=== PATIENT | male | born 1960 | race Caucasian/White ===

== ENCOUNTER 2016-10-01 09:55 | Inpatient (IN) | payer OTHER ==
[2016-10-01] MEDS ORDERED: oxyCODONE/Acetamin 5/325 MG* TAB PO PRN (12:05)
[2016-10-01] MEDS ORDERED: Ondansetron INJ* 2 MG/ML VIAL IV PRN (12:30)
[2016-10-01] MEDS: VINCRISTINE IVPB SCH (16:23)
[2016-10-01] MEDS: NS 0.9% IVPB SCH (16:23)
[2016-10-01] MEDS: ETOPOSIDE IVPB SCH (16:23)
[2016-10-01] MEDS: DOXORUBICIN IVPB SCH (16:23)
[2016-10-01] MEDS: predniSONE TAB* 20 MG PO SCH ×2 (16:39→21:01)
[2016-10-01] MEDS: predniSONE TAB* 50 MG PO SCH ×2 (16:39→21:00)
[2016-10-01] MEDS: predniSONE TAB* 5 MG PO SCH ×2 (16:40→21:01)
[2016-10-01] MEDS: Senna TAB PO PRN (20:59)
[2016-10-01] MEDS: Morphine TAB Extended Release (*) 15 MG TAB.ER PO SCH (21:01)
[2016-10-01] MEDS ORDERED: Acetaminophen TAB* 325 MG PO PRN (23:22)
[2016-10-01] MEDS ORDERED: Polyethylene Glycol 3350* 17 GM PACKET PO PRN (23:23)
[2016-10-02 06:44] LABS: Comments Flag Yes; Hematocrit 26 % (42-52); Mean Corpuscular HGB Conc 34 g/dl (31-36); Mean Corpuscular Hemoglobin 29 pg (27-31); Mean Corpuscular Volume 86 fL (80-94); Mean Platelet Volume 8 um3 (7.4-10.4); Red Blood Count 3.08 10^6/ul (4.0-5.4); Red Cell Distribution Width 19 % (10.5-15)
[2016-10-02 07:01] LABS: Albumin 3.6 g/dL (3.2-5.2); BUN/Creatinine Ratio 27.6 (8-20); Calcium 8.8 mg/dL (8.6-10.3); EGFR African American 185.7 (>60); EGFR Non-African American 144.4 (>60); Globulin 2.2 g/dL (2-4); Potassium 4.2 mmol/L (3.5-5.0); Total Bilirubin 0.9 mg/dL (0.2-1.0); Total Protein 5.8 g/dL (6.4-8.9)
[2016-10-02] MEDS: predniSONE TAB* 50 MG PO SCH ×2 (07:40→20:36)
[2016-10-02] MEDS: Allopurinol TAB* 300 MG PO SCH (07:40)
[2016-10-02] MEDS: Morphine TAB Extended Release (*) 15 MG TAB.ER PO SCH ×2 (07:41→20:34)
[2016-10-02] MEDS: predniSONE TAB* 5 MG PO SCH ×2 (07:41→20:36)
[2016-10-02] MEDS: Lisinopril TAB* 5 MG PO SCH (07:41)
[2016-10-02] MEDS: predniSONE TAB* 20 MG PO SCH ×2 (07:41→20:36)
[2016-10-02] MEDS: ETOPOSIDE IVPB SCH (15:46)
[2016-10-02] MEDS: NS 0.9% IVPB SCH (15:46)
[2016-10-02] MEDS: VINCRISTINE IVPB SCH (15:46)
[2016-10-02] MEDS: DOXORUBICIN IVPB SCH (15:46)
[2016-10-03 05:52] LABS: Hematocrit 25 % (42-52); Hemoglobin 8.4 g/dl (14.0-18.0); Mean Corpuscular HGB Conc 34 g/dl (31-36); Mean Corpuscular Hemoglobin 29 pg (27-31); Mean Corpuscular Volume 86 fL (80-94); Mean Platelet Volume 8 um3 (7.4-10.4); Red Cell Distribution Width 19 % (10.5-15)
[2016-10-03 05:54] LABS: Comments Flag Yes; White Blood Count 3.1 10^3/ul (3.5-10.8)
[2016-10-03 06:03] LABS: Albumin 3.2 g/dL (3.2-5.2); Calcium 8.5 mg/dL (8.6-10.3); EGFR African American 220.4 (>60); EGFR Non-African American 171.4 (>60); Globulin 2.1 g/dL (2-4); Potassium 3.9 mmol/L (3.5-5.0); Total Bilirubin 0.6 mg/dL (0.2-1.0); Total Protein 5.3 g/dL (6.4-8.9)
[2016-10-03] MEDS: Allopurinol TAB* 300 MG PO SCH (08:19)
[2016-10-03] MEDS: Lisinopril TAB* 5 MG PO SCH (08:20)
[2016-10-03] MEDS: Morphine TAB Extended Release (*) 15 MG TAB.ER PO SCH ×2 (08:20→22:01)
[2016-10-03] MEDS: predniSONE TAB* 50 MG PO SCH ×2 (08:20→22:01)
[2016-10-03] MEDS: predniSONE TAB* 20 MG PO SCH ×2 (08:21→22:02)
[2016-10-03] MEDS: predniSONE TAB* 5 MG PO SCH ×2 (08:21→22:02)
[2016-10-03] MEDS: NS 0.9% 1000 ML* 1,000 ML IV SCH (09:33)
[2016-10-03] MEDS ORDERED: Polyethylene Glycol 3350* 17 GM PACKET PO SCH (11:00)
[2016-10-03] MEDS: VINCRISTINE IVPB SCH (16:09)
[2016-10-03] MEDS: NS 0.9% IVPB SCH (16:09)
[2016-10-03] MEDS: ETOPOSIDE IVPB SCH (16:09)
[2016-10-03] MEDS: DOXORUBICIN IVPB SCH (16:09)
[2016-10-03] MEDS: Senna TAB PO PRN (22:02)
[2016-10-04 05:05] LABS: Hematocrit 26 % (42-52); Hemoglobin 8.6 g/dl (14.0-18.0); Mean Corpuscular HGB Conc 33 g/dl (31-36); Mean Corpuscular Hemoglobin 28 pg (27-31); Mean Corpuscular Volume 85 fL (80-94); Mean Platelet Volume 8 um3 (7.4-10.4); Red Blood Count 3.03 10^6/ul (4.0-5.4); Red Cell Distribution Width 18 % (10.5-15); White Blood Count 2.1 10^3/ul (3.5-10.8)
[2016-10-04 05:14] LABS: Add Diff/Slide Review? Slide Review Added; Comments Flag Yes
[2016-10-04 05:23] LABS: Albumin 3.1 g/dL (3.2-5.2); Calcium 8.5 mg/dL (8.6-10.3); EGFR African American 220.4 (>60); EGFR Non-African American 171.4 (>60); Globulin 2.3 g/dL (2-4); Potassium 4.1 mmol/L (3.5-5.0); Total Bilirubin 0.5 mg/dL (0.2-1.0); Total Protein 5.4 g/dL (6.4-8.9)
[2016-10-04] MEDS: NS 0.9% 1000 ML* 1,000 ML IV SCH (05:32)
[2016-10-04] MEDS: Morphine TAB Extended Release (*) 15 MG TAB.ER PO SCH ×2 (08:01→20:58)
[2016-10-04] MEDS: Allopurinol TAB* 300 MG PO SCH (08:02)
[2016-10-04] MEDS: predniSONE TAB* 5 MG PO SCH ×2 (08:02→20:59)
[2016-10-04] MEDS: Lisinopril TAB* 5 MG PO SCH (08:02)
[2016-10-04] MEDS: Senna TAB PO PRN (08:02)
[2016-10-04] MEDS: predniSONE TAB* 50 MG PO SCH ×2 (08:03→20:59)
[2016-10-04] MEDS: predniSONE TAB* 20 MG PO SCH ×2 (08:03→20:59)
--- NOTE | 2016-10-04 09:08 | PN ---
Progress Note - Progress Note SOAP: Subjective: []Feeling well overall, no nausea and eating fine. Constipated, but only just started laxatives last night. Curious about showering. Questions if he should still plan a port between C1&2. Medications: Acetaminophen (Tylenol Tab*) 650 mg PO Q6H PRN PRN Reason: FEVER Last Admin: 10/01/16 23:34 Dose: 650 mg Allopurinol (Zyloprim Tab*) 300 mg PO DAILY [facility] Last Admin: 10/04/16 08:02 Dose: 300 mg Heparin Sodium (Porcine) (Heparin Flush Picc/Ml/Cvc(*)) 1 - 3 ml FLUSH 0600, 1800 [facility] PRN Reason: Protocol Last Admin: 10/04/16 04:49 Dose: Not Given Sodium Chloride (Ns 0.9% 1000 Ml*) 1,000 mls @ 50 mls/hr IV .PER RATE [facility] Last Admin: 10/04/16 05:32 Dose: 50 mls/hr Etoposide 105 mg/ Doxorubicin HCl 21 mg/ Vincristine Sulfate 0.84 mg/ Sodium Chloride 516.59 mls @ 21.525 mls/hr IVPB Q24H [facility] Stop: 10/05/16 15:29 Last Admin: 10/03/16 16:09 Dose: 21.525 mls/hr Cyclophosphamide 1,575 mg/ (Sodium Chloride) 328.75 mls @ 789 mls/hr IVPB ONCE ONE Stop: 10/05/16 15:54 Lisinopril (Prinivil Tab*) 5 mg PO DAILY [facility] Last Admin: 10/04/16 08:02 Dose: 5 mg Morphine Sulfate (Ms Contin(*)) 15 mg PO BID [facility] Last Admin: 10/04/16 08:01 Dose: 15 mg Ondansetron HCl (Zofran Inj*) 8 mg IV Q6H PRN PRN Reason: NAUSEA Oxycodone/Acetaminophen (Percocet 5/325 Tab*) 1 tab PO Q6H PRN PRN Reason: PAIN Last Admin: 10/01/16 16:30 Dose: 1 tab Polyethylene Glycol/Electrolytes (Miralax*) 17 gm PO 0800,2100 PRN PRN Reason: CONSTIPATION Prednisone (Deltasone Tab*) 100 mg PO BID [facility] Stop: 10/05/16 21:01 Last Admin: 10/04/16 08:03 Dose: 100 mg Prednisone (Deltasone Tab*) 20 mg PO BID [facility] Stop: 10/05/16 21:01 Last Admin: 10/04/16 08:03 Dose: 20 mg Prednisone (Deltasone Tab*) 5 mg PO BID [facility] Stop: 10/05/16 21:01 Last Admin: 10/04/16 08:02 Dose: 5 mg Senna (Senokot Tab*) 1 tab PO TID [facility] Objective: [] Vital Signs Temp Pulse Resp BP Pulse Ox 97.7 F 60 18 127/68 99 10/04/16 06:53 10/04/16 07:22 10/04/16 08:01 10/04/16 06:53 10/04/16 06:53 A&Ox3, EOMI, PERRLA HRR, S1S2, no murmur noted LS clear bilat. throughout, resp. even and non-labored +BS, abd. soft and non-tender +PP=bilat., no edema noted Right dual lumen PICC benign Laboratory Results - last 24 hr 10/04/16 10/04/16 04:25 04:25 WBC 2.1 L RBC 3.03 L Hgb 8.6 L Hct 26 L MCV 85 MCH 28 MCHC 33 RDW 18 H Plt Count 61 L MPV 8 Neut % (Auto) 85.5 H Lymph % (Auto) 13.3 L [place] % (Auto) 0.9 L Eos % (Auto) 0.1 Baso % (Auto) 0.2 Absolute Neuts (auto) 1.8 Absolute Lymphs (auto) 0.3 L Absolute Monos (auto) 0 Absolute Eos (auto) 0 Absolute Basos (auto) 0 Absolute Nucleated RBC 0.01 Nucleated RBC % 0.3 Sodium 138 Potassium 4.1 Chloride 108 Carbon Dioxide 23 Anion Gap 7 BUN 18 Creatinine 0.50 L Est GFR ( Amer) 220.4 Est GFR (Non-Af Amer) 171.4 BUN/Creatinine Ratio 36.0 H Glucose 163 H Calcium 8.5 L Total Bilirubin 0.50 AST 10 L ALT 23 Alkaline Phosphatase 114 H Total Protein 5.4 L Albumin 3.1 L Globulin 2.3 Albumin/Globulin Ratio 1.3 Assessment: []56 yo with DLBCL currently on C1 EPOCH, D4 and doing well. Plan: []1. Increase laxatives, will need to be d/c'd with colace scheduled d/t Morphine 2. Cont. chemo, no changes today. OK to shower /c switch of bags if desired. 3. Suggest dual lumen port between cycles, we will coordinate as outpatient.
[2016-10-04] MEDS: Polyethylene Glycol 3350* 17 GM PACKET PO PRN ×2 (09:35→20:58)
[2016-10-04] MEDS: Senna TAB PO SCH ×2 (14:25→20:59)
[2016-10-04] MEDS: NS 0.9% IVPB SCH (15:43)
[2016-10-04] MEDS: VINCRISTINE IVPB SCH (15:43)
[2016-10-04] MEDS: DOXORUBICIN IVPB SCH (15:43)
[2016-10-04] MEDS: ETOPOSIDE IVPB SCH (15:43)
[2016-10-05] MEDS: NS 0.9% 1000 ML* 1,000 ML IV SCH (00:35)
[2016-10-05 05:54] LABS: Hematocrit 27 % (42-52); Mean Corpuscular HGB Conc 33 g/dl (31-36); Mean Corpuscular Hemoglobin 28 pg (27-31); Mean Corpuscular Volume 85 fL (80-94); Mean Platelet Volume 8 um3 (7.4-10.4); Red Blood Count 3.19 10^6/ul (4.0-5.4); Red Cell Distribution Width 19 % (10.5-15)
[2016-10-05 06:00] LABS: Comments Flag Yes
[2016-10-05 06:01] LABS: White Blood Count 1.8 10^3/ul (3.5-10.8)
[2016-10-05 06:09] LABS: Albumin 3.2 g/dL (3.2-5.2); BUN/Creatinine Ratio 31.5 (8-20); Calcium 8.4 mg/dL (8.6-10.3); EGFR African American 201.7 (>60); EGFR Non-African American 156.8 (>60); Globulin 2.2 g/dL (2-4); Potassium 3.6 mmol/L (3.5-5.0); Total Bilirubin 0.6 mg/dL (0.2-1.0); Total Protein 5.4 g/dL (6.4-8.9)
[2016-10-05 09:39] VITALS: BP 131/77
[2016-10-05] MEDS: Allopurinol TAB* 300 MG PO SCH (09:39)
[2016-10-05] MEDS: predniSONE TAB* 20 MG PO SCH (09:39)
[2016-10-05] MEDS: Morphine TAB Extended Release (*) 15 MG TAB.ER PO SCH (09:39)
[2016-10-05] MEDS: predniSONE TAB* 5 MG PO SCH (09:40)
[2016-10-05] MEDS: predniSONE TAB* 50 MG PO SCH (09:40)
[2016-10-05] MEDS: Lisinopril TAB* 5 MG PO SCH (09:40)
[2016-10-05] MEDS: Senna TAB PO SCH ×2 (09:41→16:53)
[2016-10-05] MEDS: Polyethylene Glycol 3350* 17 GM PACKET PO PRN (09:49)
--- NOTE | 2016-10-05 11:50 | PN ---
Progress Note - Progress Note SOAP: DISCHARGE NOTE Subjective: [ Doing well and tolerated chemotherapy without significant side effects so far. Cannot sleep in hospital. Has had training on Neupogen shots. Meeting with patient and family to discuss plan of care] Acetaminophen (Tylenol Tab*) 650 mg PO Q6H PRN PRN Reason: FEVER Last Admin: 10/01/16 23:34 Dose: 650 mg Allopurinol (Zyloprim Tab*) 300 mg PO DAILY [facility] Last Admin: 10/05/16 09:39 Dose: 300 mg Heparin Sodium (Porcine) (Heparin Flush Picc/Ml/Cvc(*)) 1 - 3 ml FLUSH 0600, 1800 [facility] PRN Reason: Protocol Last Admin: 10/05/16 05:43 Dose: Not Given Sodium Chloride (Ns 0.9% 1000 Ml*) 1,000 mls @ 50 mls/hr IV .PER RATE [facility] Last Admin: 10/05/16 00:35 Dose: 50 mls/hr Etoposide 105 mg/ Doxorubicin HCl 21 mg/ Vincristine Sulfate 0.84 mg/ Sodium Chloride 516.59 mls @ 21.525 mls/hr IVPB Q24H [facility] Stop: 10/05/16 15:29 Last Admin: 10/04/16 15:43 Dose: 21.525 mls/hr Cyclophosphamide 1,575 mg/ (Sodium Chloride) 328.75 mls @ 789 mls/hr IVPB ONCE ONE Stop: 10/05/16 15:54 Lisinopril (Prinivil Tab*) 5 mg PO DAILY [facility] Last Admin: 10/05/16 09:40 Dose: 5 mg Morphine Sulfate (Ms Contin(*)) 15 mg PO BID [facility] Last Admin: 10/05/16 09:39 Dose: 15 mg Ondansetron HCl (Zofran Inj*) 8 mg IV Q6H PRN PRN Reason: NAUSEA Oxycodone/Acetaminophen (Percocet 5/325 Tab*) 1 tab PO Q6H PRN PRN Reason: PAIN Last Admin: 10/01/16 16:30 Dose: 1 tab Polyethylene Glycol/Electrolytes (Miralax*) 17 gm PO 0800,2100 PRN PRN Reason: CONSTIPATION Last Admin: 10/05/16 09:49 Dose: 17 gm Prednisone (Deltasone Tab*) 100 mg PO BID [facility] Stop: 10/05/16 21:01 Last Admin: 10/05/16 09:40 Dose: 100 mg Prednisone (Deltasone Tab*) 20 mg PO BID [facility] Stop: 10/05/16 21:01 Last Admin: 10/05/16 09:39 Dose: 20 mg Prednisone (Deltasone Tab*) 5 mg PO BID [facility] Stop: 10/05/16 21:01 Last Admin: 10/05/16 09:40 Dose: 5 mg Senna (Senokot Tab*) 1 tab PO TID [facility] Last Admin: 10/05/16 09:41 Dose: 1 tab Objective: [] Vital Signs Temp Pulse Resp BP Pulse Ox 97.5 F 67 18 131/77 99 10/05/16 07:53 10/05/16 07:53 10/05/16 09:39 10/05/16 07:53 10/05/16 07:53 HEENT: Mucosa moist, no lesions. No LAD CTA RRR S1S2 Good BS, NT and ND No peripheral LAD Skin w/o lesions Assessment: [] 56 year old male with DLBCL, multifocal bone marrow infiltration, positive for c-myc mutation, bcl-2 and bcl-6. Day #5 R- daEPOCH. 1. Will plan discharge today after completion of chemotherapy. 2. Neupogen at home for 10 days 3. Follow up on 10/15/16 4. Extensive discussion about diagnosis, reason for current treatment, plan for care and prognosis. Also discussed again need for IT chemotherapy cycles 2-5. 5. PET scan after cycle 3 6. Cytopenias should improve with therapy, will follo 7. Follow up Hep B testing, LFTs. 8. Rapid taper Prednisone, home meds for nausea discussed. time with patient and family 70 min. Plan: []
[2016-10-05] MEDS ORDERED: NS 0.9% IVPB ONE (15:30)
[2016-10-05] MEDS ORDERED: CYCLOPHOSPHAMIDE IVPB ONE (15:30)
[2016-10-05] MEDS ORDERED: predniSONE TAB* 50 MG PO ONE (16:30)
[2016-10-05] MEDS ORDERED: predniSONE TAB* 10 MG PO ONE (16:30)
[2016-10-05] MEDS ORDERED: predniSONE TAB* 5 MG PO ONE (16:30)
--- NOTE | 2017-01-09 09:09 | DS ---
DISCHARGE SUMMARY: DATE OF ADMISSION: 10/01/16 DATE OF DISCHARGE: 10/05/16 ATTENDING PHYSICIAN: Dr. 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 2. Gout: Stable on current medications. DISCHARGE MEDICATIONS: 1. Acetaminophen 650 mg p.o. q.6 hours p.r.n. pain, do not take for fever unless directed by office. 2. MiraLAX 17 g p.o. b.i.d. p.r.n. constipation. 3. Neupogen 480 mcg subcutaneously daily as directed following chemotherapy, starting day six. 4. Percocet 5/325 mg 1 tab p.o. daily q.6 hours p.r.n. pain. 5. Allopurinol 300 mg p.o. every day. 6. Lisinopril 5 mg p.o. every day. 7. Colchicine 0.6 mg p.o. q.12 hours p.r.n. pain. 8. Morphine 1 tab p.o. b.i.d. 9. Senna 1 tab p.o. daily p.r.n. constipation. HOSPITAL COURSE: Please see admission note for full H and P; however, briefly, Mr. Lamar was recently diagnosed with triple-hit lymphoma and was admitted for initiation of dose-adjusted EPOCH. He was admitted on day one of cycle one , 10/01/16, with known cytopenias related to his disease process. He received a peripherally inserted central line for treatment with cycle one, and plan was to consider port with cycle two. Cycle one was tolerated without difficulty and no complications. Dr. Ayers met with the patient during the admission to discuss the plan of care at length. On discharge, the patient had no complaints or concern. He had excellent understanding of the plan of care. TIME SPENT: Greater than 40 minutes were spent with greater than 50% in face-to - face counseling. ANANYA STEWART, ANDREI [id number]/[facility] #: [id number] MTDD
== END 2016-10-05 17:15 | disposition home or self-care (01) | DRG 847 ==
LOC: MED 11:39
PROVIDERS: ADMIT Internal Medicine Hematology & Oncology; ATTEND Internal Medicine Hematology & Oncology
DX: Z51.11 Encounter for antineoplastic chemotherapy (principal); C83.30 Diffuse large B-cell lymphoma, unspecified site; D69.6 Thrombocytopenia, unspecified; K59.00 Constipation, unspecified
CPT/HCPCS: 36415; 36569; 36591; 80053; 85025; 85060; 86703; 86705; 86706; 86708; 86803; 87340; 96367; 96375; 96413; 96415; 99212; 99214; 99223; 99232; 99239; A9270-GY; C1751; G0463; J1200; J1453; J2469; J7512; J9000; J9070; J9181; J9310; J9370

== ENCOUNTER 2016-10-22 16:35 | Inpatient (IN) | payer OTHER ==
[~2016-10-22 16:35] MED LIST: Acetaminophen TAB* 325 MG PO PRN; Ondansetron TAB* 4 MG PO PRN; Prochlorperazine TAB* 10 MG PO PRN; Senna TAB PO PRN; oxyCODONE/Acetamin 5/325 MG* TAB PO PRN; traZODone TAB* 50 MG TAB PO PRN
[2016-10-22] MEDS: NS 0.9% 1000 ML* 1,000 ML IV SCH (17:15)
[2016-10-22] MEDS: ETOPOSIDE IVPB SCH (17:28)
[2016-10-22] MEDS: VINCRISTINE IVPB SCH (17:28)
[2016-10-22] MEDS: DOXORUBICIN IVPB SCH (17:28)
[2016-10-22] MEDS: NS 0.9% IVPB SCH (17:28)
[2016-10-22] MEDS ORDERED: Miracle MW-Ben/Nyst/Tetrac SWISH SPIT SCH (18:00)
[2016-10-22] MEDS ORDERED: Magic M W2 Ben/Maal/Nyst/Lido* 240 ML MOUTHWASH (alt formulation) SWISH SPIT PRN (18:26)
[2016-10-22] MEDS: Morphine TAB Extended Release (*) 15 MG TAB.ER PO SCH (20:32)
[2016-10-22] MEDS: predniSONE TAB* 50 MG PO SCH (20:32)
[2016-10-22] MEDS: Enoxaparin(*) 40 MG/0.4 ML SYR SUBCUT SCH (20:33)
[2016-10-23] MEDS: NS 0.9% 1000 ML* 1,000 ML IV SCH ×3 (03:34→23:15)
[2016-10-23 05:44] LABS: Hematocrit 23 % (42-52); Hemoglobin 7.5 g/dl (14.0-18.0); Mean Corpuscular HGB Conc 33 g/dl (31-36); Mean Corpuscular Hemoglobin 29 pg (27-31); Mean Corpuscular Volume 88 fL (80-94); Mean Platelet Volume 8 um3 (7.4-10.4); Red Blood Count 2.64 10^6/ul (4.0-5.4); Red Cell Distribution Width 20 % (10.5-15)
[2016-10-23 05:47] LABS: Comments Flag Yes
[2016-10-23 05:48] LABS: Add Diff/Slide Review? Slide Review Added
[2016-10-23 05:53] LABS: Albumin 3.4 g/dL (3.2-5.2); BUN/Creatinine Ratio 22.9 (8-20); EGFR African American 231.1 (>60); EGFR Non-African American 179.7 (>60); Globulin 2.3 g/dL (2-4); Potassium 4.5 mmol/L (3.5-5.0); Total Bilirubin 0.7 mg/dL (0.2-1.0); Total Protein 5.7 g/dL (6.4-8.9)
[2016-10-23] MEDS ORDERED: OMEPRAZOLE 10 MG CAPSULE PO SCH (07:30)
[2016-10-23] MEDS: Allopurinol TAB* 300 MG PO SCH (08:24)
[2016-10-23] MEDS: predniSONE TAB* 50 MG PO SCH ×2 (08:24→20:55)
[2016-10-23] MEDS: Lisinopril TAB* 5 MG PO SCH (08:24)
[2016-10-23] MEDS: Morphine TAB Extended Release (*) 15 MG TAB.ER PO SCH ×2 (08:24→20:54)
--- NOTE | 2016-10-23 11:04 | PN ---
Progress Note - Progress Note SOAP: Subjective: []Feeling well overall. Hair started to fall out, having a little tenderness to scalp. Mouth sores with last cycle and so aware of being cautious about this. Eating and drinking well. Good UO (approx. q90 min). BM yesterday, taking laxatives. Ambulating around unit with no SOB. No neuropathy, headache, lightheadedness, or dizziness. Medications: Acetaminophen (Tylenol Tab*) 650 mg PO Q6H PRN PRN Reason: PAIN Allopurinol (Zyloprim Tab*) 300 mg PO DAILY [facility] Last Admin: 10/23/16 08:24 Dose: 300 mg Enoxaparin Sodium (Lovenox(*)) 40 mg SUBCUT Q24H [facility] Last Admin: 10/22/16 20:33 Dose: 40 mg Doxorubicin HCl 25.2 mg/Etoposide 126 mg/ Vincristine Sulfate 0.84 mg/ Sodium Chloride 519.74 mls @ 21.656 mls/hr IVPB DAILY@1700 [facility] Stop: 10/26/16 16:59 Last Admin: 10/22/16 17:28 Dose: 21.656 mls/hr Cyclophosphamide 1,890 mg/ (Sodium Chloride) 594.5 mls @ 792.667 mls/hr IVPB ONCE@1700 [facility] Stop: 10/26/16 17:44 Sodium Chloride (Ns 0.9% 1000 Ml*) 1,000 mls @ 100 mls/hr IV PER RATE [facility] Stop: 10/26/16 17:59 Last Admin: 10/23/16 03:34 Dose: 100 mls/hr Lisinopril (Prinivil Tab*) 5 mg PO DAILY [facility] Last Admin: 10/23/16 08:24 Dose: 5 mg Morphine Sulfate (Ms Contin(*)) 15 mg PO BID [facility] Last Admin: 10/23/16 08:24 Dose: 15 mg Multi-Ingredient Mouthwash/Gargle (Magic M W2 Jerrod/Maal/Nyst/Lido*) 5 ml SWISH SPIT Q6H PRN PRN Reason: MOUTH PAIN Omeprazole (Prilosec Cap*) 20 mg PO DAILY@0600 [facility] Ondansetron HCl (Zofran Tab*) 4 mg PO Q4H PRN PRN Reason: NAUSEA Oxycodone/Acetaminophen (Percocet 5/325 Tab*) 1 tab PO Q6H PRN PRN Reason: PAIN Polyethylene Glycol/Electrolytes (Miralax*) 17 gm PO 0800,2100 PRN PRN Reason: CONSTIPATION Prednisone (Deltasone Tab*) 125 mg PO BID [facility] Stop: 10/27/16 09:01 Last Admin: 10/23/16 08:24 Dose: 125 mg Prochlorperazine (Compazine Tab*) 10 mg PO Q6H PRN PRN Reason: NAUSEA Senna (Senokot Tab*) 1 tab PO DAILY PRN PRN Reason: CONSTIPATION Trazodone HCl (Desyrel Tab*) 50 mg PO BEDTIME [facility] Objective: [] Vital Signs Temp Pulse Resp BP Pulse Ox 97.7 F 66 18 125/67 97 10/23/16 07:27 10/23/16 07:27 10/23/16 09:42 10/23/16 07:27 10/23/16 07:27 A&Ox3, EOMI, [place], neuro grossly non-focal HRR, no murmur noted, S1S2 LS clear bilat., resp. even and non-labored +BSx4, abd. soft and non-tender, spleen not felt +PP=bilat., no edema present Laboratory Results - last 24 hr 10/23/16 10/23/16 05:25 05:25 WBC 3.0 L RBC 2.64 L Hgb 7.5 L Hct 23 L MCV 88 MCH 29 MCHC 33 RDW 20 H Plt Count 96 L MPV 8 Neut % (Auto) 82.4 Lymph % (Auto) 14.4 L [place] % (Auto) 2.3 Eos % (Auto) 0.1 Baso % (Auto) 0.8 Absolute Neuts (auto) 2.5 Absolute Lymphs (auto) 0.4 L Absolute Monos (auto) 0.1 Absolute Eos (auto) 0 Absolute Basos (auto) 0 Absolute Nucleated RBC 0.03 Nucleated RBC % 1.1 Sodium 134 Potassium 4.5 Chloride 104 Carbon Dioxide 24 Anion Gap 6 BUN 11 Creatinine 0.48 L Est GFR ( Amer) 231.1 Est GFR (Non-Af Amer) 179.7 BUN/Creatinine Ratio 22.9 H Glucose 146 H Calcium 9.0 Total Bilirubin 0.70 AST 8 L ALT 13 Alkaline Phosphatase 218 H Total Protein 5.7 L Albumin 3.4 Globulin 2.3 Albumin/Globulin Ratio 1.5 Assessment: []56 yo male with DLBCL currently receiving C2 EPOCH and tolerating well thus far. Plan: []1. Continue chemo as planned, no change in supportive meds 2. Follow daily labs, likely to need transfusion RBCs after this cycle 3. Cont. DVT prophylaxis while plt. >75
[2016-10-23] MEDS: NS 0.9% IVPB SCH (16:28)
[2016-10-23] MEDS: ETOPOSIDE IVPB SCH (16:28)
[2016-10-23] MEDS: VINCRISTINE IVPB SCH (16:28)
[2016-10-23] MEDS: DOXORUBICIN IVPB SCH (16:28)
[2016-10-23] MEDS: traZODone TAB* 50 MG TAB PO SCH (20:54)
[2016-10-23] MEDS: Enoxaparin(*) 40 MG/0.4 ML SYR SUBCUT SCH (20:59)
[2016-10-24 06:07] LABS: Hematocrit 21 % (42-52); Mean Corpuscular HGB Conc 32 g/dl (31-36); Mean Corpuscular Hemoglobin 29 pg (27-31); Mean Corpuscular Volume 89 fL (80-94); Mean Platelet Volume 9 um3 (7.4-10.4); Red Blood Count 2.39 10^6/ul (4.0-5.4); Red Cell Distribution Width 22 % (10.5-15); White Blood Count 3.7 10^3/ul (3.5-10.8)
[2016-10-24 06:18] LABS: Add Diff/Slide Review? Slide Review Added; Albumin 3.3 g/dL (3.2-5.2); BUN/Creatinine Ratio 25.5 (8-20); Calcium 8.7 mg/dL (8.6-10.3); Comments Flag Yes; EGFR African American 215.4 (>60); EGFR Non-African American 167.5 (>60); Hemoglobin 6.9 g/dl (14.0-18.0); Total Bilirubin 0.6 mg/dL (0.2-1.0); Total Protein 5.3 g/dL (6.4-8.9)
[2016-10-24] MEDS: NS 0.9% 1000 ML* 1,000 ML IV SCH (09:23)
--- NOTE | 2016-10-24 10:02 | PN ---
Progress Note - Progress Note SOAP: Subjective: []Feeling fine. No issues with chemo. No excessive fatigue. Ambulating around unit well with no complaints of difficulty breathing. No headache/dizziness/lightheadedness (with rest, exertion, or change position) . No ringing in ears. No numbness/tingling. No chest pain/pressure/palpitations. No SOB, difficulty breathing, or cough. No nausea/vomiting. Eating fine. No BM today so requested miralax. Wonders why he is getting injections in abd. Medications: Acetaminophen (Tylenol Tab*) 650 mg PO Q6H PRN PRN Reason: PAIN Allopurinol (Zyloprim Tab*) 300 mg PO DAILY [facility] Last Admin: 10/23/16 08:24 Dose: 300 mg Enoxaparin Sodium (Lovenox(*)) 40 mg SUBCUT Q24H [facility] Last Admin: 10/23/16 20:59 Dose: 40 mg Doxorubicin HCl 25.2 mg/Etoposide 126 mg/ Vincristine Sulfate 0.84 mg/ Sodium Chloride 519.74 mls @ 21.656 mls/hr IVPB DAILY@1700 [facility] Stop: 10/26/16 16:59 Last Admin: 10/23/16 16:28 Dose: 21.656 mls/hr Cyclophosphamide 1,890 mg/ (Sodium Chloride) 594.5 mls @ 792.667 mls/hr IVPB ONCE@1700 [facility] Stop: 10/26/16 17:44 Sodium Chloride (Ns 0.9% 1000 Ml*) 1,000 mls @ 100 mls/hr IV PER RATE [facility] Stop: 10/26/16 17:59 Last Admin: 10/24/16 09:23 Dose: 100 mls/hr Lisinopril (Prinivil Tab*) 5 mg PO DAILY [facility] Last Admin: 10/23/16 08:24 Dose: 5 mg Morphine Sulfate (Ms Contin(*)) 15 mg PO BID [facility] Last Admin: 10/23/16 20:54 Dose: 15 mg Multi-Ingredient Mouthwash/Gargle (Magic M W2 [place]/Maal/Nyst/Lido*) 5 ml SWISH SPIT Q6H PRN PRN Reason: MOUTH PAIN Omeprazole (Prilosec Cap*) 20 mg PO DAILY@0600 [facility] Ondansetron HCl (Zofran Tab*) 4 mg PO Q4H PRN PRN Reason: NAUSEA Oxycodone/Acetaminophen (Percocet 5/325 Tab*) 1 tab PO Q6H PRN PRN Reason: PAIN Polyethylene Glycol/Electrolytes (Miralax*) 17 gm PO 0800,2100 PRN PRN Reason: CONSTIPATION Prednisone (Deltasone Tab*) 125 mg PO BID [facility] Stop: 10/27/16 09:01 Last Admin: 10/23/16 20:55 Dose: 125 mg Prochlorperazine (Compazine Tab*) 10 mg PO Q6H PRN PRN Reason: NAUSEA Senna (Senokot Tab*) 1 tab PO DAILY PRN PRN Reason: CONSTIPATION Trazodone HCl (Desyrel Tab*) 50 mg PO BEDTIME [facility] Last Admin: 10/23/16 20:54 Dose: 50 mg Objective: [] Vital Signs Temp Pulse Resp BP Pulse Ox 97.9 F 68 16 109/49 99 10/23/16 23:47 10/23/16 23:47 10/23/16 23:47 10/23/16 23:47 10/23/16 23:47 A&Ox3, EOMI, PERRLA, [place], states good understanding of conversation and plan of care HRR, S1S2, no murmur noted LS clear bilat. throughout, resp. even and non-labored +BSx4, abd. soft and non-tender +PP=bilat., no edema noted Laboratory Results - last 24 hr 10/24/16 10/24/16 05:40 05:40 WBC 3.7 RBC 2.39 L Hgb 6.9 L Hct 21 L MCV 89 MCH 29 MCHC 32 RDW 22 H Plt Count 100 L MPV 9 Neut % (Auto) 90.1 H Lymph % (Auto) 6.4 L [place] % (Auto) 3.3 Eos % (Auto) 0 Baso % (Auto) 0.2 Absolute Neuts (auto) 3.3 Absolute Lymphs (auto) 0.2 L Absolute Monos (auto) 0.1 Absolute Eos (auto) 0 Absolute Basos (auto) 0 Absolute Nucleated RBC 0.01 Nucleated RBC % 0.3 Sodium 140 Potassium 4.0 Chloride 110 Carbon Dioxide 23 Anion Gap 7 BUN 13 Creatinine 0.51 L Est GFR ( Amer) 215.4 Est GFR (Non-Af Amer) 167.5 BUN/Creatinine Ratio 25.5 H Glucose 147 H Calcium 8.7 Total Bilirubin 0.60 AST 17 ALT 20 Alkaline Phosphatase 180 H Total Protein 5.3 L Albumin 3.3 Globulin 2.0 Albumin/Globulin Ratio 1.7 Assessment: []56 yo with 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 Anemia related to disease and chemotherapy, will follow and transfuse for symptoms. Plan: []1. Continue chemo as ordered, no change 2. Miralax this AM and repeat tonight if no BM, increase senna PRN, cont. to enc. PO fluids 3. Follow daily labs - currently asymptomatic and therefore will hold off on any transfusion (goal to hold off until completes tx. if possible) 4. Enc.'d ambulation, Lovenox for DVT prophylaxis 5. Pt. to call [employer] ( ) for Neupogen delivery 6. Surgical consult as outpatient for double lumen port with next cycle (due to difficulty with PICCs)
[2016-10-24] MEDS: Lisinopril TAB* 5 MG PO SCH (10:37)
[2016-10-24] MEDS: predniSONE TAB* 50 MG PO SCH ×2 (10:37→20:36)
[2016-10-24] MEDS: Allopurinol TAB* 300 MG PO SCH (10:37)
[2016-10-24] MEDS: Morphine TAB Extended Release (*) 15 MG TAB.ER PO SCH ×2 (10:38→20:37)
[2016-10-24] MEDS: Senna TAB PO PRN (10:38)
[2016-10-24] MEDS: Omeprazole CAP* 20 MG PO SCH (10:39)
[2016-10-24] MEDS: DOXORUBICIN IVPB SCH (16:58)
[2016-10-24] MEDS: ETOPOSIDE IVPB SCH (16:58)
[2016-10-24] MEDS: VINCRISTINE IVPB SCH (16:58)
[2016-10-24] MEDS: NS 0.9% IVPB SCH (16:58)
[2016-10-24] MEDS: Enoxaparin(*) 40 MG/0.4 ML SYR SUBCUT SCH (20:35)
[2016-10-24] MEDS: traZODone TAB* 50 MG TAB PO SCH (20:38)
[2016-10-25] MEDS: Omeprazole CAP* 20 MG PO SCH (06:28)
[2016-10-25 06:46] LABS: Hematocrit 19 % (42-52); Mean Corpuscular HGB Conc 33 g/dl (31-36); Mean Corpuscular Hemoglobin 29 pg (27-31); Mean Corpuscular Volume 88 fL (80-94); Mean Platelet Volume 9 um3 (7.4-10.4); Red Blood Count 2.18 10^6/ul (4.0-5.4); Red Cell Distribution Width 20 % (10.5-15)
[2016-10-25 06:53] LABS: Comments Flag Yes; White Blood Count 2.9 10^3/ul (3.5-10.8)
[2016-10-25 06:54] LABS: Hemoglobin 6.4 g/dl (14.0-18.0)
[2016-10-25 07:09] LABS: Albumin 3.1 g/dL (3.2-5.2); BUN/Creatinine Ratio 32.6 (8-20); Calcium 8.3 mg/dL (8.6-10.3); EGFR African American 242.7 (>60); EGFR Non-African American 188.7 (>60); Globulin 1.9 g/dL (2-4); Potassium 3.7 mmol/L (3.5-5.0); Total Bilirubin 0.6 mg/dL (0.2-1.0)
--- NOTE | 2016-10-25 09:11 | PN ---
Progress Note - Progress Note SOAP: Subjective: []Feeling really well. No complaints. Had a BM last night. No fatigue, no SOB (although hasn't walked around unit this AM). Denies lightheadedness/dizziness. No mouth sores, eating well. No neuropathy. Medications: Acetaminophen (Tylenol Tab*) 650 mg PO Q6H PRN PRN Reason: PAIN Allopurinol (Zyloprim Tab*) 300 mg PO DAILY [facility] Last Admin: 10/24/16 10:37 Dose: 300 mg Enoxaparin Sodium (Lovenox(*)) 40 mg SUBCUT Q24H [facility] Last Admin: 10/24/16 20:35 Dose: 40 mg Doxorubicin HCl 25.2 mg/Etoposide 126 mg/ Vincristine Sulfate 0.84 mg/ Sodium Chloride 519.74 mls @ 21.656 mls/hr IVPB DAILY@1700 [facility] Stop: 10/26/16 16:59 Last Admin: 10/24/16 16:58 Dose: 21.656 mls/hr Cyclophosphamide 1,890 mg/ (Sodium Chloride) 594.5 mls @ 792.667 mls/hr IVPB ONCE@1700 ONE Stop: 10/26/16 17:44 Lisinopril (Prinivil Tab*) 5 mg PO DAILY [facility] Last Admin: 10/24/16 10:37 Dose: 5 mg Morphine Sulfate (Ms Contin(*)) 15 mg PO BID [facility] Last Admin: 10/24/16 20:37 Dose: 15 mg Multi-Ingredient Mouthwash/Gargle (Magic M W2 Jerrod/Maal/Nyst/Lido*) 5 ml SWISH SPIT Q6H PRN PRN Reason: MOUTH PAIN Omeprazole (Prilosec Cap*) 20 mg PO DAILY@0600 [facility] Last Admin: 10/25/16 06:28 Dose: 20 mg Ondansetron HCl (Zofran Tab*) 4 mg PO Q4H PRN PRN Reason: NAUSEA Oxycodone/Acetaminophen (Percocet 5/325 Tab*) 1 tab PO Q6H PRN PRN Reason: PAIN Polyethylene Glycol/Electrolytes (Miralax*) 17 gm PO 0800,2100 PRN PRN Reason: CONSTIPATION Prednisone (Deltasone Tab*) 125 mg PO BID [facility] Stop: 10/27/16 09:01 Last Admin: 10/24/16 20:36 Dose: 125 mg Prochlorperazine (Compazine Tab*) 10 mg PO Q6H PRN PRN Reason: NAUSEA Senna (Senokot Tab*) 2 tab PO BID PRN PRN Reason: CONSTIPATION Last Admin: 10/24/16 10:38 Dose: 2 tab Trazodone HCl (Desyrel Tab*) 50 mg PO BEDTIME [facility] Last Admin: 10/24/16 20:38 Dose: 50 mg Objective: [] Vital Signs Temp Pulse Resp BP Pulse Ox 98.2 F 72 16 103/47 98 10/24/16 23:57 10/24/16 23:57 10/24/16 23:57 10/24/16 23:57 10/24/16 23:57 A&Ox3, EOMI, PERRLA, [place], neuro grossly non-focal HRR, no murmur noted, S1S2 LS clear bilat. throughout, resp. even and non-labored +BS, abd. soft and non-tender +pp=bilat., no edema noted Laboratory Results - last 24 hr 10/25/16 10/25/16 10/25/16 06:00 06:00 06:00 WBC 2.9 L RBC 2.18 L Hgb 6.4 L* Hct 19 L MCV 88 MCH 29 MCHC 33 RDW 20 H Plt Count 92 L MPV 9 Neut % (Auto) 92.0 H Lymph % (Auto) 5.9 L [place] % (Auto) 1.7 Eos % (Auto) 0 Baso % (Auto) 0.4 Absolute Neuts (auto) 2.7 Absolute Lymphs (auto) 0.2 L Absolute Monos (auto) 0.1 Absolute Eos (auto) 0 Absolute Basos (auto) 0 Absolute Nucleated RBC 0.01 Nucleated RBC % 0.2 Sodium 139 Potassium 3.7 Chloride 109 Carbon Dioxide 24 Anion Gap 6 BUN 15 Creatinine 0.46 L Est GFR ( Amer) 242.7 Est GFR (Non-Af Amer) 188.7 BUN/Creatinine Ratio 32.6 H Glucose 136 H Calcium 8.3 L Total Bilirubin 0.60 AST 22 ALT 36 Alkaline Phosphatase 157 H Total Protein 5.0 L Albumin 3.1 L Globulin 1.9 L Albumin/Globulin Ratio 1.6 Blood Type A Positive Antibody Screen Negative Crossmatch See Detail Assessment: []56 yo male with triple hit DLBCL currently receiving cycle 2 da-EPOCH and tolerating very well. On admission he was anemic however he has dropped approx. unit but while receiving IV fluids (NS @ 100 mL/hr continuous), he has no symptoms at all at this time. Plan: []1. DLBCL: continue chemo as ordered, no change in supportive meds today 2. Anemia: 2/2 lymphoma and partially chemotherapy induced, STOP NS. Recheck CBC @ noon today and determine transfusion today or tomorrow based on results. D/C tomorrow evening after completion of tx.
[2016-10-25] MEDS: Senna TAB PO PRN (10:10)
[2016-10-25] MEDS: Lisinopril TAB* 5 MG PO SCH (10:11)
[2016-10-25] MEDS: predniSONE TAB* 50 MG PO SCH ×2 (10:11→20:22)
[2016-10-25] MEDS: Allopurinol TAB* 300 MG PO SCH (10:11)
[2016-10-25] MEDS: Morphine TAB Extended Release (*) 15 MG TAB.ER PO SCH ×2 (10:11→20:23)
[2016-10-25 13:20] LABS: Hematocrit 20 % (42-52); Mean Corpuscular HGB Conc 33 g/dl (31-36); Mean Corpuscular Hemoglobin 29 pg (27-31); Mean Corpuscular Volume 88 fL (80-94); Mean Platelet Volume 9 um3 (7.4-10.4); Red Blood Count 2.25 10^6/ul (4.0-5.4); Red Cell Distribution Width 21 % (10.5-15)
[2016-10-25 13:27] LABS: Comments Flag Yes; Hemoglobin 6.5 g/dl (14.0-18.0); White Blood Count 3.4 10^3/ul (3.5-10.8)
[2016-10-25] MEDS: NS 0.9% IVPB SCH (16:49)
[2016-10-25] MEDS: VINCRISTINE IVPB SCH (16:49)
[2016-10-25] MEDS: ETOPOSIDE IVPB SCH (16:49)
[2016-10-25] MEDS: DOXORUBICIN IVPB SCH (16:49)
[2016-10-25] MEDS: Polyethylene Glycol 3350* 17 GM PACKET PO PRN (16:51)
[2016-10-25] MEDS: Enoxaparin(*) 40 MG/0.4 ML SYR SUBCUT SCH (20:22)
[2016-10-25] MEDS: traZODone TAB* 50 MG TAB PO SCH (20:25)
[2016-10-26] MEDS: Omeprazole CAP* 20 MG PO SCH (06:13)
[2016-10-26 06:29] LABS: Hematocrit 19 % (42-52); Mean Corpuscular HGB Conc 33 g/dl (31-36); Mean Corpuscular Hemoglobin 29 pg (27-31); Mean Corpuscular Volume 88 fL (80-94); Mean Platelet Volume 8 um3 (7.4-10.4); Red Blood Count 2.16 10^6/ul (4.0-5.4); Red Cell Distribution Width 20 % (10.5-15)
[2016-10-26 06:38] LABS: Comments Flag Yes; White Blood Count 1.8 10^3/ul (3.5-10.8)
[2016-10-26 06:39] LABS: Hemoglobin 6.2 g/dl (14.0-18.0)
[2016-10-26 06:57] LABS: Albumin 3.1 g/dL (3.2-5.2); BUN/Creatinine Ratio 38.3 (8-20); Calcium 8.2 mg/dL (8.6-10.3); EGFR African American 236.7 (>60); EGFR Non-African American 184.1 (>60); Globulin 1.8 g/dL (2-4); Potassium 3.6 mmol/L (3.5-5.0); Total Bilirubin 0.6 mg/dL (0.2-1.0); Total Protein 4.9 g/dL (6.4-8.9)
[2016-10-26] MEDS: predniSONE TAB* 50 MG PO SCH (08:44)
[2016-10-26] MEDS: Lisinopril TAB* 5 MG PO SCH (08:44)
[2016-10-26] MEDS: Senna TAB PO PRN (08:45)
[2016-10-26] MEDS: Morphine TAB Extended Release (*) 15 MG TAB.ER PO SCH (08:45)
[2016-10-26] MEDS: Allopurinol TAB* 300 MG PO SCH (08:46)
[2016-10-26] MEDS: Polyethylene Glycol 3350* 17 GM PACKET PO PRN (08:46)
[2016-10-26 09:27] LABS: Iron 264 ug/dL (50-212); Total Iron Binding Capacity 290 mcg/dL (250-450); Transferrin 207 mg/dL (203-362)
[2016-10-26 09:46] LABS: Ferritin 1109.5 ng/mL (24-336)
[2016-10-26 09:51] LABS: Vitamin B12 > 1450 pg/mL (180-914)
--- NOTE | 2016-10-26 10:43 | PN ---
Progress Note - Progress Note SOAP: DISCHARGE NOTE Subjective: []Doing well overall. Tolerating therapy. No major issues on last cycle after going home. Has Neupogen for home injection. Last day of Prednisone given today. Acetaminophen (Tylenol Tab*) 650 mg PO Q6H PRN PRN Reason: PAIN Allopurinol (Zyloprim Tab*) 300 mg PO DAILY [facility] Last Admin: 10/26/16 08:46 Dose: 300 mg Enoxaparin Sodium (Lovenox(*)) 40 mg SUBCUT Q24H [facility] Last Admin: 10/25/16 20:22 Dose: 40 mg Doxorubicin HCl 25.2 mg/Etoposide 126 mg/ Vincristine Sulfate 0.84 mg/ Sodium Chloride 519.74 mls @ 21.656 mls/hr IVPB DAILY@1700 [facility] Stop: 10/26/16 16:59 Last Admin: 10/25/16 16:49 Dose: 21.656 mls/hr Cyclophosphamide 1,890 mg/ (Sodium Chloride) 594.5 mls @ 792.667 mls/hr IVPB ONCE@1700 [facility] Stop: 10/26/16 17:44 Lisinopril (Prinivil Tab*) 5 mg PO DAILY [facility] Last Admin: 10/26/16 08:44 Dose: 5 mg Morphine Sulfate (Ms Contin(*)) 15 mg PO BID [facility] Last Admin: 10/26/16 08:45 Dose: 15 mg Multi-Ingredient Mouthwash/Gargle (Magic M W2 Jerrod/Maal/Nyst/Lido*) 5 ml SWISH SPIT Q6H PRN PRN Reason: MOUTH PAIN Omeprazole (Prilosec Cap*) 20 mg PO DAILY@0600 [facility] Last Admin: 10/26/16 06:13 Dose: 20 mg Ondansetron HCl (Zofran Tab*) 4 mg PO Q4H PRN PRN Reason: NAUSEA Oxycodone/Acetaminophen (Percocet 5/325 Tab*) 1 tab PO Q6H PRN PRN Reason: PAIN Polyethylene Glycol/Electrolytes (Miralax*) 17 gm PO 0800,2100 PRN PRN Reason: CONSTIPATION Last Admin: 10/26/16 08:46 Dose: 17 gm Prednisone (Deltasone Tab*) 125 mg PO BID [facility] Stop: 10/27/16 09:01 Last Admin: 10/26/16 08:44 Dose: 125 mg Prochlorperazine (Compazine Tab*) 10 mg PO Q6H PRN PRN Reason: NAUSEA Senna (Senokot Tab*) 2 tab PO BID PRN PRN Reason: CONSTIPATION Last Admin: 10/26/16 08:45 Dose: 2 tab Trazodone HCl (Desyrel Tab*) 50 mg PO BEDTIME [facility] Last Admin: 10/25/16 20:25 Dose: 50 mg Objective: [] Vital Signs Temp Pulse Resp BP Pulse Ox 97.9 F 63 18 132/62 99 10/26/16 07:41 10/26/16 07:41 10/26/16 08:45 10/26/16 07:41 10/26/16 07:41 HEENT - No thrush and no lesions CTA RRR S1S2 Good BS and NT/ND Ext without edema Assessment: []Will discharge today after cycle 2 of daEPOCH-R. Plan: []1. Tx 2 UPRBC today then discharge home 2. Neupogen x 10 days starting tomorrow 3. High risk cyctopenias, follow up next week in office with CBC 4. Will need day 15 CBC to plan follow up dose. 5. Call for fevers, nausea or any other concerns
[2016-10-26] MEDS ORDERED: NS 0.9% IVPB ONE (17:00)
[2016-10-26] MEDS ORDERED: CYCLOPHOSPHAMIDE IVPB ONE (17:00)
[2016-10-26 19:21] VITALS: BP 148/68
--- NOTE | 2016-10-26 20:47 | DS ---
DISCHARGE SUMMARY: DATE OF ADMISSION: 10/22/16 DATE OF DISCHARGE: 10/26/16 DISCHARGE DIAGNOSES: 1. 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 2. Dose-escalated EPOCH-R chemotherapy. HOSPITAL COURSE: He came in on Saturday to start cycle 2 of chemotherapy. He has done well throughout the week without significant side effects. We gave him trazodone for sleeping while he is on the prednisone that worked well. He has had bowel movement most days. He continues to have back pain but stable. He has had some progressive cytopenias during the week including neutropenia and anemia. He is going to receive 2 units of packed red blood cells today and then be discharged to home. He has Neupogen that arrived yesterday, he will take subcu daily for 10 days and will follow up coming next week. DISCHARGE MEDICATIONS: 1. Allopurinol 300 mg p.o. daily. 2. Colchicine 0.6 mg q.12 p.r.n. gout. 3. Lisinopril 5 mg p.o. daily. 4. Miracle Mouthwash 5 mL q.6 p.r.n. for mouth sores. 5. Morphine sulfate 15 mg b.i.d. 6. Omeprazole capsule 20 mg daily. 7. Ondansetron 4 mg q.4 p.r.n. nausea. 8. Prochlorperazine 10 mg p.o. q.6 p.r.n. for nausea. 9. Senna 8.6 daily p.r.n. constipation. 10. Tylenol 650 q.6 p.r.n. pain. 11. Filgrastim 480 mcg subcu daily for 10 days. 12. MiraLAX 17 g p.r.n. constipation. 13. Percocet 5/325 q.4 p.r.n. up to 4 a day. FOLLOWUP: Will be this coming Saturday. Call for fevers, chills, nausea, mouth sores, or any other concerns. [id number]/[facility] #: [id number] [facility]
== END 2016-10-26 20:44 | disposition home or self-care (01) | DRG 847 ==
LOC: MED 16:35
PROVIDERS: ADMIT Internal Medicine Hematology & Oncology; ATTEND Internal Medicine Hematology & Oncology
PROC: 3E03305 Introduction of Other Antineoplastic into Peripheral Vein, Percutaneous Approach (ICD-10-PCS; principal; 2016-10-22)
PROC: 30233N1 Transfusion of Nonautologous Red Blood Cells into Peripheral Vein, Percutaneous Approach (ICD-10-PCS; 2016-10-26)
DX: Z51.11 Encounter for antineoplastic chemotherapy (principal); C83.30 Diffuse large B-cell lymphoma, unspecified site; D70.9 Neutropenia, unspecified; D64.81 Anemia due to antineoplastic chemotherapy; M10.9 Gout, unspecified; Z87.891 Personal history of nicotine dependence; D63.0 Anemia in neoplastic disease
CPT/HCPCS: 36415; 36569; 80053; 82607; 82728; 82945; 83540; 83550; 84157; 85025; 86850; 86900; 86901; 86922; 88112; 88184; 88185; 88187; 88188; 89051; 99223; 99232; 99239; A9270-GY; C1751; J1200; J1453; J1650; J1720; J2469; J7512; J9000; J9070; J9181; J9260; J9310; J9370; P9016

== ENCOUNTER → 2016-11-12 06:07 | Day surgery (SDC) | payer OTHER ==
[~2016-11-12 06:07] MED LIST changes: -Acetaminophen TAB* 325 MG PO PRN; +Buffered Lidocaine 1% SYR 3ML* 3 ML/SYR SYRINGE INTRADERM ONE; +Famotidine IV* 10 MG/ML 2 ML (20 mg) IV ONE; +Famotidine IV* 10 MG/ML 2 ML (20 mg) ONE; +Lidocaine 1% INJ* 10 MG/ML 30 ML SDV ONE; +Midazolam* 1 MG/ML 2 ML VIAL (2 MG) ONE; +Midazolam* 1 MG/ML 5 ML VIAL (5 MG) ONE; +Ondansetron INJ* 2 MG/ML VIAL ONE; -Ondansetron TAB* 4 MG PO PRN; +PROCHLORPERAZINE INJ 5 MG/ML 2 ML VIAL IV PRN; +Phenylephrine IV* 40 MCG/ML 10 ML SYRINGE ONE; -Prochlorperazine TAB* 10 MG PO PRN; -Senna TAB PO PRN; +ceFAZolin 2 GM PREMIX (*) 2 GM/50 ML BAG IVPB ONE; +fentaNYL* 50 MCG/ML 2 ML VIAL (100 MCG VIAL) IV PRN; +fentaNYL* 50 MCG/ML 2 ML VIAL (100 MCG VIAL) ONE; -traZODone TAB* 50 MG TAB PO PRN
--- NOTE | 2016-11-12 08:57 | SURGPN ---
Brief Operative Note - Surgery Procedures: Procedures OPERATIVE REPORT PRE-OP: Lymphoma POST-OP: Same PROCEDURE: Insertion of left chest 8F PowerPort SURGEON: MD Jenniffer ANESTHESIA:Local with MAC with Dr. Metzger ASST: none IVF: min EBL:min SPECIMEN:none DRAIN: none WOUND CLASS: One COMPLICATIONS: none TO PACU
[2016-11-12 09:25] VITALS: BP 113/71
--- NOTE | 2016-11-12 09:26 | RAD ---
INDICATION: Port insertion COMPARISON: Chest x-ray August 25, 2016 TECHNIQUE: An AP portable view obtained at 0855 hours is submitted. FINDINGS: Bones/Soft Tissues: There are no acute bony findings. There is a left-sided Tluprh-a-Asuw catheter terminating in the superior vena cava Cardiomediastinal: The cardiomediastinal silhouette is normal. Lungs: There are no infiltrates. No pneumothorax. Pleura: There are no pleural effusions. Other: None IMPRESSION: LEFT [id number] CATHETER IN EXPECTED POSITION. NO PNEUMOTHORAX.
--- NOTE | 2016-11-12 11:31 | RAD ---
CPT II Codes: 6045F INDICATION: Central line placement, PowerPort Fluoroscopic services provided for referring physician. 26.1 seconds of fluoroscopy time was used. 2 spot image demonstrates placement of a PowerPort with the tip in the superior vena cava. IMPRESSION: Fluoroscopic services provided for referring physician.
--- NOTE | 2016-11-13 03:33 | OP ---
DATE OF OPERATION: 11/12/16 [facility] DATE OF : 58 SURGEON: Jaime Abad MD AIR INTERCEPT CONTROLLER: None. ANESTHESIOLOGIST: Alexandrea Metzger MD ANESTHESIA: Local with monitored anesthesia care. PRE-OP DIAGNOSIS: Lymphoma. POST-OP DIAGNOSIS: Lymphoma. OPERATIVE PROCEDURE: Insertion of a left chest wall 8-English percutaneously placed PowerPort. ESTIMATED BLOOD LOSS: Minimal. WOUND CLASSIFICATION: I. COMPLICATIONS: None. DRAINS: None. DESCRIPTION OF PROCEDURE: Written and informed consent was obtained. The left chest was marked with indelible ink. Preoperative antibiotics were administered. The patient was taken to the operating room, placed in the supine position. The left and right chest and neck were prepped and draped in the usual sterile fashion. Time-out verification was completed. The patient was placed in the Trendelenburg position and 1% lidocaine with epinephrine was infiltrated in the left mid infraclavicular area. An 18-gauge Cook needle was used to puncture the subclavian vein on the first pass with good blood return. The guidewire was inserted without difficulty and confirmed to be in the superior vena cava by fluoroscopy. Additional lidocaine was infiltrated on the left chest wall and a transverse incision was made several centimeters inferior to the puncture site. A subcutaneous pocket was made inferior to this incision, large enough to fit the port. Next, the catheter was tunneled from the puncture site to the port site and then subsequently using the sheath peel-away system, the catheter was placed into the central venous system at the junction between the superior vena cava and the right atrium. The catheter was cut to the appropriate length and then placed on the port in the usual fashion, which was then tucked into the pocket and sutured into position using two separate 2-0 Prolene sutures. The catheter appeared to be in good position with the correct length and location by fluoroscopy. The catheter flushed well and withdrew blood and subsequently hemostasis was assured. The incisions were closed with 3-0 and 4-0 Polysorb suture. The right angle Schmidt needle was then used to access the port and flushed with heparin solution. The patient was to use the port immediately for chemotherapy and appropriate occlusive dressings were applied over the needle in system. The patient tolerated the procedure well and was taken to the recovery room in stable condition. Chest x-ray showed the catheter to be in good position without evidence of pneumothorax. CC: [facility]; Dr. Ayers* [id number]/[facility] #: [id number] MTDD
== END | disposition home or self-care (01) ==
LOC: OR 06:07
PROVIDERS: ATTEND Surgery
DX: C83.30 Diffuse large B-cell lymphoma, unspecified site (principal); I10 Essential (primary) hypertension; Z87.891 Personal history of nicotine dependence; D64.9 Anemia, unspecified
CPT/HCPCS: 71010; 76000; C1788; J0690; J1200; J1453; J1642; J1720; J2250; J2405; J2469; J3010; J9260; J9310

== ENCOUNTER 2016-11-12 06:55 | Inpatient (IN) | payer OTHER ==
[2016-11-12] MEDS ORDERED: Prochlorperazine TAB* 10 MG PO PRN (12:30)
[2016-11-12] MEDS ORDERED: Senna TAB PO PRN (12:30)
[2016-11-12] MEDS ORDERED: [UNRECOGNIZED DRUG - OTHER] PO PRN (12:30)
[2016-11-12] MEDS ORDERED: NYST PO PRN (12:30)
[2016-11-12] MEDS ORDERED: Colchicine* 0.6 MG TAB PO PRN (12:30)
[2016-11-12] MEDS ORDERED: Acetaminophen TAB* 325 MG PO PRN (12:30)
[2016-11-12] MEDS: Heparin VIAL(*) 5000 UNITS/ML VIAL (FIVE THOUSAND) SUBCUT SCH ×2 (16:07→21:37)
[2016-11-12] MEDS: ETOPOSIDE IVPB SCH (16:29)
[2016-11-12] MEDS: DOXORUBICIN IVPB SCH (16:29)
[2016-11-12] MEDS: VINCRISTINE IVPB SCH (16:29)
[2016-11-12] MEDS: [UNRECOGNIZED DRUG - OTHER] IVPB SCH (16:29)
[2016-11-12] MEDS: Acetaminophen TAB* 325 MG PO ONE ×2 (16:41→17:48)
[2016-11-12] MEDS ORDERED: diPHENhydraMINE PO* 25 MG PO ONE (17:00)
[2016-11-12] MEDS ORDERED: traZODone TAB* 50 MG TAB PO PRN (21:00)
[2016-11-12] MEDS: Morphine TAB Extended Release (*) 15 MG TAB.ER PO SCH (21:36)
[2016-11-12] MEDS: predniSONE TAB* 50 MG PO SCH (21:37)
[2016-11-13] MEDS: Heparin VIAL(*) 5000 UNITS/ML VIAL (FIVE THOUSAND) SUBCUT SCH ×3 (06:00→21:44)
[2016-11-13 08:53] LABS: Hematocrit 29 % (42-52); Hemoglobin 9.5 g/dl (14.0-18.0); Mean Corpuscular HGB Conc 33 g/dl (31-36); Mean Corpuscular Hemoglobin 30 pg (27-31); Mean Corpuscular Volume 89 fL (80-94); Mean Platelet Volume 9 um3 (7.4-10.4); Red Blood Count 3.22 10^6/ul (4.0-5.4); Red Cell Distribution Width 20 % (10.5-15); White Blood Count 5.9 10^3/ul (3.5-10.8)
[2016-11-13] MEDS ORDERED: OMEPRAZOLE 10 MG PO SCH (09:00)
[2016-11-13 09:03] LABS: Albumin 3.5 g/dL (3.2-5.2); BUN/Creatinine Ratio 24.5 (8-20); Calcium 9.3 mg/dL (8.6-10.3); EGFR African American 225.6 (>60); EGFR Non-African American 175.4 (>60); Globulin 2.5 g/dL (2-4); Potassium 4.1 mmol/L (3.5-5.0); Total Bilirubin 0.9 mg/dL (0.2-1.0)
[2016-11-13] MEDS: Morphine TAB Extended Release (*) 15 MG TAB.ER PO SCH ×2 (09:43→21:26)
[2016-11-13] MEDS: predniSONE TAB* 50 MG PO SCH ×2 (09:45→21:25)
[2016-11-13] MEDS: Allopurinol TAB* 300 MG PO SCH (09:46)
[2016-11-13] MEDS: Lisinopril TAB* 5 MG PO SCH (09:46)
[2016-11-13] MEDS: Polyethylene Glycol 3350* 17 GM PACKET PO PRN (09:49)
--- NOTE | 2016-11-13 11:47 | PN ---
Progress Note - Progress Note SOAP: Subjective: []Doing well and feels better after blood transfusion. Tolerating chemotherapy without clear side effects, no nausea. Acetaminophen (Tylenol Tab*) 650 mg PO Q6H PRN PRN Reason: PAIN Allopurinol (Zyloprim Tab*) 300 mg PO DAILY [facility] Last Admin: 11/13/16 09:46 Dose: 300 mg Colchicine (Colcrys*) 0.6 mg PO Q12HR PRN PRN Reason: PAIN Heparin Sodium (Porcine) (Heparin Vial(*)) 5,000 units SUBCUT Q8HR [facility] Last Admin: 11/13/16 06:00 Dose: 5,000 units Etoposide 126 mg/ Doxorubicin HCl 25 mg/ Vincristine Sulfate 0.84 mg/ Sodium Chloride 519.64 mls @ 21.652 mls/hr IVPB DAILY@1630 [facility] Stop: 11/16/16 16:29 Last Admin: 11/12/16 16:29 Dose: 21.652 mls/hr Cyclophosphamide 1,890 mg/ (Sodium Chloride) 594.5 mls @ 792.667 mls/hr IVPB ONCE ONE Stop: 11/16/16 17:44 Lisinopril (Prinivil Tab*) 5 mg PO DAILY [facility] Last Admin: 11/13/16 09:46 Dose: 5 mg Morphine Sulfate (Ms Contin(*)) 15 mg PO BID [facility] Last Admin: 11/13/16 09:43 Dose: 15 mg Non-Formulary Medication (Miracle Mw-Jerrod/Nyst/Tetrac*) 5 ml PO Q6HR PRN PRN Reason: MOUTH SORES Non-Formulary Medication (Omeprazole Cap*) 10 mg PO DAILY [facility] Last Admin: 11/13/16 09:49 Dose: Not Given Polyethylene Glycol/Electrolytes (Miralax*) 17 gm PO DAILY PRN PRN Reason: CONSTIPATION Last Admin: 11/13/16 09:49 Dose: 17 gm Prednisone (Deltasone Tab*) 125 mg PO BID [facility] Stop: 11/16/16 23:59 Last Admin: 11/13/16 09:45 Dose: 125 mg Prochlorperazine (Compazine Tab*) 10 mg PO Q6H PRN PRN Reason: NAUSEA Senna (Senokot Tab*) 1 tab PO DAILY PRN PRN Reason: CONSTIPATION Trazodone HCl (Desyrel Tab*) 25 mg PO BEDTIME PRN PRN Reason: SLEEP Objective: [] Vital Signs Temp Pulse Resp BP Pulse Ox 97.9 F 62 16 123/74 95 11/13/16 08:23 11/13/16 08:23 11/13/16 09:43 11/13/16 08:23 11/13/16 08:23 HEENT - Mucosa moist CTA RRR S12 +BS, NT and ND Port looks fine No C/c/e Assessment: []56 year old day 2 cycle 2 chemotherapy for DLBCL, c-myc mutated. Plan: []1. Tolerating well, no change in supportive medication. 2. Will check iron and B12 after discharge for anemia. 3. Will need day 15 CBC, possible dose escalation on cycle 4 4. PET and repeat bone marrow biopsy after discharge
[2016-11-13] MEDS: ETOPOSIDE IVPB SCH (16:09)
[2016-11-13] MEDS: [UNRECOGNIZED DRUG - OTHER] IVPB SCH (16:09)
[2016-11-13] MEDS: DOXORUBICIN IVPB SCH (16:09)
[2016-11-13] MEDS: VINCRISTINE IVPB SCH (16:09)
[2016-11-14] MEDS: Heparin VIAL(*) 5000 UNITS/ML VIAL (FIVE THOUSAND) SUBCUT SCH ×3 (06:04→21:44)
[2016-11-14] MEDS: Omeprazole CAP* 20 MG PO SCH (09:23)
[2016-11-14] MEDS: predniSONE TAB* 50 MG PO SCH ×2 (09:23→21:44)
[2016-11-14] MEDS: Lisinopril TAB* 5 MG PO SCH (09:23)
[2016-11-14] MEDS: Polyethylene Glycol 3350* 17 GM PACKET PO PRN (09:23)
[2016-11-14] MEDS: Morphine TAB Extended Release (*) 15 MG TAB.ER PO SCH ×2 (09:24→21:44)
[2016-11-14] MEDS: Allopurinol TAB* 300 MG PO SCH (09:24)
--- NOTE | 2016-11-14 09:53 | PN ---
Progress Note - Progress Note SOAP: Subjective: feeling quite well. no nausea or vomiting. Objective: Vital Signs Temp Pulse Resp BP Pulse Ox 97.9 F 60 16 126/67 96 11/14/16 07:34 11/14/16 07:34 11/14/16 09:24 11/14/16 07:34 11/14/16 07:34 perr eomi op moist CTA bl s1 s2 nl soft nt +bs no le edema A+O x 3, nonfocal neuro exam port clean Acetaminophen (Tylenol Tab*) 650 mg PO Q6H PRN PRN Reason: PAIN Allopurinol (Zyloprim Tab*) 300 mg PO DAILY [facility] Last Admin: 11/14/16 09:24 Dose: 300 mg Colchicine (Colcrys*) 0.6 mg PO Q12HR PRN PRN Reason: PAIN Heparin Sodium (Porcine) (Heparin Vial(*)) 5,000 units SUBCUT Q8HR [facility] Last Admin: 11/14/16 06:04 Dose: 5,000 units Etoposide 126 mg/ Doxorubicin HCl 25 mg/ Vincristine Sulfate 0.84 mg/ Sodium Chloride 519.64 mls @ 21.652 mls/hr IVPB DAILY@1630 [facility] Stop: 11/16/16 16:29 Last Admin: 11/13/16 16:09 Dose: 21.652 mls/hr Cyclophosphamide 1,890 mg/ (Sodium Chloride) 594.5 mls @ 792.667 mls/hr IVPB ONCE ONE Stop: 11/16/16 17:44 Lisinopril (Prinivil Tab*) 5 mg PO DAILY [facility] Last Admin: 11/14/16 09:23 Dose: 5 mg Morphine Sulfate (Ms Contin(*)) 15 mg PO BID [facility] Last Admin: 11/14/16 09:24 Dose: 15 mg Non-Formulary Medication (Miracle Mw-Jerrod/Nyst/Tetrac*) 5 ml PO Q6HR PRN PRN Reason: MOUTH SORES Omeprazole (Prilosec Cap*) 20 mg PO 0900 [facility] Last Admin: 11/14/16 09:23 Dose: 20 mg Polyethylene Glycol/Electrolytes (Miralax*) 17 gm PO DAILY PRN PRN Reason: CONSTIPATION Last Admin: 11/14/16 09:23 Dose: 17 gm Prednisone (Deltasone Tab*) 125 mg PO BID [facility] Stop: 11/16/16 23:59 Last Admin: 11/14/16 09:23 Dose: 125 mg Prochlorperazine (Compazine Tab*) 10 mg PO Q6H PRN PRN Reason: NAUSEA Senna (Senokot Tab*) 1 tab PO DAILY PRN PRN Reason: CONSTIPATION Last Admin: 11/13/16 21:25 Dose: 1 tab Trazodone HCl (Desyrel Tab*) 25 mg PO BEDTIME PRN PRN Reason: SLEEP Last Admin: 11/13/16 21:26 Dose: 25 mg Assessment: 56 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 Plan: -cont inpatient chemo -plan for PET and marrow as outpatient for response to therapy -plan for neulasta support -heparin sc dvt prophylaxis
[2016-11-14 10:35] LABS: Hematocrit 26 % (42-52); Hemoglobin 8.6 g/dl (14.0-18.0); Mean Corpuscular HGB Conc 33 g/dl (31-36); Mean Corpuscular Hemoglobin 29 pg (27-31); Mean Corpuscular Volume 89 fL (80-94); Mean Platelet Volume 8 um3 (7.4-10.4); Red Blood Count 2.95 10^6/ul (4.0-5.4); Red Cell Distribution Width 20 % (10.5-15); White Blood Count 4.9 10^3/ul (3.5-10.8)
[2016-11-14 10:48] LABS: Albumin 3.5 g/dL (3.2-5.2); BUN/Creatinine Ratio 34.8 (8-20); Calcium 8.7 mg/dL (8.6-10.3); EGFR African American 242.7 (>60); EGFR Non-African American 188.7 (>60); Total Bilirubin 0.7 mg/dL (0.2-1.0); Total Protein 5.5 g/dL (6.4-8.9)
[2016-11-14] MEDS: VINCRISTINE IVPB SCH (17:05)
[2016-11-14] MEDS: ETOPOSIDE IVPB SCH (17:05)
[2016-11-14] MEDS: DOXORUBICIN IVPB SCH (17:05)
[2016-11-14] MEDS: [UNRECOGNIZED DRUG - OTHER] IVPB SCH (17:05)
[2016-11-15] MEDS: Heparin VIAL(*) 5000 UNITS/ML VIAL (FIVE THOUSAND) SUBCUT SCH ×3 (06:06→21:16)
[2016-11-15] MEDS: Allopurinol TAB* 300 MG PO SCH (08:36)
[2016-11-15] MEDS: predniSONE TAB* 50 MG PO SCH ×2 (08:37→21:14)
[2016-11-15] MEDS: Morphine TAB Extended Release (*) 15 MG TAB.ER PO SCH ×2 (08:37→21:15)
[2016-11-15] MEDS: Lisinopril TAB* 5 MG PO SCH (08:37)
[2016-11-15] MEDS: Omeprazole CAP* 20 MG PO SCH (08:38)
--- NOTE | 2016-11-15 08:39 | PN ---
Progress Note - Progress Note SOAP: Subjective: feels really good this am. 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 Objective: [] Vital Signs Temp Pulse Resp BP Pulse Ox 97.6 F 53 16 142/70 97 11/15/16 00:00 11/15/16 00:00 11/15/16 00:00 11/15/16 00:00 11/15/16 00:00 sitting up in nad perr eomi op moist cta bl s1 s2 nl soft nt no le edema A+O x 3, grossly nonfocal clean port Laboratory Results - last 24 hr 11/14/16 11/14/16 08:06 08:06 WBC 4.9 RBC 2.95 L Hgb 8.6 L Hct 26 L MCV 89 MCH 29 MCHC 33 RDW 20 H Plt Count 146 L MPV 8 Neut % (Auto) 91.3 H Lymph % (Auto) 4.3 L [place] % (Auto) 4.0 Eos % (Auto) 0 Baso % (Auto) 0.4 Absolute Neuts (auto) 4.5 Absolute Lymphs (auto) 0.2 L Absolute Monos (auto) 0.2 Absolute Eos (auto) 0 Absolute Basos (auto) 0 Absolute Nucleated RBC 0.01 Nucleated RBC % 0.2 Sodium 138 Potassium 4.0 Chloride 106 Carbon Dioxide 26 Anion Gap 6 BUN 16 Creatinine 0.46 L Est GFR ( Amer) 242.7 Est GFR (Non-Af Amer) 188.7 BUN/Creatinine Ratio 34.8 H Glucose 143 H Calcium 8.7 Total Bilirubin 0.70 AST 28 ALT 32 Alkaline Phosphatase 102 Total Protein 5.5 L Albumin 3.5 Globulin 2.0 Albumin/Globulin Ratio 1.8 Acetaminophen (Tylenol Tab*) 650 mg PO Q6H PRN PRN Reason: PAIN Allopurinol (Zyloprim Tab*) 300 mg PO DAILY [facility] Last Admin: 11/14/16 09:24 Dose: 300 mg Colchicine (Colcrys*) 0.6 mg PO Q12HR PRN PRN Reason: PAIN Heparin Sodium (Porcine) (Heparin Vial(*)) 5,000 units SUBCUT Q8HR [facility] Last Admin: 11/15/16 06:06 Dose: 5,000 units Heparin Sodium (Porcine) (Heparin Flush Port (Ivad)) 5 ml FLUSH DAILY [facility] PRN Reason: Protocol Last Admin: 11/14/16 21:45 Dose: Not Given Etoposide 126 mg/ Doxorubicin HCl 25 mg/ Vincristine Sulfate 0.84 mg/ Sodium Chloride 519.64 mls @ 21.652 mls/hr IVPB DAILY@1630 [facility] Stop: 11/16/16 16:29 Last Admin: 11/14/16 17:05 Dose: 21.652 mls/hr Cyclophosphamide 1,890 mg/ (Sodium Chloride) 594.5 mls @ 792.667 mls/hr IVPB ONCE ONE Stop: 11/16/16 17:44 Lisinopril (Prinivil Tab*) 5 mg PO DAILY [facility] Last Admin: 11/14/16 09:23 Dose: 5 mg Morphine Sulfate (Ms Contin(*)) 15 mg PO BID [facility] Last Admin: 11/14/16 21:44 Dose: 15 mg Non-Formulary Medication (Miracle Mw-Jerrod/Nyst/Tetrac*) 5 ml PO Q6HR PRN PRN Reason: MOUTH SORES Omeprazole (Prilosec Cap*) 20 mg PO 0900 [facility] Last Admin: 11/14/16 09:23 Dose: 20 mg Polyethylene Glycol/Electrolytes (Miralax*) 17 gm PO DAILY PRN PRN Reason: CONSTIPATION Last Admin: 11/14/16 09:23 Dose: 17 gm Prednisone (Deltasone Tab*) 125 mg PO BID [facility] Stop: 11/16/16 23:59 Last Admin: 11/14/16 21:44 Dose: 125 mg Prochlorperazine (Compazine Tab*) 10 mg PO Q6H PRN PRN Reason: NAUSEA Senna (Senokot Tab*) 1 tab PO DAILY PRN PRN Reason: CONSTIPATION Last Admin: 11/13/16 21:25 Dose: 1 tab Trazodone HCl (Desyrel Tab*) 25 mg PO BEDTIME PRN PRN Reason: SLEEP Last Admin: 11/13/16 21:26 Dose: 25 mg Assessment: 56 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 Plan: -cont inpatient chemo, dc tomorrow if uncomplicated -plan for PET and marrow as outpatient for response to therapy -plan for neulasta support -heparin sc dvt prophylaxis -cont allopurinol for gout prophylaxis
[2016-11-15 09:44] LABS: Hematocrit 27 % (42-52); Hemoglobin 8.9 g/dl (14.0-18.0); Mean Corpuscular HGB Conc 33 g/dl (31-36); Mean Corpuscular Hemoglobin 29 pg (27-31); Mean Corpuscular Volume 88 fL (80-94); Mean Platelet Volume 8 um3 (7.4-10.4); Red Blood Count 3.05 10^6/ul (4.0-5.4); Red Cell Distribution Width 20 % (10.5-15); White Blood Count 3.4 10^3/ul (3.5-10.8)
[2016-11-15 09:49] LABS: Comments Flag Yes
[2016-11-15 09:55] LABS: Albumin 3.5 g/dL (3.2-5.2); BUN/Creatinine Ratio 39.1 (8-20); Calcium 8.7 mg/dL (8.6-10.3); EGFR African American 242.7 (>60); EGFR Non-African American 188.7 (>60); Magnesium 2.4 mg/dL (1.9-2.7); Potassium 3.6 mmol/L (3.5-5.0); Total Protein 5.5 g/dL (6.4-8.9)
[2016-11-15] MEDS: VINCRISTINE IVPB SCH (17:12)
[2016-11-15] MEDS: ETOPOSIDE IVPB SCH (17:12)
[2016-11-15] MEDS: [UNRECOGNIZED DRUG - OTHER] IVPB SCH (17:12)
[2016-11-15] MEDS: DOXORUBICIN IVPB SCH (17:12)
[2016-11-16] MEDS: Heparin VIAL(*) 5000 UNITS/ML VIAL (FIVE THOUSAND) SUBCUT SCH ×2 (07:07→14:39)
[2016-11-16 08:12] VITALS: BP 127/62
[2016-11-16] MEDS: Morphine TAB Extended Release (*) 15 MG TAB.ER PO SCH (08:17)
[2016-11-16] MEDS: predniSONE TAB* 50 MG PO SCH (08:18)
[2016-11-16] MEDS: Allopurinol TAB* 300 MG PO SCH (08:19)
[2016-11-16] MEDS: Lisinopril TAB* 5 MG PO SCH (08:20)
[2016-11-16] MEDS: Omeprazole CAP* 20 MG PO SCH (08:20)
--- NOTE | 2016-11-16 14:26 | DS ---
DISCHARGE SUMMARY: DATE OF ADMISSION: 11/12/16 DATE OF DISCHARGE: 11/16/16 PRINCIPAL DIAGNOSES: 1. Diffuse large B-cell lymphoma, in for inpatient chemotherapy. 2. History of gout. 3. Anemia, both secondary to disease process and chemotherapy induction. 4. Leukopenia. 5. Thrombocytopenia, chemotherapy induced. DISCHARGE MEDICATIONS: As per the discharge summary and briefly include his home medications which are: 1. Allopurinol 300 mg daily. 2. Colchicine 0.6 mg every 12 hours as needed p.r.n. for gout. 3. Lisinopril 5 mg daily. 4. Morphine sulfate extended release 15 mg twice daily. 5. Miracle mouthwash 5 mL p.o. q. 6h. p.r.n. mouth sores. 6. Omeprazole 20 mg daily. 7. MiraLAX 17 g daily p.r.n. constipation. 8. He will finish his last dose of prednisone 125 mg p.o. b.i.d. today. 9. Compazine 10 mg p.o. q. 6h. p.r.n. nausea. 10. Senokot one tab daily p.r.n. constipation. He will start his Neupogen shots approximately 24 hours after the chemotherapy is complete and the patient has his own supply at home already. He will follow up in the office next week with myself for postchemotherapy and hospitalization followup. We will subsequently recheck his blood counts as he did require 2 units of packed red blood cells during his hospital stay. HOSPITAL COURSE: Briefly, this is a 56-year-old male with DLBCL with significant "bone marrow involvement," he is status post cycle now 3 of dose- adjusted R-EPOCH and tolerated the infusion exceptionally well during his hospital stay. His vital signs remain afebrile and stable. He remains anemic with a hemoglobin of 8.9 on 11/15/16 and we will watch that carefully as he most likely will need additional transfusions. Again, he tolerated the chemotherapy exceptionally well. He denies any specific intractable nausea or vomiting. Bowels are working exceptionally well and he remains stable throughout the course of his chemotherapy induction. ALON ROMAN [id number]/[facility] #: [id number] [facility]
[2016-11-16] MEDS ORDERED: NS 0.9% IVPB ONE (17:00)
[2016-11-16] MEDS ORDERED: CYCLOPHOSPHAMIDE IVPB ONE (17:00)
== END 2016-11-16 17:55 | disposition home or self-care (01) | DRG 847 ==
LOC: MED 15:30
PROVIDERS: ADMIT Internal Medicine Hematology & Oncology; ATTEND Internal Medicine Hematology & Oncology
DX: Z51.11 Encounter for antineoplastic chemotherapy (principal); C83.30 Diffuse large B-cell lymphoma, unspecified site; D69.59 Other secondary thrombocytopenia; M10.9 Gout, unspecified; D63.0 Anemia in neoplastic disease; D64.81 Anemia due to antineoplastic chemotherapy; D72.819 Decreased white blood cell count, unspecified; T45.1X5A Adverse effect of antineoplastic and immunosuppressive drugs, initial encounter; Z87.891 Personal history of nicotine dependence
CPT/HCPCS: 36415; 36591; 71010; 76000; 80053; 83615; 83735; 85025; 85027; 86850; 86900; 86901; 86922; 89051; 96367; 96413; 96415; 96450; 99213; 99222; 99232; 99238; A9270-GY; C1788; G0463; J0690; J1200; J1453; J1642; J1644; J1720; J2001; J2250; J2405; J2469; J3010; J3490; J7512; J9000; J9070; J9181; J9260; J9310; J9370; P9016

== ENCOUNTER 2016-12-03 14:07 | Inpatient (IN) | payer OTHER ==
[2016-12-03] MEDS ORDERED: Colchicine* 0.6 MG TAB PO PRN (15:41)
[2016-12-03] MEDS ORDERED: Acetaminophen TAB* 325 MG PO PRN (15:41)
[2016-12-03] MEDS: DOXORUBICIN IVPB SCH (16:00)
[2016-12-03] MEDS: ETOPOSIDE IVPB SCH (16:00)
[2016-12-03] MEDS: [UNRECOGNIZED DRUG - OTHER] IVPB SCH (16:00)
[2016-12-03] MEDS: VINCRISTINE IVPB SCH (16:00)
[2016-12-03] MEDS ORDERED: Miracle MW-Ben/Nyst/Tetrac SWISH SPIT PRN (16:34)
[2016-12-03] MEDS ORDERED: Polyethylene Glycol 3350* 17 GM PACKET PO PRN (16:34)
[2016-12-03] MEDS ORDERED: Prochlorperazine TAB* 10 MG PO PRN (16:34)
[2016-12-03] MEDS ORDERED: oxyCODONE/Acetamin 5/325 MG* TAB PO PRN (16:34)
[2016-12-03] MEDS ORDERED: Ondansetron TAB* 4 MG PO PRN (16:34)
[2016-12-03] MEDS ORDERED: Senna TAB PO PRN (16:34)
[2016-12-03] MEDS: predniSONE TAB* 50 MG PO SCH (20:34)
[2016-12-03] MEDS: Morphine TAB Extended Release (*) 15 MG TAB.ER PO SCH (20:34)
[2016-12-03] MEDS: traZODone TAB* 50 MG TAB PO SCH (20:36)
--- NOTE | 2016-12-04 04:21 | HP ---
HISTORY AND PHYSICAL: DATE OF ADMISSION: 12/03/16 REASON FOR ADMISSION: Fourth cycle of dose adjusted R-EPOCH. HISTORY OF PRESENT ILLNESS: Mr. Lamar is a 56-year-old male who in the summer of 2015 developed back pain. This did not respond to initial over-the- counter medications, including nonsteroidal antiinflammatories. He developed increasing pain and after initial conservative therapy, an MRI scan of the spine revealed diffuse enhancement with marrow replacement throughout the spine. A CT scan in August of 2016 did not reveal any suspicious lesions in the lung or liver. No significant adenopathy. The liver and spleen were both mildly enlarged. The patient underwent a bone marrow aspirate and biopsy which revealed diffuse large B- cell lymphoma with marrow fibrosis and absent . It was BCL6 and BCL2 positive along with being C-MYC positive. It was CD20 positive, CD10 positive, CD5 negative, Ki-67 70%. He had an elevated LDH. The initial MRI scan was diffusely abnormal on 09/14/16 with increased metabolic activity throughout the axial appendicular skeleton. Multiple areas were involved. There was no evidence for any extraosseous abnormal hypermetabolic foci. To this point, the patient has been treated with 3 cycles of dose adjusted R- EPOCH chemotherapy on October 01, October 24, and November 12. He has tolerated all 3 cycles of chemotherapy well without any significant nausea or vomiting. He has also had significant constipation related presumably to the vincristine chemotherapy. However, despite the course of chemotherapy, he reports his back pain has not improved very much at all. Continues to be on significant amounts of narcotics. He has not developed any significant neuropathy with just a little bit of tingling and numbness in his left fifth finger but not elsewhere. Restaging studies have included a recent PET scan on 11/29/16 with mild diffuse scattered increased osseous activity most prominent in the pelvis and proximal femurs. The activity is in much smaller area than before and now the SUV is approximately 5 down from 15 on the previous initial PET scan. Bone marrow aspirate and biopsy reveals no evidence for lymphoma, the biopsy is quite fibrotic and has only 10% cellularity. Despite this, he has adequate blood counts. PAST MEDICAL HISTORY: Gout. PAST SURGICAL HISTORY: No previous surgeries. MEDICATIONS: At the present time include: 1. Allopurinol 300 mg daily. 2. Colchicine 0.6 mg p.r.n. 3. Lisinopril 5 mg daily. 4. Miracle mouth wash 5 mL q.i.d. p.r.n. 5. MiraLAX p.r.n. 6. Morphine sulfate extended release 15 mg b.i.d. 7. Oxycodone with APAP 5/325 q.6 hours p.r.n. pain. 8. Compazine 10 mg q. 6h. p.r.n. nausea. 9. Zofran 4 mg q.4h. p.r.n. nausea. 10. Senokot one to two tablets daily. 11. Omeprazole 20 mg daily. ALLERGIES: None. FAMILY HISTORY: Unremarkable. SOCIAL HISTORY: The patient is , lives with his . 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 He is a former smoker, 40 pack years, but currently does not smoke and has no significant alcohol history. REVIEW OF SYSTEMS: Significant weight loss initially down approximately 37 pounds, but stable recently. No significant shortness of breath, chest pain, or palpitations. No significant changes in bladder habits. Bowels are constipated related to narcotics and to vincristine. No nausea or vomiting. No significant pain outside of chronic low back pain. No significant neurologic complaints. Review of systems is otherwise negative. LABORATORY STUDIES: Adequate for current chemotherapy. PHYSICAL EXAMINATION GENERAL: A 56-year-old male in no acute distress. VITAL SIGNS: Blood pressure 102/69, pulse 86, afebrile. HEENT: PERRL. EOMI. No erythema or exudates. No palpable cervical, supraclavicular or axillary adenopathy. LUNGS: Clear. HEART: Regular rate and rhythm without murmurs, rubs, or gallops. ABDOMEN: Soft and nontender without masses or organomegaly. EXTREMITIES: No clubbing, cyanosis, or edema. BACK: No CVA or spinal tenderness. 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 Restaging after 3 cycles revealed a negative bone marrow biopsy and a much improved PET scan. He is being admitted at this time for cycle 4 with dose escalation of dose-adjusted R-EPOCH. Etoposide will be given at 72 mg/m.sq. daily, days 1 through 4; doxorubicin 14.4 mg/m.sq. daily, days 1 through 4; vincristine 0.4 mg/m.sq. daily, days 1 through 4; Cytoxan 1080 mg/m.sq. IV on day 5; prednisone 60 mg/m.sq. orally b.i.d. on days 1 through 5; Neupogen will be given starting on day 6 for 10 days. The patient will be continued on intrathecal methotrexate which he has received with cycles 2 and 3. He will receive 15 mg of IT methotrexate along with 15 mg of hydrocodone on 12/04/16. He will have p.r.n. antiemetics, maintain his usual pain medications and other meds as needed. The patient will continue through cycle 6 of chemotherapy as long as he continues to tolerate it and then we will have restaging. [id number]/[facility] #: [id number] [facility]
[2016-12-04] MEDS: Omeprazole CAP* 20 MG PO SCH (09:12)
[2016-12-04] MEDS: Allopurinol TAB* 300 MG PO SCH (09:13)
[2016-12-04] MEDS: Morphine TAB Extended Release (*) 15 MG TAB.ER PO SCH ×2 (09:14→20:42)
[2016-12-04] MEDS: predniSONE TAB* 50 MG PO SCH ×2 (09:16→20:40)
[2016-12-04 09:41] LABS: Hematocrit 24 % (42-52); Mean Corpuscular HGB Conc 33 g/dl (31-36); Mean Corpuscular Hemoglobin 30 pg (27-31); Mean Corpuscular Volume 89 fL (80-94); Mean Platelet Volume 8 um3 (7.4-10.4); Red Cell Distribution Width 19 % (10.5-15); White Blood Count 1.3 10^3/ul (3.5-10.8)
[2016-12-04 09:43] LABS: Add Diff/Slide Review? Slide Review Added; Comments Flag Yes
[2016-12-04 09:53] LABS: Albumin 3.6 g/dL (3.2-5.2); Calcium 9.1 mg/dL (8.6-10.3); EGFR African American 236.7 (>60); EGFR Non-African American 184.1 (>60); Globulin 2.3 g/dL (2-4); Potassium 4.4 mmol/L (3.5-5.0); Total Bilirubin 0.6 mg/dL (0.2-1.0); Total Protein 5.9 g/dL (6.4-8.9)
[2016-12-04] MEDS ORDERED: METHOTREXATE INTRATHEC ONE (10:30)
[2016-12-04] MEDS ORDERED: NS 0.9% INTRATHEC ONE (10:30)
[2016-12-04] MEDS ORDERED: HYDROCORTISONE INTRATHEC ONE (10:30)
[2016-12-04 10:45] LABS: Hypochromasia 1+; Tear Drop Cells 2+
--- NOTE | 2016-12-04 11:38 | PM ---
DATE OF PROCEDURE: 12/04/2016 - ROOM #406 CHIEF COMPLAINT: Lymphoma. HISTORY: The patient is a 56-year-old male with a diagnosis of lymphoma who is scheduled today to receive intrathecal Methotrexate injection. I have been providing the placement of the spinal needle for the Methotrexate injection for AGNES. The patient is here today for the procedure. I had a chance to discuss with him the procedure, the risks, the benefits and alternatives to therapy. I had a chance to view his laboratory work and it did show a platelet count of 167 from 12/04/2016. After discussing the procedure with the patient, informed consent was obtained. PROCEDURE NOTE: The patient was placed in the sitting position. His back prepped and draped in the usual sterile fashion. Three cc of 1 percent Lidocaine were used for local anesthesia at the L3-4 interspace. A 20-gauge introducer was placed into the interspinous ligament and then a 25-gauge Pencan needle was introduced and directed toward the subarachnoid space. There was good free flow of cerebrospinal fluid. It was clear in nature and no paresthesias or blood was noted. I proceeded to collect 10 cc of cerebrospinal fluid which was discarded. Dr. Morales then proceeded to inject a total of 10 ml of Methotrexate intrathecally per their usual protocol. The needle and introducer were withdrawn. The patient tolerated the procedure well. He will continue to be followed by AGNES. [id number]/[facility] #: [id number] [facility]
[2016-12-04] MEDS: Lisinopril TAB* 5 MG PO SCH (13:26)
--- NOTE | 2016-12-04 13:36 | PN ---
Progress Note - Progress Note SOAP: Subjective: []Feeling very well. No complaints or concerns. No S/Es at this time. Last BM yesterday Medications: Acetaminophen (Tylenol Tab*) 650 mg PO Q6H PRN PRN Reason: PAIN Allopurinol (Zyloprim Tab*) 300 mg PO DAILY [facility] Last Admin: 12/04/16 09:13 Dose: 300 mg Colchicine (Colcrys*) 0.6 mg PO Q12H PRN PRN Reason: PAIN Heparin Sodium (Porcine) (Heparin Flush Port (Ivad)) 5 ml FLUSH DAILY [facility] PRN Reason: Protocol Etoposide 151 mg/ Doxorubicin HCl 30 mg/ Vincristine Sulfate 0.84 mg/ Sodium Chloride 523.39 mls @ 21.808 mls/hr IVPB DAILY@1530 [facility] Stop: 12/07/16 15:29 Last Admin: 12/03/16 16:00 Dose: 21.808 mls/hr Cyclophosphamide 2,000 mg/Cyclophosphamide 268 mg/Sodium Chloride 500 mls @ 500 mls/hr IVPB ONCE ONE Stop: 12/07/16 16:59 Lisinopril (Prinivil Tab*) 5 mg PO DAILY [facility] Last Admin: 12/04/16 13:26 Dose: Not Given Morphine Sulfate (Ms Contin(*)) 15 mg PO BID [facility] Last Admin: 12/04/16 09:14 Dose: 15 mg Multi-Ingredient Mouthwash/Gargle (Miracle Mw-Jerrod/Nyst/Tetrac*) 5 ml SWISH SPIT Q6H PRN PRN Reason: MOUTH SORES Omeprazole (Prilosec Cap*) 20 mg PO DAILY@0730 [facility] Last Admin: 12/04/16 09:12 Dose: 20 mg Ondansetron HCl (Zofran Tab*) 4 mg PO Q6H PRN PRN Reason: NAUSEA Oxycodone/Acetaminophen (Percocet 5/325 Tab*) 1 tab PO Q6H PRN PRN Reason: PAIN Polyethylene Glycol/Electrolytes (Miralax*) 17 gm PO DAILY PRN PRN Reason: CONSTIPATION Prednisone (Deltasone Tab*) 125 mg PO BID [facility] Last Admin: 12/04/16 09:16 Dose: 125 mg Prochlorperazine (Compazine Tab*) 10 mg PO Q6H PRN PRN Reason: NAUSEA Senna (Senokot Tab*) 1 tab PO DAILY PRN PRN Reason: CONSTIPATION Trazodone HCl (Desyrel Tab*) 50 mg PO BEDTIME [facility] Last Admin: 12/03/16 20:36 Dose: 50 mg Objective: [] Vital Signs Temp Pulse Resp BP Pulse Ox 97.3 F 66 16 98/61 95 12/04/16 07:18 12/04/16 07:18 12/04/16 11:14 12/04/16 07:18 12/04/16 07:18 A&Ox3, EOMI, [place], ambulates easily, neuro grossly non-focal HRR, S1S2, no murmur noted LS clear bilat. throughout +BS +PP=bilat., no edema Laboratory Results - last 24 hr 12/04/16 12/04/16 07:55 07:55 WBC 1.3 L RBC 2.70 L Hgb 8.0 L Hct 24 L MCV 89 MCH 30 MCHC 33 RDW 19 H Plt Count 167 MPV 8 Neut % (Auto) 79.6 Lymph % (Auto) 15.7 L [place] % (Auto) 3.0 Eos % (Auto) 0.1 Baso % (Auto) 1.6 Absolute Neuts (auto) 1.0 L Absolute Lymphs (auto) 0.2 L Absolute Monos (auto) 0 Absolute Eos (auto) 0 Absolute Basos (auto) 0 Absolute Nucleated RBC 0.01 Nucleated RBC % 0.7 Normal RBC Morphology Not Reportable Hypochromasia 1+ Tear Drop Cells 2+ Sodium 136 Potassium 4.4 Chloride 106 Carbon Dioxide 24 Anion Gap 6 BUN 8 Creatinine 0.47 L Est GFR ( Amer) 236.7 Est GFR (Non-Af Amer) 184.1 BUN/Creatinine Ratio 17.0 Glucose 165 H Calcium 9.1 Total Bilirubin 0.60 AST 8 L ALT 9 Alkaline Phosphatase 80 Total Protein 5.9 L Albumin 3.6 Globulin 2.3 Albumin/Globulin Ratio 1.6 Assessment: []56 yo with triple hit lymphoma on C4 daEPOCH tolerating very well. No changes today. Plan: []1. Chemo as ordered, enc.'d daily ambulation
[2016-12-04] MEDS: DOXORUBICIN IVPB SCH (16:04)
[2016-12-04] MEDS: VINCRISTINE IVPB SCH (16:04)
[2016-12-04] MEDS: ETOPOSIDE IVPB SCH (16:04)
[2016-12-04] MEDS: [UNRECOGNIZED DRUG - OTHER] IVPB SCH (16:04)
[2016-12-04] MEDS: traZODone TAB* 50 MG TAB PO SCH (20:42)
[2016-12-05] MEDS: Allopurinol TAB* 300 MG PO SCH (08:07)
[2016-12-05] MEDS: Lisinopril TAB* 5 MG PO SCH (08:07)
[2016-12-05] MEDS: Omeprazole CAP* 20 MG PO SCH (08:08)
[2016-12-05] MEDS: predniSONE TAB* 50 MG PO SCH ×2 (08:08→20:42)
[2016-12-05] MEDS: Morphine TAB Extended Release (*) 15 MG TAB.ER PO SCH ×2 (08:08→20:41)
[2016-12-05 10:58] LABS: Hematocrit 24 % (42-52); Hemoglobin 7.7 g/dl (14.0-18.0); Mean Corpuscular HGB Conc 33 g/dl (31-36); Mean Corpuscular Hemoglobin 30 pg (27-31); Mean Corpuscular Volume 91 fL (80-94); Mean Platelet Volume 8 um3 (7.4-10.4); Red Blood Count 2.61 10^6/ul (4.0-5.4); Red Cell Distribution Width 20 % (10.5-15); White Blood Count 3.5 10^3/ul (3.5-10.8)
[2016-12-05 11:07] LABS: BUN/Creatinine Ratio 25.5 (8-20); Calcium 9.2 mg/dL (8.6-10.3); EGFR African American 236.7 (>60); EGFR Non-African American 184.1 (>60)
[2016-12-05] MEDS ORDERED: Polyethylene Glycol 3350* 17 GM PACKET PO PRN (14:49)
--- NOTE | 2016-12-05 14:52 | PN ---
Progress Note - Progress Note SOAP: Subjective: []Feeling very well. No complaints today. Last BM 2 days ago, passing gas, no comfort, and took miralax last night. Medications: Acetaminophen (Tylenol Tab*) 650 mg PO Q6H PRN PRN Reason: PAIN Allopurinol (Zyloprim Tab*) 300 mg PO DAILY [facility] Last Admin: 12/05/16 08:07 Dose: 300 mg Colchicine (Colcrys*) 0.6 mg PO Q12H PRN PRN Reason: PAIN Heparin Sodium (Porcine) (Heparin Flush Port (Ivad)) 5 ml FLUSH DAILY [facility] PRN Reason: Protocol Last Admin: 12/05/16 08:24 Dose: Not Given Etoposide 151 mg/ Doxorubicin HCl 30 mg/ Vincristine Sulfate 0.84 mg/ Sodium Chloride 523.39 mls @ 21.808 mls/hr IVPB DAILY@1530 [facility] Stop: 12/07/16 15:29 Last Admin: 12/04/16 16:04 Dose: 21.808 mls/hr Cyclophosphamide 2,000 mg/Cyclophosphamide 268 mg/Sodium Chloride 500 mls @ 500 mls/hr IVPB ONCE ONE Stop: 12/07/16 16:59 Lisinopril (Prinivil Tab*) 5 mg PO DAILY [facility] Last Admin: 12/05/16 08:07 Dose: 5 mg Morphine Sulfate (Ms Contin(*)) 15 mg PO BID [facility] Last Admin: 12/05/16 08:08 Dose: 15 mg Multi-Ingredient Mouthwash/Gargle (Miracle Mw-Jerrod/Nyst/Tetrac*) 5 ml SWISH SPIT Q6H PRN PRN Reason: MOUTH SORES Omeprazole (Prilosec Cap*) 20 mg PO DAILY@0730 [facility] Last Admin: 12/05/16 08:08 Dose: 20 mg Ondansetron HCl (Zofran Tab*) 4 mg PO Q6H PRN PRN Reason: NAUSEA Oxycodone/Acetaminophen (Percocet 5/325 Tab*) 1 tab PO Q6H PRN PRN Reason: PAIN Polyethylene Glycol/Electrolytes (Miralax*) 17 gm PO 0800,2100 PRN PRN Reason: CONSTIPATION Prednisone (Deltasone Tab*) 125 mg PO BID [facility] Last Admin: 12/05/16 08:08 Dose: 125 mg Prochlorperazine (Compazine Tab*) 10 mg PO Q6H PRN PRN Reason: NAUSEA Senna (Senokot Tab*) 1 tab PO DAILY PRN PRN Reason: CONSTIPATION Trazodone HCl (Desyrel Tab*) 50 mg PO BEDTIME [facility] Last Admin: 12/04/16 20:42 Dose: 50 mg Objective: [] Vital Signs Temp Pulse Resp BP Pulse Ox 97.2 F 63 16 119/63 98 12/05/16 07:53 12/05/16 07:53 12/05/16 08:08 12/05/16 07:53 12/05/16 07:53 A&Ox3, EOMI, PERRLA, [place] HRR, S1S2 LS clear bilat. throughout, resp. even and non-labored +BS, abd. soft and non-tender +pp=bilat., no edema Laboratory Results - last 24 hr 12/05/16 12/05/16 08:20 08:20 WBC 3.5 RBC 2.61 L Hgb 7.7 L Hct 24 L MCV 91 MCH 30 MCHC 33 RDW 20 H Plt Count 164 MPV 8 Neut % (Auto) 91.4 H Lymph % (Auto) 4.2 L [place] % (Auto) 4.1 Eos % (Auto) 0 Baso % (Auto) 0.3 Absolute Neuts (auto) 3.2 Absolute Lymphs (auto) 0.1 L Absolute Monos (auto) 0.1 Absolute Eos (auto) 0 Absolute Basos (auto) 0 Absolute Nucleated RBC 0.01 Nucleated RBC % 0.2 Sodium 138 Potassium 4.0 Chloride 107 Carbon Dioxide 24 Anion Gap 7 BUN 12 Creatinine 0.47 L Est GFR ( Amer) 236.7 Est GFR (Non-Af Amer) 184.1 BUN/Creatinine Ratio 25.5 H Glucose 163 H Calcium 9.2 Assessment: []56 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 Plan: []No change in plan of care today Pt. to call [employer] for Neupogen delivery
[2016-12-05] MEDS: [UNRECOGNIZED DRUG - OTHER] IVPB SCH (16:15)
[2016-12-05] MEDS: DOXORUBICIN IVPB SCH (16:15)
[2016-12-05] MEDS: VINCRISTINE IVPB SCH (16:15)
[2016-12-05] MEDS: ETOPOSIDE IVPB SCH (16:15)
[2016-12-05] MEDS: traZODone TAB* 50 MG TAB PO SCH (20:42)
--- NOTE | 2016-12-06 08:00 | PN ---
Progress Note - Progress Note SOAP: Subjective: feels great. good energy. nl BMs. no headaches or nausea. no SOB Objective: Vital Signs Temp Pulse Resp BP Pulse Ox 97.7 F 64 16 122/70 100 12/06/16 00:16 12/06/16 00:16 12/06/16 00:16 12/06/16 00:16 12/06/16 00:16 perr eomi op moist cta bl s1 s2 nl soft nt +bs no le edema port clean A+O x 3, nonfocal neurological exam Laboratory Results - last 24 hr 12/05/16 12/05/16 08:20 08:20 WBC 3.5 RBC 2.61 L Hgb 7.7 L Hct 24 L MCV 91 MCH 30 MCHC 33 RDW 20 H Plt Count 164 MPV 8 Neut % (Auto) 91.4 H Lymph % (Auto) 4.2 L [place] % (Auto) 4.1 Eos % (Auto) 0 Baso % (Auto) 0.3 Absolute Neuts (auto) 3.2 Absolute Lymphs (auto) 0.1 L Absolute Monos (auto) 0.1 Absolute Eos (auto) 0 Absolute Basos (auto) 0 Absolute Nucleated RBC 0.01 Nucleated RBC % 0.2 Sodium 138 Potassium 4.0 Chloride 107 Carbon Dioxide 24 Anion Gap 7 BUN 12 Creatinine 0.47 L Est GFR ( Amer) 236.7 Est GFR (Non-Af Amer) 184.1 BUN/Creatinine Ratio 25.5 H Glucose 163 H Calcium 9.2 Acetaminophen (Tylenol Tab*) 650 mg PO Q6H PRN PRN Reason: PAIN Allopurinol (Zyloprim Tab*) 300 mg PO DAILY [facility] Last Admin: 12/05/16 08:07 Dose: 300 mg Colchicine (Colcrys*) 0.6 mg PO Q12H PRN PRN Reason: PAIN Heparin Sodium (Porcine) (Heparin Flush Port (Ivad)) 5 ml FLUSH DAILY [facility] PRN Reason: Protocol Last Admin: 12/05/16 08:24 Dose: Not Given Etoposide 151 mg/ Doxorubicin HCl 30 mg/ Vincristine Sulfate 0.84 mg/ Sodium Chloride 523.39 mls @ 21.808 mls/hr IVPB DAILY@1530 [facility] Stop: 12/07/16 15:29 Last Admin: 12/05/16 16:15 Dose: 21.808 mls/hr Cyclophosphamide 2,000 mg/Cyclophosphamide 268 mg/Sodium Chloride 500 mls @ 500 mls/hr IVPB ONCE ONE Stop: 12/07/16 16:59 Lisinopril (Prinivil Tab*) 5 mg PO DAILY [facility] Last Admin: 12/05/16 08:07 Dose: 5 mg Morphine Sulfate (Ms Contin(*)) 15 mg PO BID [facility] Last Admin: 12/05/16 20:41 Dose: 15 mg Multi-Ingredient Mouthwash/Gargle (Miracle Mw-Jerrod/Nyst/Tetrac*) 5 ml SWISH SPIT Q6H PRN PRN Reason: MOUTH SORES Omeprazole (Prilosec Cap*) 20 mg PO DAILY@0730 [facility] Last Admin: 12/05/16 08:08 Dose: 20 mg Ondansetron HCl (Zofran Tab*) 4 mg PO Q6H PRN PRN Reason: NAUSEA Oxycodone/Acetaminophen (Percocet 5/325 Tab*) 1 tab PO Q6H PRN PRN Reason: PAIN Polyethylene Glycol/Electrolytes (Miralax*) 17 gm PO 0800,2100 PRN PRN Reason: CONSTIPATION Last Admin: 12/05/16 20:43 Dose: 17 gm Prednisone (Deltasone Tab*) 125 mg PO BID [facility] Last Admin: 12/05/16 20:42 Dose: 125 mg Prochlorperazine (Compazine Tab*) 10 mg PO Q6H PRN PRN Reason: NAUSEA Senna (Senokot Tab*) 1 tab PO DAILY PRN PRN Reason: CONSTIPATION Trazodone HCl (Desyrel Tab*) 50 mg PO BEDTIME [facility] Last Admin: 12/05/16 20:42 Dose: 50 mg Assessment: 56 yo M w triple hit lymphoma on Lo-EPOCH cycle 4, with complete response in marrow after cycle 3, tolerating quite well. Plan: -cont chemo today -plan for d.c. tomorrow after chemo with neupogen to start saturday -cont ms continu for pain -cont lisinopril for BP -allopurinol for gout -add lovenox dvt prophylaxis
[2016-12-06] MEDS: Morphine TAB Extended Release (*) 15 MG TAB.ER PO SCH ×2 (08:25→21:14)
[2016-12-06] MEDS: Omeprazole CAP* 20 MG PO SCH (08:25)
[2016-12-06] MEDS: Lisinopril TAB* 5 MG PO SCH (08:26)
[2016-12-06] MEDS: predniSONE TAB* 50 MG PO SCH ×2 (08:26→21:12)
[2016-12-06] MEDS: Enoxaparin(*) 40 MG/0.4 ML SYR SUBCUT SCH (08:27)
[2016-12-06] MEDS: Allopurinol TAB* 300 MG PO SCH (08:27)
[2016-12-06] MEDS: ETOPOSIDE IVPB SCH (16:16)
[2016-12-06] MEDS: [UNRECOGNIZED DRUG - OTHER] IVPB SCH (16:16)
[2016-12-06] MEDS: DOXORUBICIN IVPB SCH (16:16)
[2016-12-06] MEDS: VINCRISTINE IVPB SCH (16:16)
[2016-12-06] MEDS: traZODone TAB* 50 MG TAB PO SCH (21:13)
[2016-12-07] MEDS: Allopurinol TAB* 300 MG PO SCH (08:28)
[2016-12-07] MEDS: Omeprazole CAP* 20 MG PO SCH (08:28)
[2016-12-07] MEDS: Morphine TAB Extended Release (*) 15 MG TAB.ER PO SCH (08:28)
[2016-12-07] MEDS: Lisinopril TAB* 5 MG PO SCH (08:28)
[2016-12-07] MEDS: predniSONE TAB* 50 MG PO SCH (08:29)
[2016-12-07] MEDS: Enoxaparin(*) 40 MG/0.4 ML SYR SUBCUT SCH (08:29)
[2016-12-07 11:40] LABS: Hematocrit 21 % (42-52); Hemoglobin 6.9 g/dl (14.0-18.0); Mean Corpuscular HGB Conc 33 g/dl (31-36); Mean Corpuscular Hemoglobin 29 pg (27-31); Mean Corpuscular Volume 88 fL (80-94); Mean Platelet Volume 8 um3 (7.4-10.4); Red Blood Count 2.36 10^6/ul (4.0-5.4); Red Cell Distribution Width 18 % (10.5-15); White Blood Count 2.1 10^3/ul (3.5-10.8)
[2016-12-07 11:47] LABS: Comments Flag Yes
[2016-12-07 11:48] LABS: Add Diff/Slide Review? Slide Review Added
[2016-12-07] MEDS ORDERED: Acetaminophen TAB* 325 MG PO ONE (12:02)
[2016-12-07] MEDS ORDERED: diPHENhydraMINE PO* 25 MG PO ONE (12:02)
[2016-12-07 12:21] LABS: Hypochromasia 2+; Tear Drop Cells 2+
[2016-12-07] MEDS ORDERED: NS 0.9% IVPB ONE (16:00)
[2016-12-07] MEDS ORDERED: CYCLOPHOSPHAMIDE IVPB ONE (16:00)
[2016-12-07 21:27] VITALS: BP 144/71
--- NOTE | 2016-12-08 01:26 | DS ---
DISCHARGE SUMMARY: DATE OF ADMISSION: 12/03/16 DATE OF DISCHARGE: 12/07/16 DISCHARGE DIAGNOSES: 1. Triple-hit lymphoma: Status post cycle 4 of EPOCH. 2. Gout: Stable on meds. 3. Hypertension: Stable on meds. 4. Pain: Stable on meds. DISCHARGE MEDICATIONS: 1. MS Contin 15 mg p.o. b.i.d. 2. Oxycodone/acetaminophen 5/325 mg 1 tab p.o. q.6 hours p.r.n. pain. 3. Allopurinol 300 mg p.o. q. day. 4. Lisinopril 5 mg p.o. q. day. 5. Colchicine 0.6 mg p.o. q.12 hours p.r.n. pain. 6. Acetaminophen 650 mg p.o. q.6 hours p.r.n. pain, do not take repeat but unless directed by office. 7. Prochlorperazine 10 mg p.o. q.6 hours p.r.n. nausea. 8. Omeprazole 20 mg p.o. q.a.m. 9. Miracle Mouthwash 5 mL p.o. q.6 hours p.r.n. mouth sores. 10. MiraLAX 17 g p.o. q. day p.r.n. constipation. 11. Ondansetron 4 mg p.o. q.6 hours p.r.n. nausea. 12. Trazodone 50 mg p.o. q.h.s. HOSPITAL COURSE: Please see admission note for full H and P; however, briefly Mr. Lamar is well known to our service due to his treatment for triple-hit lymphoma, with recent workup revealing excellent response thus far to therapy. He was admitted on 12/03/16 for cycle 4 of dose adjusted EPOCH. Throughout this admission, he has done very well with minimal complaints and minimal side effects. As with prior admissions, we have been monitoring Mr. Lamar's H and H as he has become significantly anemic with therapy. Today, his hemoglobin is 6.9; therefore, we will transfuse 1 unit of packed red blood cells prior to discharge. Mr. Lamar is well aware of the plan for Neupogen on discharge at home and management of side effects while as an outpatient. He will follow up with Dr. Ayers on December 21 at 3 p.m. in the office. ANANYA STEWART NP CC: Dr. Rita Carrington * [id number]/CPS #: [id number] MTDD
== END 2016-12-07 20:30 | disposition home or self-care (01) | DRG 847 ==
LOC: MED 15:04
PROVIDERS: ADMIT Internal Medicine Hematology & Oncology; ATTEND Internal Medicine Hematology & Oncology
PROC: 3E03305 Introduction of Other Antineoplastic into Peripheral Vein, Percutaneous Approach (ICD-10-PCS; principal; 2016-12-05)
PROC: 3E0R305 Introduction of Other Antineoplastic into Spinal Canal, Percutaneous Approach (ICD-10-PCS; 2016-12-05)
PROC: 30233N1 Transfusion of Nonautologous Red Blood Cells into Peripheral Vein, Percutaneous Approach (ICD-10-PCS; 2016-12-06)
DX: Z51.11 Encounter for antineoplastic chemotherapy (principal); C83.30 Diffuse large B-cell lymphoma, unspecified site; M10.9 Gout, unspecified; Z87.891 Personal history of nicotine dependence; G89.29 Other chronic pain; M54.5 Low back pain; I10 Essential (primary) hypertension; D64.9 Anemia, unspecified
CPT/HCPCS: 36415; 80048; 80053; 83615; 85025; 86850; 86900; 86901; 86922; 99212; 99214; 99232; A9270-GY; G0463; J1200; J1453; J1642; J1650; J1720; J2469; J3490; J7512; J9000; J9070; J9181; J9260; J9310; J9370; P9040

== ENCOUNTER 2016-12-24 12:04 | Inpatient (IN) | payer OTHER ==
[2016-12-24] MEDS ORDERED: Senna TAB PO PRN (12:29)
[2016-12-24] MEDS ORDERED: oxyCODONE/Acetamin 5/325 MG* TAB PO PRN (12:29)
[2016-12-24] MEDS ORDERED: Acetaminophen TAB* 325 MG PO PRN (12:29)
[2016-12-24] MEDS ORDERED: Ondansetron TAB* 4 MG PO PRN (12:29)
[2016-12-24] MEDS ORDERED: NS 0.45% KCl 20 Meq 1000 ML* 1,000 ML IV SCH (13:00)
[2016-12-24] MEDS ORDERED: Miracle MW-Ben/Nyst/Tetrac SWISH SPIT PRN (14:00)
[2016-12-24] MEDS: DOXORUBICIN IVPB SCH (14:45)
[2016-12-24] MEDS: [UNRECOGNIZED DRUG - OTHER] IVPB SCH (14:45)
[2016-12-24] MEDS: VINCRISTINE IVPB SCH (14:45)
[2016-12-24] MEDS: ETOPOSIDE IVPB SCH (14:45)
[2016-12-24] MEDS: Potassium Chlor TAB* 20 MEQ TAB.ER PO SCH (16:21)
[2016-12-24] MEDS: traZODone TAB* 50 MG TAB PO SCH (20:56)
[2016-12-24] MEDS: Morphine TAB Extended Release (*) 15 MG TAB.ER PO SCH (20:56)
[2016-12-24] MEDS: predniSONE TAB* 20 MG PO SCH (20:56)
[2016-12-25] MEDS: Lisinopril TAB* 5 MG PO SCH (07:54)
[2016-12-25] MEDS: Potassium Chlor TAB* 20 MEQ TAB.ER PO SCH ×2 (08:20→16:14)
[2016-12-25] MEDS: Omeprazole CAP* 20 MG PO SCH (08:21)
[2016-12-25] MEDS: Allopurinol TAB* 300 MG PO SCH (08:21)
[2016-12-25] MEDS: Morphine TAB Extended Release (*) 15 MG TAB.ER PO SCH ×2 (08:21→22:14)
[2016-12-25] MEDS: predniSONE TAB* 20 MG PO SCH ×2 (08:22→22:14)
[2016-12-25] MEDS: Citalopram TAB* 20 MG PO SCH (08:22)
[2016-12-25 10:00] LABS: Hematocrit 27 % (42-52); Mean Corpuscular Hemoglobin 30 pg (27-31)
[2016-12-25 10:07] LABS: Hemoglobin 8.9 g/dl (14.0-18.0); Mean Corpuscular HGB Conc 33 g/dl (31-36); Mean Corpuscular Volume 92 fL (80-94); Mean Platelet Volume 9 um3 (7.4-10.4); Red Blood Count 2.97 10^6/ul (4.0-5.4); Red Cell Distribution Width 18 % (10.5-15)
[2016-12-25 10:10] LABS: BUN/Creatinine Ratio 17.4 (8-20); Calcium 8.6 mg/dL (8.6-10.3); EGFR African American 242.7 (>60); EGFR Non-African American 188.7 (>60); Potassium 4.1 mmol/L (3.5-5.0)
[2016-12-25 10:11] LABS: Comments Flag Yes; White Blood Count 1.2 10^3/ul (3.5-10.8)
[2016-12-25] MEDS: [UNRECOGNIZED DRUG - OTHER] IVPB SCH (13:59)
[2016-12-25] MEDS: ETOPOSIDE IVPB SCH (13:59)
[2016-12-25] MEDS: VINCRISTINE IVPB SCH (13:59)
[2016-12-25] MEDS: DOXORUBICIN IVPB SCH (13:59)
[2016-12-25] MEDS: Polyethylene Glycol 3350* 17 GM PACKET PO PRN (16:14)
[2016-12-25] MEDS: traZODone TAB* 50 MG TAB PO SCH (22:14)
[2016-12-26] MEDS: Omeprazole CAP* 20 MG PO SCH (08:00)
[2016-12-26] MEDS: predniSONE TAB* 20 MG PO SCH ×2 (08:30→20:38)
[2016-12-26] MEDS: Lisinopril TAB* 5 MG PO SCH (08:30)
[2016-12-26] MEDS: Potassium Chlor TAB* 20 MEQ TAB.ER PO SCH ×2 (08:31→18:02)
[2016-12-26] MEDS: Citalopram TAB* 20 MG PO SCH (08:31)
[2016-12-26] MEDS: Allopurinol TAB* 300 MG PO SCH (08:31)
[2016-12-26] MEDS: Morphine TAB Extended Release (*) 15 MG TAB.ER PO SCH ×2 (08:31→20:39)
[2016-12-26 10:16] LABS: Hematocrit 24 % (42-52); Hemoglobin 7.9 g/dl (14.0-18.0); Mean Corpuscular HGB Conc 32 g/dl (31-36); Mean Corpuscular Hemoglobin 30 pg (27-31); Mean Corpuscular Volume 93 fL (80-94); Mean Platelet Volume 10 um3 (7.4-10.4); Red Blood Count 2.61 10^6/ul (4.0-5.4); Red Cell Distribution Width 18 % (10.5-15); White Blood Count 3.7 10^3/ul (3.5-10.8)
[2016-12-26 10:40] LABS: BUN/Creatinine Ratio 30.8 (8-20); Calcium 8.3 mg/dL (8.6-10.3); EGFR African American 293.6 (>60); EGFR Non-African American 228.3 (>60); Potassium 4.7 mmol/L (3.5-5.0)
--- NOTE | 2016-12-26 10:47 | PN ---
Progress Note - Progress Note SOAP: Subjective: []Feeling very well today. Called got his Neupogen delivery. Had more nausea with last cycle (day after d/c /c nausea and emesis) then diarrhea, so not sure if he had a little GI bug or r/t dose escalation. Appetite fine now and denies nausea today. No mouth sores. No neuropathy. Normal BM yesterday. No urinary symptoms. No SOB. No chest pain or pressure. No rash. Medicaitons Acetaminophen (Tylenol Tab*) 650 mg PO Q6H PRN PRN Reason: PAIN Allopurinol (Zyloprim Tab*) 300 mg PO DAILY [facility] Last Admin: 12/26/16 08:31 Dose: 300 mg Citalopram Hydrobromide (Celexa Tab*) 20 mg PO DAILY [facility] Last Admin: 12/26/16 08:31 Dose: 20 mg Potassium Chloride/Sodium Chloride (Ns 0.45% Kcl 20 Meq 1000 Ml*) 1,000 mls @ 75 mls/hr IV PER RATE [facility] Etoposide 173 mg/ Doxorubicin HCl 35 mg/ Vincristine Sulfate 0.8 mg/ Sodium Chloride 526.95 mls @ 21.956 mls/hr IVPB DAILY@1430 [facility] Stop: 12/28/16 14:29 Last Admin: 12/25/16 13:59 Dose: 21.956 mls/hr Cyclophosphamide 2,592 mg/ (Sodium Chloride) 500 mls @ 500 mls/hr IVPB ONCE ONE Stop: 12/28/16 15:29 Lisinopril (Prinivil Tab*) 5 mg PO DAILY [facility] Last Admin: 12/26/16 08:30 Dose: 5 mg Morphine Sulfate (Ms Contin(*)) 15 mg PO BID [facility] Last Admin: 12/26/16 08:31 Dose: 15 mg Multi-Ingredient Mouthwash/Gargle (Miracle Mw-Jerrod/Nyst/Tetrac*) 5 ml SWISH SPIT Q6H PRN PRN Reason: MOUTH SORES Omeprazole (Prilosec Cap*) 20 mg PO DAILY@0730 [facility] Last Admin: 12/26/16 08:00 Dose: 20 mg Ondansetron HCl (Zofran Tab*) 4 mg PO Q6H PRN PRN Reason: NAUSEA Oxycodone/Acetaminophen (Percocet 5/325 Tab*) 1 tab PO Q6H PRN PRN Reason: PAIN Polyethylene Glycol/Electrolytes (Miralax*) 17 gm PO DAILY PRN PRN Reason: CONSTIPATION Last Admin: 12/25/16 16:14 Dose: 17 gm Potassium Chloride (Klor Con Er Tab*) 20 meq PO BID WITH MEALS [facility] Last Admin: 12/26/16 08:31 Dose: 20 meq Prednisone (Deltasone Tab*) 120 mg PO BID [facility] Stop: 12/29/16 09:01 Last Admin: 12/26/16 08:30 Dose: 120 mg Prochlorperazine (Compazine Tab*) 10 mg PO Q6H PRN PRN Reason: NAUSEA Senna (Senokot Tab*) 1 tab PO DAILY PRN PRN Reason: CONSTIPATION Trazodone HCl (Desyrel Tab*) 50 mg PO BEDTIME [facility] Last Admin: 12/25/16 22:14 Dose: 50 mg Objective: [] Vital Signs Temp Pulse Resp BP Pulse Ox 97.4 F 70 18 109/60 96 12/26/16 07:56 12/26/16 07:56 12/26/16 08:31 12/26/16 07:56 12/26/16 07:56 A&Ox3, EOMI, [place], neuro grossly non-focal HRR, S1S2, no murmur noted LS clear bilat. throughout, resp. even and non-labored +BS, abd. soft and non-tender +PP=bilat., no edema noted Laboratory Results - last 24 hr 12/26/16 12/26/16 08:23 08:23 WBC 3.7 RBC 2.61 L Hgb 7.9 L Hct 24 L MCV 93 MCH 30 MCHC 32 RDW 18 H Plt Count 121 L MPV 10 Neut % (Auto) 94.4 H Lymph % (Auto) 3.6 L [place] % (Auto) 1.7 Eos % (Auto) 0 Baso % (Auto) 0.3 Absolute Neuts (auto) 3.4 Absolute Lymphs (auto) 0.1 L Absolute Monos (auto) 0.1 Absolute Eos (auto) 0 Absolute Basos (auto) 0 Absolute Nucleated RBC 0 Nucleated RBC % 0.1 Sodium 137 Potassium 4.7 Chloride 107 Carbon Dioxide 24 Anion Gap 6 BUN 12 Creatinine 0.39 L Est GFR ( Amer) 293.6 Est GFR (Non-Af Amer) 228.3 BUN/Creatinine Ratio 30.8 H Glucose 149 H Calcium 8.3 L Assessment: []56 yo with 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 Plan: []1. DLBCL: Continue chemotherapy as ordered, no changes today. 2. Anemia: Will continue daily labs as he'll likely need a blood transfusion on Saturday, day of d/c (as had in prior cycles). 3. Nausea: increased with C4 (and higher emetogenic risk with dose escalation) therefore plan additional dose of IV Aloxi and Emend on Saturday, reviewed risk of constipation. Disposition: D/C home Saturday after completion of cycle [place] [facility]
[2016-12-26] MEDS: VINCRISTINE IVPB SCH (14:30)
[2016-12-26] MEDS: DOXORUBICIN IVPB SCH (14:30)
[2016-12-26] MEDS: [UNRECOGNIZED DRUG - OTHER] IVPB SCH (14:30)
[2016-12-26] MEDS: ETOPOSIDE IVPB SCH (14:30)
[2016-12-26] MEDS: Prochlorperazine TAB* 10 MG PO PRN ×2 (14:58→20:44)
[2016-12-26] MEDS: traZODone TAB* 50 MG TAB PO SCH (20:39)
[2016-12-27] MEDS: Omeprazole CAP* 20 MG PO SCH (08:08)
[2016-12-27 08:53] LABS: Hematocrit 24 % (42-52); Hemoglobin 7.9 g/dl (14.0-18.0); Mean Corpuscular HGB Conc 33 g/dl (31-36); Mean Corpuscular Hemoglobin 30 pg (27-31); Mean Corpuscular Volume 92 fL (80-94); Mean Platelet Volume 9 um3 (7.4-10.4); Red Blood Count 2.65 10^6/ul (4.0-5.4); Red Cell Distribution Width 17 % (10.5-15)
[2016-12-27 08:54] LABS: Comments Flag Yes
[2016-12-27 08:55] LABS: White Blood Count 2.8 10^3/ul (3.5-10.8)
[2016-12-27 09:02] LABS: BUN/Creatinine Ratio 35.9 (8-20); Calcium 8.5 mg/dL (8.6-10.3); EGFR African American 293.6 (>60); EGFR Non-African American 228.3 (>60); Potassium 4.2 mmol/L (3.5-5.0)
[2016-12-27] MEDS: Citalopram TAB* 20 MG PO SCH (09:22)
[2016-12-27] MEDS: Morphine TAB Extended Release (*) 15 MG TAB.ER PO SCH ×2 (09:22→23:33)
[2016-12-27] MEDS: Lisinopril TAB* 5 MG PO SCH (09:23)
[2016-12-27] MEDS: Allopurinol TAB* 300 MG PO SCH (09:23)
[2016-12-27] MEDS: predniSONE TAB* 20 MG PO SCH ×2 (09:24→23:34)
[2016-12-27] MEDS: Potassium Chlor TAB* 20 MEQ TAB.ER PO SCH ×2 (09:25→17:12)
--- NOTE | 2016-12-27 10:12 | PN ---
Progress Note - Progress Note SOAP: Subjective: []Feeling fine. Had lots of hiccups overnight, haven't improved yet with compazine. BM was firm, "still need some laxative." No N/V. No other concerns. Medications: Acetaminophen (Tylenol Tab*) 650 mg PO Q6H PRN PRN Reason: PAIN Allopurinol (Zyloprim Tab*) 300 mg PO DAILY [facility] Last Admin: 12/27/16 09:23 Dose: 300 mg Chlorpromazine HCl (Thorazine Tab*) 25 mg PO Q8H PRN PRN Reason: intractable hiccups Citalopram Hydrobromide (Celexa Tab*) 20 mg PO DAILY [facility] Last Admin: 12/27/16 09:22 Dose: 20 mg Potassium Chloride/Sodium Chloride (Ns 0.45% Kcl 20 Meq 1000 Ml*) 1,000 mls @ 75 mls/hr IV PER RATE [facility] Etoposide 173 mg/ Doxorubicin HCl 35 mg/ Vincristine Sulfate 0.8 mg/ Sodium Chloride 526.95 mls @ 21.956 mls/hr IVPB DAILY@1430 [facility] Stop: 12/28/16 14:29 Last Admin: 12/26/16 14:30 Dose: 21.956 mls/hr Cyclophosphamide 2,592 mg/ (Sodium Chloride) 500 mls @ 500 mls/hr IVPB ONCE ONE Stop: 12/28/16 15:29 Palonosetron 0.25 mg/ Sodium (Chloride) 55 mls @ 165 mls/hr IVPB ONCE ONE Stop: 12/28/16 09:19 Fosaprepitant 150 mg/ Sodium (Chloride) 150 mls @ 300 mls/hr IVPB ONCE ONE Stop: 12/28/16 09:29 Lisinopril (Prinivil Tab*) 5 mg PO DAILY [facility] Last Admin: 12/27/16 09:23 Dose: 5 mg Morphine Sulfate (Ms Contin(*)) 15 mg PO BID [facility] Last Admin: 12/27/16 09:22 Dose: 15 mg Multi-Ingredient Mouthwash/Gargle (Miracle Mw-Jerrod/Nyst/Tetrac*) 5 ml SWISH SPIT Q6H PRN PRN Reason: MOUTH SORES Omeprazole (Prilosec Cap*) 20 mg PO DAILY@0730 [facility] Last Admin: 12/27/16 08:08 Dose: 20 mg Ondansetron HCl (Zofran Tab*) 4 mg PO Q6H PRN PRN Reason: NAUSEA Oxycodone/Acetaminophen (Percocet 5/325 Tab*) 1 tab PO Q6H PRN PRN Reason: PAIN Polyethylene Glycol/Electrolytes (Miralax*) 17 gm PO DAILY PRN PRN Reason: CONSTIPATION Last Admin: 12/25/16 16:14 Dose: 17 gm Potassium Chloride (Klor Con Er Tab*) 20 meq PO BID WITH MEALS [facility] Last Admin: 12/27/16 09:25 Dose: 20 meq Prednisone (Deltasone Tab*) 120 mg PO BID [facility] Stop: 12/29/16 09:01 Last Admin: 12/27/16 09:24 Dose: 120 mg Prochlorperazine (Compazine Tab*) 10 mg PO Q6H PRN PRN Reason: NAUSEA Last Admin: 12/26/16 20:44 Dose: 10 mg Senna (Senokot Tab*) 1 tab PO DAILY PRN PRN Reason: CONSTIPATION Trazodone HCl (Desyrel Tab*) 50 mg PO BEDTIME [facility] Last Admin: 12/26/16 20:39 Dose: 50 mg Objective: [] Vital Signs Temp Pulse Resp BP Pulse Ox 97.3 F 77 18 120/69 97 12/27/16 07:46 12/27/16 07:46 12/27/16 09:48 12/27/16 07:46 12/27/16 07:46 A&Ox3, EOMI, [place], neuro grossly non-focal HRR, S1S2, no murmur noted LS clear bilat. throughout, resp. even and non-labored +BS, abd. soft and non-tender, no hiccups during exam +PP=bilat., no edema Laboratory Results - last 24 hr 12/26/16 12/26/16 12/27/16 08:23 08:23 08:35 WBC 3.7 RBC 2.61 L Hgb 7.9 L Hct 24 L MCV 93 MCH 30 MCHC 32 RDW 18 H Plt Count 121 L MPV 10 Neut % (Auto) 94.4 H Lymph % (Auto) 3.6 L [place] % (Auto) 1.7 Eos % (Auto) 0 Baso % (Auto) 0.3 Absolute Neuts (auto) 3.4 Absolute Lymphs (auto) 0.1 L Absolute Monos (auto) 0.1 Absolute Eos (auto) 0 Absolute Basos (auto) 0 Absolute Nucleated RBC 0 Nucleated RBC % 0.1 Sodium 137 136 Potassium 4.7 4.2 Chloride 107 106 Carbon Dioxide 24 25 Anion Gap 6 5 BUN 12 14 Creatinine 0.39 L 0.39 L Est GFR ( Amer) 293.6 293.6 Est GFR (Non-Af Amer) 228.3 228.3 BUN/Creatinine Ratio 30.8 H 35.9 H Glucose 149 H 138 H Calcium 8.3 L 8.5 L 12/27/16 08:35 WBC 2.8 L RBC 2.65 L Hgb 7.9 L Hct 24 L MCV 92 MCH 30 MCHC 33 RDW 17 H Plt Count 116 L MPV 9 Neut % (Auto) 96.2 H Lymph % (Auto) 3.1 L [place] % (Auto) 0.6 L Eos % (Auto) 0 Baso % (Auto) 0.1 Absolute Neuts (auto) 2.7 Absolute Lymphs (auto) 0.1 L Absolute Monos (auto) 0 Absolute Eos (auto) 0 Absolute Basos (auto) 0 Absolute Nucleated RBC 0 Nucleated RBC % 0.1 Sodium Potassium Chloride Carbon Dioxide Anion Gap BUN Creatinine Est GFR ( Amer) Est GFR (Non-Af Amer) BUN/Creatinine Ratio Glucose Calcium Assessment: []56 yo m with 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 Plan: []1. Chemotherapy as ordered, no change. 2. Hiccups: add Thorazine PRN if no improvement with compazine, eval. on d/c if cont. PRN d/t cholinergic risk 3. Anemia: follow D/C tomorrow at completion of chemo tomorrow, neupogen as planned
[2016-12-27] MEDS: [UNRECOGNIZED DRUG - OTHER] IVPB SCH (13:42)
[2016-12-27] MEDS: DOXORUBICIN IVPB SCH (13:42)
[2016-12-27] MEDS: VINCRISTINE IVPB SCH (13:42)
[2016-12-27] MEDS: ETOPOSIDE IVPB SCH (13:42)
[2016-12-27] MEDS: chlorproMAZINE TAB* 25 MG PO PRN (14:28)
[2016-12-27] MEDS: traZODone TAB* 50 MG TAB PO SCH (23:33)
[2016-12-27] MEDS: Polyethylene Glycol 3350* 17 GM PACKET PO PRN (23:35)
[2016-12-28] MEDS: Omeprazole CAP* 20 MG PO SCH (07:36)
[2016-12-28] MEDS: Lisinopril TAB* 5 MG PO SCH (08:58)
[2016-12-28] MEDS: Citalopram TAB* 20 MG PO SCH (08:58)
[2016-12-28] MEDS: Allopurinol TAB* 300 MG PO SCH (08:58)
[2016-12-28] MEDS: predniSONE TAB* 20 MG PO SCH (08:59)
[2016-12-28] MEDS: Morphine TAB Extended Release (*) 15 MG TAB.ER PO SCH (08:59)
[2016-12-28] MEDS: Potassium Chlor TAB* 20 MEQ TAB.ER PO SCH (08:59)
[2016-12-28] MEDS ORDERED: Fosaprepitant IV* 150 MG in NS 0.9% 250 ML* 145 ML IVPB ONE (09:00)
[2016-12-28] MEDS ORDERED: Palonosetron* 0.25 MG in NS 0.9% 50 ML* 50 ML IVPB ONE (09:00)
[2016-12-28] MEDS: chlorproMAZINE TAB* 25 MG PO PRN (13:52)
[2016-12-28 13:54] LABS: BUN/Creatinine Ratio 37.5 (8-20); Calcium 8.4 mg/dL (8.6-10.3); EGFR African American 285.2 (>60); EGFR Non-African American 221.7 (>60); Potassium 4.2 mmol/L (3.5-5.0)
[2016-12-28 14:25] LABS: Hematocrit 25 % (42-52); Hemoglobin 8.3 g/dl (14.0-18.0); Mean Corpuscular HGB Conc 33 g/dl (31-36); Mean Corpuscular Hemoglobin 30 pg (27-31); Mean Corpuscular Volume 90 fL (80-94); Mean Platelet Volume 9 um3 (7.4-10.4); Red Cell Distribution Width 17 % (10.5-15)
[2016-12-28] MEDS ORDERED: CYCLOPHOSPHAMIDE IVPB ONE (14:30)
[2016-12-28] MEDS ORDERED: NS 0.9% IVPB ONE (14:30)
[2016-12-28 14:32] LABS: Comments Flag Yes
[2016-12-28] MEDS ORDERED: NS 0.9% 1000 ML* 1,000 ML IV ONE (14:44)
[2016-12-28 15:36] VITALS: BP 126/75
--- NOTE | 2016-12-29 09:29 | DS ---
CC: Dr. Carrington DISCHARGE SUMMARY: DATE OF ADMISSION: 12/24/16 DATE OF DISCHARGE: 12/28/16 DISCHARGE DIAGNOSES: 1. 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 2. Anemia: Chemotherapy induced, monitoring, transfuse as needed. 3. Gout: Stable on medications. 4. Chemotherapy-induced nausea: Stable with medications at this time. DISCHARGE MEDICATIONS: 1. Thorazine 25 mg p.o. q.8 hours p.r.n. intractable hiccups. 2. Prednisone as directed. 3. Allopurinol 300 mg p.o. daily. 4. Lisinopril 5 mg p.o. daily. 5. Colchicine 0.6 mg p.o. q.12 hours p.r.n. pain. 6. Sennosides tablets p.r.n. constipation. 7. Acetaminophen 650 mg p.o. q.6 hours p.r.n. pain. 8. Prochlorperazine 10 mg p.o. q.6 hours p.r.n. nausea. 9. Omeprazole 20 mg p.o. daily. 10. Miracle Mouthwash 5 mL q.6 hours p.r.n. mouth sores. 11. MiraLAX 17 g p.o. daily p.r.n. constipation. 12. Ondansetron 4 mg p.o. q.6 hours p.r.n. nausea. 13. Trazodone 50 mg p.o. q.h.s. 14. MS Contin 15 mg p.o. b.i.d. 15. Oxycodone/acetaminophen 5/325 mg p.o. q.6 hours p.r.n. pain. 16. Citalopram 20 mg p.o. daily. 17. Potassium chloride 20 mEq p.o. b.i.d. HOSPITAL COURSE: Please see admission note for full H and P; however, briefly Mr. Lamar is well known to our service due to his diagnosis of triple-hit DLBCL. He is currently on treatment with do sages of EPOCH, completing cycle 5 today on 12/28/16. With cycle 4, he had increased nausea. There fore, with cycle 5, we have added additional doses of Aloxi and Emend IV on the day of discharge. W e have been monitoring his H and H closely with 2 days' H and H pending; however, consideration for blood transfusion as needed. Mr. Lamar has been feeling well overall during his treatment with n o complaints. He has been ambulating easily. He has had a bowel movement following use of laxative s, and denies significant nausea or upset stomach. During his treatment; however, he has developed hiccups with some relief provided by Thorazine. Mr. Lamar will be discharged this afternoon foll owing completion of his therapy with plan for Neupogen as directed. He will follow up with Dr. Ayers in the office to confirm moving forward with final cycle 6 in the near future. Mr. Lamar denies any questions at this time, stating full understanding of the plan of care and stating he feels wel l overall with no concerns. TIME SPENT: Greater than 40 minutes spent with greater than 50% face to face counseling. ANANYA STEWART, ANDREI [id number]/CPS #: [id number]
== END 2016-12-28 16:50 | disposition home or self-care (01) | DRG 847 ==
LOC: MED 12:20
PROVIDERS: ADMIT Internal Medicine Hematology & Oncology; ATTEND Internal Medicine Hematology & Oncology
DX: Z51.11 Encounter for antineoplastic chemotherapy (principal); C83.30 Diffuse large B-cell lymphoma, unspecified site; I95.9 Hypotension, unspecified; D64.81 Anemia due to antineoplastic chemotherapy; M10.9 Gout, unspecified; R06.6 Hiccough; R11.0 Nausea; T45.1X5A Adverse effect of antineoplastic and immunosuppressive drugs, initial encounter; K59.00 Constipation, unspecified; F32.9 Major depressive disorder, single episode, unspecified; M54.9 Dorsalgia, unspecified; Z87.891 Personal history of nicotine dependence; Z79.52 Long term (current) use of systemic steroids; M89.9 Disorder of bone, unspecified
CPT/HCPCS: A9270-GY; G0463; G8427; J1200; J1453; J1642; J1720; J2469; J3490; J7512; J9000; J9070; J9181; J9260; J9310; J9370; Q0164

== ENCOUNTER 2017-01-03 15:13 | Inpatient (IN) | payer OTHER ==
[2017-01-03] MEDS ORDERED: NS 0.9% 1000 ML* 2,000 ML IV ONE (16:00)
--- NOTE | 2017-01-03 16:22 | RAD ---
INDICATION: Syncope and tachycardia. COMPARISON: Comparison is made with prior chest x-ray study from November 12, 2016. TECHNIQUE: A portable view of the chest was obtained. FINDINGS: Cardiac and mediastinal contours appear to be within normal limits. There is an [id number] catheter present entering on the left side. The catheter tip projects over the right atrium. The lungs are clear. No pleural effusion is seen. IMPRESSION: NO EVIDENCE FOR ACUTE DISEASE.
[2017-01-03] MEDS ORDERED: Ondansetron INJ* 2 MG/ML VIAL IV ONE (16:39)
[2017-01-03] MEDS ORDERED: Cefepime(*) 2 GM in NS 0.9% 50 ML* 50 ML IVPB ONE (16:40)
[2017-01-03 16:47] LABS: BUN/Creatinine Ratio 29.3 (8-20); Blood Urea Nitrogen 34 mg/dL (6-24); CO2 Carbon Dioxide 21 mmol/L (22-32); Chloride 97 mmol/L (101-111); EGFR Non-African American 64.9 (>60); Glucose 136 mg/dL (70-100); Sodium 128 mmol/L (133-145)
[2017-01-03 16:48] LABS: ALT 25 U/L (7-52); AST 9 U/L (13-39); Albumin 2.6 g/dL (3.2-5.2); Alkaline Phosphatase 48 U/L (34-104); Calcium 7.7 mg/dL (8.6-10.3); Creatine Kinase 36 U/L (10-223); EGFR African American 83.5 (>60); Lipase < 10 U/L (11.0-82.0); Magnesium 1.9 mg/dL (1.9-2.7); Total Protein 4.6 g/dL (6.4-8.9)
[2017-01-03 16:49] LABS: Troponin I 0.01 ng/mL (<0.04)
[2017-01-03 16:57] LABS: Anion Gap 10 mmol/L (2-11); Potassium 2.6 mmol/L (3.5-5.0)
[2017-01-03 17:02] LABS: Hematocrit 22 % (42-52); Hemoglobin 7.6 g/dl (14.0-18.0); Mean Corpuscular HGB Conc 34 g/dl (31-36); Mean Corpuscular Hemoglobin 30 pg (27-31); Mean Corpuscular Volume 87 fL (80-94); Mean Platelet Volume 9 um3 (7.4-10.4); Red Blood Count 2.58 10^6/ul (4.0-5.4); Red Cell Distribution Width 17 % (10.5-15); White Blood Count 0.1 10^3/ul (3.5-10.8)
[2017-01-03 17:04] LABS: Comments Flag Yes
[2017-01-03 17:06] LABS: Add Diff/Slide Review? Slide Review Added
[2017-01-03 17:11] LABS: TSH (Thyroid Stimulating Horm) 4.99 mcIU/mL (0.34-5.60)
[2017-01-03] MEDS ORDERED: NS 0.9% 50 ML* 50 ML ONE (17:18)
[2017-01-03 17:46] LABS: Hematocrit 21 % (42-52); Hemoglobin 7.2 g/dl (14.0-18.0); Mean Corpuscular HGB Conc 34 g/dl (31-36); Mean Corpuscular Hemoglobin 30 pg (27-31); Mean Corpuscular Volume 88 fL (80-94); Mean Platelet Volume 9 um3 (7.4-10.4); Red Blood Count 2.44 10^6/ul (4.0-5.4); Red Cell Distribution Width 17 % (10.5-15); White Blood Count 0 10^3/ul (3.5-10.8)
[2017-01-03 18:00] LABS: Comments Flag Yes
[2017-01-03 18:01] LABS: Add Diff/Slide Review? Slide Review Added
[2017-01-03] MEDS ORDERED: Ondansetron INJ* 2 MG/ML VIAL IV PRN (18:57)
[2017-01-03] MEDS ORDERED: Acetaminophen TAB* 325 MG PO PRN (18:57)
[2017-01-03] MEDS ORDERED: Miracle MW-Ben/Nyst/Tetrac SWISH SPIT PRN (19:11)
[2017-01-03] MEDS ORDERED: NS 0.9% IVPB SCH ×2 (19:15)
[2017-01-03] MEDS ORDERED: POTASSIUM CHLORIDE TPN IVPB SCH ×2 (19:15)
[2017-01-03] MEDS ORDERED: Diphenoxylat/Atrop 2.5-0.025M* 1 TAB PO PRN (19:25)
[2017-01-03] MEDS ORDERED: diPHENhydraMINE PO* 25 MG PO ONE (20:00)
[2017-01-03] MEDS ORDERED: Potassium Chlor TAB* 20 MEQ TAB.ER PO SCH (20:00)
--- NOTE | 2017-01-03 20:06 | ED ---
Linda Cantu Alok, scribed for Wilfrido Powell MD on 01/03/17 at 1613 . Syncope/Near Syncope - HPI Summary HPI Summary: 56 y/o male presents to the ED following three syncope events today and once yesterday. Pt adds he has been having diarrhea for the past week as well as vomiting two days ago. He is [place] pt with lymphoma and is seen by Dr. Parra who sent him here today. Pt denies fever, or rashes. Pt last fell today in the bathroom with strong impact but denies elbow, head, neck, or abd pain. Pt normally has Neuprogan treatment at 1600 each day. - History Of Current Complaint Chief Complaint: EDSyncope Time Seen by Provider: 01/03/17 15:54 Hx Obtained From: Patient, Family/Physician Chief Of Pathology Onset/Duration: Gradual Onset, Lasting Days Timing: Intermittent Episode Lasting Context: Witnessed Associated Head Trauma: No Aggravating Factor(s): Nothing Alleviating Factor(s): Nothing Associated Signs And Symptoms: Diarrhea, Vomiting - Allergies/Home Medications Allergies/Adverse Reactions: Allergies Allergy/AdvReac Type Severity Reaction Status Date / Time No Known Allergies Allergy Verified 11/12/16 06:26 PMH/Surg Hx/FS Hx/Imm Hx Endocrine/Hematology History: Reports: Hx Bone Marrow Disease - CANCER Denies: Hx Diabetes Cardiovascular History: Reports: Hx Hypertension - on meds Denies: Hx Pacemaker/ICD Respiratory History: Denies: Hx Asthma Musculoskeletal History: Reports: Hx Back Problems - Chronic lower back pain, Hx Gout Sensory History: Reports: Hx Contacts or Glasses Denies: Hx Hearing Aid Opthamlomology History: Reports: Hx Contacts or Glasses Neurological History: Reports: Other Neuro Impairments/Disorders - LEFT SCIATIC NERVE PAIN Psychiatric History: Denies: Hx Panic Disorder - Cancer History Cancer Type, 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 Negative: Abdominal Pain Negative: Rash All Other Systems Reviewed And Are Negative: Yes Physical Exam Triage Information Reviewed: Yes Vital Signs On Initial Exam: Initial Vitals Temp Pulse Resp BP Pulse Ox 98.3 F 113 20 75/53 100 01/03/17 15:48 01/03/17 15:48 01/03/17 15:48 01/03/17 15:48 01/03/17 15:48 Vital Signs Reviewed: Yes Appearance: Positive: No Pain Distress, Ill-Appearing - Moderately Skin: Positive: Warm, Dry, Pale Head/Face: Positive: Normal Head/Face Inspection Eyes: Positive: EOMI, JANAE ENT: Positive: Other - Dry oral mucosa Neck: Positive: Supple, Nontender Respiratory/Lung Sounds: Positive: Clear to Auscultation, Breath Sounds Present Cardiovascular: Positive: Tachycardia Abdomen Description: Positive: Nontender, Soft Bowel Sounds: Positive: Present Musculoskeletal: Positive: Normal, Other - Moves all four extremities Neurological: Positive: Normal, Sensory/Motor Intact, Alert, Oriented to Person Place, Time Psychiatric: Positive: Affect/Mood Appropriate Diagnostics - Vital Signs Vital Signs Temp Pulse Resp BP Pulse Ox 01/03/17 15:48 98.3 F 113 20 75/53 100 - Laboratory Lab Results: Lab Results 01/03/17 01/03/17 01/03/17 Range/Units 16:20 16:20 16:20 WBC 0.1 L (3.5-10.8) 10^3/ul RBC 2.58 L (4.0-5.4) 10^6/ul Hgb 7.6 L (14.0-18.0) g/dl Hct 22 L (42-52) % MCV 87 (80-94) fL MCH 30 (27-31) pg MCHC 34 (31-36) g/dl RDW 17 H (10.5-15) % Plt Count 8 L* (150-450) 10^3/ul MPV 9 (7.4-10.4) um3 Neut % (Auto) 14.5 L (38-83) % Lymph % (Auto) 35.5 (25-47) % Mcdonald % (Auto) 5.5 (1-9) % Eos % (Auto) 44.5 H (0-6) % Baso % (Auto) 0 (0-2) % Absolute Neuts (auto) 0 L* (1.5-7.7) 10^3/ul Absolute Lymphs (auto) 0 L (1.0-4.8) 10^3/ul Absolute Monos (auto) 0 (0-0.8) 10^3/ul Absolute Eos (auto) 0 (0-0.6) 10^3/ul Absolute Basos (auto) 0 (0-0.2) 10^3/ul Absolute Nucleated RBC 0 10^3/ul Nucleated RBC % 0 INR (Anticoag Therapy) 1.60 H (0.89-1.11) APTT 51.1 H (26.0-36.3) seconds Sodium 128 L (133-145) mmol/L Potassium 2.6 L* (3.5-5.0) mmol/L Chloride 97 L (101-111) mmol/L Carbon Dioxide 21 L (22-32) mmol/L Anion Gap 10 (2-11) mmol/L BUN 34 H (6-24) mg/dL Creatinine 1.16 (0.67-1.17) mg/dL Est GFR ( Amer) 83.5 (>60) Est GFR (Non-Af Amer) 64.9 (>60) BUN/Creatinine Ratio 29.3 H (8-20) Glucose 136 H (70-100) mg/dL Lactic Acid (0.5-2.0) mmol/L Calcium 7.7 L (8.6-10.3) mg/dL Magnesium 1.9 (1.9-2.7) mg/dL Total Bilirubin 0.80 (0.2-1.0) mg/dL AST 9 L (13-39) U/L ALT 25 (7-52) U/L Alkaline Phosphatase 48 (34-104) U/L Total Creatine Kinase 36 (10-223) U/L CK-MB (CK-2) 0.3 L (0.6-6.3) ng/mL Troponin I 0.01 (<0.04) ng/mL C-Reactive Protein 407.50 H (< 5.00) mg/L B-Natriuretic Peptide ( - 100) pg/mL Total Protein 4.6 L (6.4-8.9) g/dL Albumin 2.6 L (3.2-5.2) g/dL Globulin 2.0 (2-4) g/dL Albumin/Globulin Ratio 1.3 (1-3) Lipase < 10 L (11.0-82.0) U/L TSH 4.99 (0.34-5.60) mcIU/mL Blood Type Antibody Screen Crossmatch 01/03/17 01/03/17 01/03/17 Range/Units 16:20 16:20 17:30 WBC 0 L (3.5-10.8) 10^3/ul RBC 2.44 L (4.0-5.4) 10^6/ul Hgb 7.2 L (14.0-18.0) g/dl Hct 21 L (42-52) % MCV 88 (80-94) fL MCH 30 (27-31) pg MCHC 34 (31-36) g/dl RDW 17 H (10.5-15) % Plt Count 9 L* (150-450) 10^3/ul MPV 9 (7.4-10.4) um3 Neut % (Auto) 6.0 L (38-83) % Lymph % (Auto) 73.1 H (25-47) % Mcdonald % (Auto) 11.9 H (1-9) % Eos % (Auto) 9.0 H (0-6) % Baso % (Auto) 0 (0-2) % Absolute Neuts (auto) 0 L* (1.5-7.7) 10^3/ul Absolute Lymphs (auto) 0 L (1.0-4.8) 10^3/ul Absolute Monos (auto) 0 (0-0.8) 10^3/ul Absolute Eos (auto) 0 (0-0.6) 10^3/ul Absolute Basos (auto) 0 (0-0.2) 10^3/ul Absolute Nucleated RBC 0 10^3/ul Nucleated RBC % 0 INR (Anticoag Therapy) (0.89-1.11) APTT (26.0-36.3) seconds Sodium (133-145) mmol/L Potassium (3.5-5.0) mmol/L Chloride (101-111) mmol/L Carbon Dioxide (22-32) mmol/L Anion Gap (2-11) mmol/L BUN (6-24) mg/dL Creatinine (0.67-1.17) mg/dL Est GFR ( Amer) (>60) Est GFR (Non-Af Amer) (>60) BUN/Creatinine Ratio (8-20) Glucose (70-100) mg/dL Lactic Acid 1.2 (0.5-2.0) mmol/L Calcium (8.6-10.3) mg/dL Magnesium (1.9-2.7) mg/dL Total Bilirubin (0.2-1.0) mg/dL AST (13-39) U/L ALT (7-52) U/L Alkaline Phosphatase (34-104) U/L Total Creatine Kinase (10-223) U/L CK-MB (CK-2) (0.6-6.3) ng/mL Troponin I (<0.04) ng/mL C-Reactive Protein (< 5.00) mg/L B-Natriuretic Peptide 49 ( - 100) pg/mL Total Protein (6.4-8.9) g/dL Albumin (3.2-5.2) g/dL Globulin (2-4) g/dL Albumin/Globulin Ratio (1-3) Lipase (11.0-82.0) U/L TSH (0.34-5.60) mcIU/mL Blood Type Antibody Screen Crossmatch 01/03/17 Range/Units 17:30 WBC (3.5-10.8) 10^3/ul RBC (4.0-5.4) 10^6/ul Hgb (14.0-18.0) g/dl Hct (42-52) % MCV (80-94) fL MCH (27-31) pg MCHC (31-36) g/dl RDW (10.5-15) % Plt Count (150-450) 10^3/ul MPV (7.4-10.4) um3 Neut % (Auto) (38-83) % Lymph % (Auto) (25-47) % Mcdonald % (Auto) (1-9) % Eos % (Auto) (0-6) % Baso % (Auto) (0-2) % Absolute Neuts (auto) (1.5-7.7) 10^3/ul Absolute Lymphs (auto) (1.0-4.8) 10^3/ul Absolute Monos (auto) (0-0.8) 10^3/ul Absolute Eos (auto) (0-0.6) 10^3/ul Absolute Basos (auto) (0-0.2) 10^3/ul Absolute Nucleated RBC 10^3/ul Nucleated RBC % INR (Anticoag Therapy) (0.89-1.11) APTT (26.0-36.3) seconds Sodium (133-145) mmol/L Potassium (3.5-5.0) mmol/L Chloride (101-111) mmol/L Carbon Dioxide (22-32) mmol/L Anion Gap (2-11) mmol/L BUN (6-24) mg/dL Creatinine (0.67-1.17) mg/dL Est GFR ( Amer) (>60) Est GFR (Non-Af Amer) (>60) BUN/Creatinine Ratio (8-20) Glucose (70-100) mg/dL Lactic Acid (0.5-2.0) mmol/L Calcium (8.6-10.3) mg/dL Magnesium (1.9-2.7) mg/dL Total Bilirubin (0.2-1.0) mg/dL AST (13-39) U/L ALT (7-52) U/L Alkaline Phosphatase (34-104) U/L Total Creatine Kinase (10-223) U/L CK-MB (CK-2) (0.6-6.3) ng/mL Troponin I (<0.04) ng/mL C-Reactive Protein (< 5.00) mg/L B-Natriuretic Peptide ( - 100) pg/mL Total Protein (6.4-8.9) g/dL Albumin (3.2-5.2) g/dL Globulin (2-4) g/dL Albumin/Globulin Ratio (1-3) Lipase (11.0-82.0) U/L TSH (0.34-5.60) mcIU/mL Blood Type A Positive Antibody Screen Negative Crossmatch See Detail Result Diagrams: 01/03/17 17:30 01/03/17 16:20 Lab Statement: Any lab studies that have been ordered have been reviewed, and results considered in the medical decision making process. - Radiology CXR Xray Interpretation: Positive (See Comments) - IMPRESSION: NO EVIDENCE FOR ACUTE DISEASE. Radiology Interpretation Completed By: Radiologist - EKG 1547 Cardiac Rate: Tachycardia - 113 bpm EKG Rhythm: Sinus Tachycardia Ectopy: PACs EKG Interpretation: Depressed ST in anterior leads Re-Evaluation - Re-Evaluation First Eval Re-Evaluation Time: 17:51 Course/Dx Assessment/Plan: DR PARRA SAW PATIENT IN ED AND ADMITTED HIM. DISCUSSED RESULTS WITH PATIENT/FAMILY. STARTED CEFEPIME FOR NEUTROPENIA AND GAVE IVF. TYPED AND SCREENED IN ED. DR PARRA ORDERED BLOOD TRANSFUSION. - Diagnoses Provider Diagnoses: Syncope, Pancytopenia, Hypotension - Physician Notifications Discussed Care Of Patient With: Dr. Parra (Hematology) @ [id number] - allowed implimentation of antibiotics and will come to admit pt - Critical Care Time Critical Care Time: 30-74 min Discharge - Discharge Plan Condition: Guarded Disposition: ADMITTED TO [facility] The documentation as recorded by the Linda sykes Alok accurately reflects the service I personally performed and the decisions made by me, Wilfrido Powell MD.
[2017-01-03] MEDS: NS 0.9% w/ 40 Meq KCL 1000 ML* 1,000 ML IV SCH (20:12)
[2017-01-03 20:13] LABS: Hematocrit 20 % (42-52); Hemoglobin 6.6 g/dl (14.0-18.0); Mean Corpuscular HGB Conc 33 g/dl (31-36); Mean Corpuscular Hemoglobin 29 pg (27-31); Mean Corpuscular Volume 88 fL (80-94); Mean Platelet Volume 9 um3 (7.4-10.4); Red Blood Count 2.25 10^6/ul (4.0-5.4); Red Cell Distribution Width 17 % (10.5-15); White Blood Count 0 10^3/ul (3.5-10.8)
[2017-01-03 20:14] LABS: Comments Flag Yes
[2017-01-03 20:18] LABS: Albumin 2.4 g/dL (3.2-5.2); Calcium 7.3 mg/dL (8.6-10.3); EGFR African American 102.6 (>60); EGFR Non-African American 79.8 (>60); Globulin 1.9 g/dL (2-4); Magnesium 1.8 mg/dL (1.9-2.7); Total Bilirubin 0.7 mg/dL (0.2-1.0); Total Protein 4.3 g/dL (6.4-8.9)
[2017-01-03 20:19] LABS: Potassium 2.6 mmol/L (3.5-5.0)
[2017-01-03 20:31] LABS: Add Diff/Slide Review? Slide Review Added
[2017-01-03] MEDS: Potassium Chloride LIQUID* 20 MEQ PACKET PO SCH (21:18)
[2017-01-03] MEDS: traZODone TAB* 50 MG TAB PO SCH (21:18)
[2017-01-03] MEDS: Senna TAB PO SCH (21:19)
[2017-01-03] MEDS: Morphine TAB Extended Release (*) 15 MG TAB.ER PO SCH (21:20)
[2017-01-03] MEDS: FILGRASTIM-SNDZ* 480 MCG/0.8 ML SYRINGE SUBCUT SCH (21:21)
[2017-01-04] MEDS: Cefepime(*) 2 GM in NS 0.9% 50 ML* 50 ML IVPB SCH ×3 (01:57→18:13)
[2017-01-04] MEDS: Potassium Chloride LIQUID* 20 MEQ PACKET PO SCH ×2 (01:57→08:24)
[2017-01-04] MEDS: NS 0.9% w/ 40 Meq KCL 1000 ML* 1,000 ML IV SCH ×3 (04:35→23:42)
[2017-01-04] MEDS: Morphine TAB Extended Release (*) 15 MG TAB.ER PO SCH ×2 (08:25→20:26)
[2017-01-04] MEDS: Citalopram TAB* 20 MG PO SCH (08:25)
[2017-01-04] MEDS: Allopurinol TAB* 300 MG PO SCH (08:25)
[2017-01-04] MEDS: FILGRASTIM-SNDZ* 480 MCG/0.8 ML SYRINGE SUBCUT SCH (08:27)
[2017-01-04] MEDS: Senna TAB PO SCH (08:32)
[2017-01-04] MEDS ORDERED: Senna TAB PO PRN (09:18)
[2017-01-04 09:49] LABS: Albumin 2.3 g/dL (3.2-5.2); BUN/Creatinine Ratio 41.1 (8-20); Calcium 7.5 mg/dL (8.6-10.3); EGFR African American 193.4 (>60); EGFR Non-African American 150.4 (>60); Globulin 2.1 g/dL (2-4); Magnesium 1.9 mg/dL (1.9-2.7); Total Bilirubin 2.1 mg/dL (0.2-1.0); Total Protein 4.4 g/dL (6.4-8.9)
[2017-01-04 09:51] LABS: Potassium 2.6 mmol/L (3.5-5.0)
[2017-01-04 10:12] LABS: Hematocrit 22 % (42-52); Hemoglobin 7.3 g/dl (14.0-18.0); Mean Corpuscular HGB Conc 34 g/dl (31-36); Mean Corpuscular Hemoglobin 29 pg (27-31); Mean Corpuscular Volume 87 fL (80-94); Mean Platelet Volume 8 um3 (7.4-10.4); Red Blood Count 2.47 10^6/ul (4.0-5.4); Red Cell Distribution Width 16 % (10.5-15); White Blood Count 0 10^3/ul (3.5-10.8)
[2017-01-04 10:18] LABS: Add Diff/Slide Review? Slide Review Added; Comments Flag Yes
[2017-01-04] MEDS: KCL 20 MEQ/100 ML IVPREMIX* 20 MEQ/100 ML BAG IV SCH ×2 (10:30→13:52)
[2017-01-04 11:50] LABS: Urine Bilirubin Negative (Negative); Urine Glucose Negative (Negative); Urine Nitrite Negative (Negative)
[2017-01-04] MEDS ORDERED: Acetaminophen TAB* 325 MG PO ONE (11:55)
[2017-01-04] MEDS ORDERED: diPHENhydraMINE PO* 25 MG PO ONE (11:56)
[2017-01-04] MEDS: traZODone TAB* 50 MG TAB PO SCH (20:26)
[2017-01-05] MEDS: Cefepime(*) 2 GM in NS 0.9% 50 ML* 50 ML IVPB SCH ×3 (02:52→16:55)
[2017-01-05] MEDS: Morphine TAB Extended Release (*) 15 MG TAB.ER PO SCH ×2 (08:02→23:26)
[2017-01-05] MEDS: Allopurinol TAB* 300 MG PO SCH (08:02)
[2017-01-05] MEDS: Citalopram TAB* 20 MG PO SCH (08:02)
[2017-01-05] MEDS: FILGRASTIM-SNDZ* 480 MCG/0.8 ML SYRINGE SUBCUT SCH (08:03)
[2017-01-05] MEDS: NS 0.9% w/ 40 Meq KCL 1000 ML* 1,000 ML IV SCH (08:10)
[2017-01-05 08:27] LABS: Hematocrit 23 % (42-52); Mean Corpuscular HGB Conc 34 g/dl (31-36); Mean Corpuscular Hemoglobin 30 pg (27-31); Mean Corpuscular Volume 86 fL (80-94); Mean Platelet Volume 8 um3 (7.4-10.4); Red Blood Count 2.71 10^6/ul (4.0-5.4); Red Cell Distribution Width 16 % (10.5-15); White Blood Count 0 10^3/ul (3.5-10.8)
[2017-01-05 08:28] LABS: Comments Flag Yes
[2017-01-05 08:31] LABS: Add Diff/Slide Review? Slide Review Added
[2017-01-05 08:36] LABS: Albumin 2.1 g/dL (3.2-5.2); BUN/Creatinine Ratio 42.5 (8-20); Calcium 7.5 mg/dL (8.6-10.3); EGFR African American 285.2 (>60); EGFR Non-African American 221.7 (>60); Globulin 2.1 g/dL (2-4); Total Bilirubin 0.9 mg/dL (0.2-1.0); Total Protein 4.2 g/dL (6.4-8.9)
[2017-01-05 08:49] LABS: Potassium 2.3 mmol/L (3.5-5.0)
--- NOTE | 2017-01-05 08:58 | PN ---
Progress Note - Progress Note SOAP: Subjective: []Feels a little better. Not eating and no hungry. Diarrhea continues. No fevers. Very weak and not up at all. Urine is dark but no pain with urination. Acetaminophen (Tylenol Tab*) 650 mg PO Q4H PRN PRN Reason: FEVER/PAIN Allopurinol (Zyloprim Tab*) 300 mg PO DAILY [facility] Last Admin: 01/05/17 08:02 Dose: 300 mg Citalopram Hydrobromide (Celexa Tab*) 20 mg PO DAILY [facility] Last Admin: 01/05/17 08:02 Dose: 20 mg Diphenoxylate HCl/Atropine (Lomotil Tab*) 1 tab PO BID PRN PRN Reason: DIARRHEA Last Admin: 01/04/17 08:25 Dose: 1 tab Filgrastim-Sndz (Zarxio*) 480 mcg SUBCUT DAILY [facility] Stop: 01/07/17 23:59 Last Admin: 01/05/17 08:03 Dose: 480 mcg Cefepime HCl 2 gm/ Sodium (Chloride) 50 mls @ 100 mls/hr IVPB Q8H [facility] Last Admin: 01/05/17 02:52 Dose: 100 mls/hr Potassium Chloride/Sodium Chloride (Ns 0.9% W/ 40 Meq Kcl 1000 Ml*) 1,000 mls @ 125 mls/hr IV PER RATE [facility] Last Admin: 01/05/17 08:10 Dose: 125 mls/hr Morphine Sulfate (Ms Contin(*)) 15 mg PO BID [facility] Last Admin: 01/05/17 08:02 Dose: 15 mg Multi-Ingredient Mouthwash/Gargle (Miracle Mw-Jerrod/Nyst/Tetrac*) 5 ml SWISH SPIT Q6H PRN PRN Reason: MOUTH SORES Ondansetron HCl (Zofran Inj*) 4 mg IV Q4H PRN PRN Reason: NAUSEA/VOMITING Oxycodone/Acetaminophen (Percocet 5/325 Tab*) 1 tab PO Q4H PRN PRN Reason: Pain Senna (Senokot Tab*) 1 tab PO BID PRN PRN Reason: CONSTIPATION Trazodone HCl (Desyrel Tab*) 50 mg PO BEDTIME [facility] Last Admin: 01/04/17 20:26 Dose: 50 mg Objective: [] Vital Signs Temp Pulse Resp BP Pulse Ox 97.4 F 97 16 135/76 96 01/05/17 05:01 01/05/17 05:01 01/05/17 08:02 01/05/17 05:01 01/05/17 05:01 HEENT - Mucous dry, no lesions. CTA RRR S1S2 +BS and non tender Ext warm, good pulses, no edema. Assessment: []56 year old with marked cytopenias after does intense chemotherapy. Plan: []1. Neutropenia. Expect continued neutropenia through mid to end of next week. He is on Cefepime and will monitor for fever, add Vanco and anti fungal coverage for fevers. Complete course of Neupogen. 2. Anemia. Tx for Hgb < 8.0 3. Plts, Tx for Plts < 10,000 4. FEN. Will continue potassium and NS, Mg has been fine. Given dark urine, increase IVF to 150 cc per hr. Additional KCL based on labs today. 5. Diarrhea. Will increase lomotil to QID
[2017-01-05] MEDS ORDERED: NS 0.9% w/ 40 Meq KCL 1000 ML* 1,000 ML IV SCH (08:59)
[2017-01-05] MEDS ORDERED: Potassium Chloride LIQUID* 20 MEQ PACKET PO SCH (09:00)
[2017-01-05] MEDS ORDERED: Acetaminophen TAB* 325 MG PO ONE (09:04)
[2017-01-05] MEDS: KCL 20 MEQ/100 ML IVPREMIX* 20 MEQ/100 ML BAG IV SCH ×6 (09:55→23:10)
[2017-01-05] MEDS: Diphenoxylat/Atrop 2.5-0.025M* 1 TAB PO SCH ×4 (10:01→23:29)
[2017-01-05 16:53] LABS: BUN/Creatinine Ratio 48.5 (8-20); Calcium 7.6 mg/dL (8.6-10.3); EGFR Non-African American 276.8 (>60)
[2017-01-05 16:55] LABS: Potassium 2.3 mmol/L (3.5-5.0)
[2017-01-05] MEDS: traZODone TAB* 50 MG TAB PO SCH (23:26)
[2017-01-06 02:22] LABS: Mean Platelet Volume 8 um3 (7.4-10.4)
[2017-01-06 02:23] LABS: Comments Flag Yes
[2017-01-06] MEDS: KCL 20 MEQ/100 ML IVPREMIX* 20 MEQ/100 ML BAG IV SCH ×8 (02:36→22:01)
[2017-01-06] MEDS: Cefepime(*) 2 GM in NS 0.9% 50 ML* 50 ML IVPB SCH ×3 (02:42→17:43)
[2017-01-06 05:56] LABS: Hematocrit 26 % (42-52); Hemoglobin 8.9 g/dl (14.0-18.0); Mean Corpuscular HGB Conc 34 g/dl (31-36); Mean Corpuscular Hemoglobin 29 pg (27-31); Mean Corpuscular Volume 85 fL (80-94); Mean Platelet Volume 8 um3 (7.4-10.4); Red Blood Count 3.03 10^6/ul (4.0-5.4); Red Cell Distribution Width 16 % (10.5-15); White Blood Count 0.1 10^3/ul (3.5-10.8)
[2017-01-06 06:08] LABS: Add Diff/Slide Review? Slide Review Added; Comments Flag Yes
[2017-01-06 06:14] LABS: BUN/Creatinine Ratio 42.1 (8-20); Calcium 7.6 mg/dL (8.6-10.3); EGFR African American 302.5 (>60); EGFR Non-African American 235.2 (>60); Globulin 2.1 g/dL (2-4); Total Bilirubin 1.3 mg/dL (0.2-1.0); Total Protein 4.1 g/dL (6.4-8.9)
[2017-01-06 06:18] LABS: Potassium 2.3 mmol/L (3.5-5.0)
--- NOTE | 2017-01-06 08:31 | PN ---
Progress Note - Progress Note SOAP: Subjective: []Overall stable, feels a little better today. Ate some jellow but not taking much po. Has dry mouth. Has some abdominal pain. [place] like hiccups but not hiccuping. No fevers. Still some diarrhea, 3 BM yesterday. Not out of bed at all. Acetaminophen (Tylenol Tab*) 650 mg PO Q4H PRN PRN Reason: FEVER/PAIN Allopurinol (Zyloprim Tab*) 300 mg PO DAILY [facility] Last Admin: 01/05/17 08:02 Dose: 300 mg Citalopram Hydrobromide (Celexa Tab*) 20 mg PO DAILY [facility] Last Admin: 01/05/17 08:02 Dose: 20 mg Diphenoxylate HCl/Atropine (Lomotil Tab*) 1 tab PO QID [facility] Last Admin: 01/05/17 23:29 Dose: 1 tab Filgrastim-Sndz (Zarxio*) 480 mcg SUBCUT DAILY [facility] Stop: 01/07/17 23:59 Last Admin: 01/05/17 08:03 Dose: 480 mcg Cefepime HCl 2 gm/ Sodium (Chloride) 50 mls @ 100 mls/hr IVPB Q8H [facility] Last Admin: 01/06/17 02:42 Dose: 100 mls/hr Potassium Chloride/Sodium Chloride (Ns 0.9% W/ 40 Meq Kcl 1000 Ml*) 1,000 mls @ 150 mls/hr IV PER RATE [facility] Last Admin: 01/06/17 02:42 Dose: 150 mls/hr Potassium Chloride (Potassium Chloride 20 Meq/100 Ml Ivpremix*) 20 meq in 100 mls @ 100 mls/hr IV Q1HR [facility] Stop: 01/06/17 12:59 Morphine Sulfate (Ms Contin(*)) 15 mg PO BID [facility] Last Admin: 01/05/17 23:26 Dose: 15 mg Multi-Ingredient Mouthwash/Gargle (Miracle Mw-Jerrod/Nyst/Tetrac*) 5 ml SWISH SPIT Q6H PRN PRN Reason: MOUTH SORES Ondansetron HCl (Zofran Inj*) 4 mg IV Q4H PRN PRN Reason: NAUSEA/VOMITING Oxycodone/Acetaminophen (Percocet 5/325 Tab*) 1 tab PO Q4H PRN PRN Reason: Pain Trazodone HCl (Desyrel Tab*) 50 mg PO BEDTIME [facility] Last Admin: 01/05/17 23:26 Dose: 50 mg Objective: [] Vital Signs Temp Pulse Resp BP Pulse Ox 98.2 F 107 20 144/83 97 01/06/17 05:12 01/06/17 05:12 01/06/17 05:12 01/06/17 05:12 01/06/17 05:12 HEENT - Mucous dry, no lesions. CTA RRR S1S2 +BS and non tender Ext warm, good pulses, no edema. Assessment: []56 year old with marked cytopenias after does intense chemotherapy. Low grade fever an now on Cefepime, blood cultures +1 bottle Strep species but likely contaminant. Course complicated by marked hypokalemia. Plan: []1. Neutropenia. Expect continued neutropenia through mid to end of next week. He is on Cefepime and will monitor for fever, add Vanco and anti fungal coverage for fevers. Completed course of Neupogen. 2. Anemia. Tx for Hgb < 8.0. He is 8.9 today and will follow. 3. Plts, Tx for Plts < 10,000 4. FEN. Transfer to ICU for potassium infusions. - Continue NS, will hold KCL in bag while getting K runs - KCL 20 sean per hr x 4 hrs and then re-check at 1300. Give additional potassium in afternoon. - Encourage PO. 5. Diarrhea. Better with lomotil to QID
[2017-01-06] MEDS ORDERED: NS 0.9% 1000 ML* 1,000 ML IV SCH (08:45)
[2017-01-06] MEDS ORDERED: KCL 20 MEQ/100 ML IVPREMIX* 20 MEQ/100 ML BAG IV SCH (09:00)
[2017-01-06] MEDS: Citalopram TAB* 20 MG PO SCH (09:34)
[2017-01-06] MEDS: Morphine TAB Extended Release (*) 15 MG TAB.ER PO SCH ×2 (09:34→21:00)
[2017-01-06] MEDS: Pantoprazole IV* 40 MG IV SCH (09:35)
--- NOTE | 2017-01-06 10:18 | RAD ---
Indication: Syncope. Single frontal view of the chest performed at 1005 hours was reviewed. Comparison is made with previous exam dated January 03, 2017.. No mediastinal shift is noted. Heart is of normal size and configuration. Lung lamar appear clear. Under the left hemidiaphragm there is a large air collection likely representing markedly distended stomach. IMPRESSION: NO ACTIVE CARDIOPULMONARY DISEASE IS NOTED. AIR IN THE LEFT ABDOMEN LIKELY REPRESENTS A MARKEDLY DISTENDED STOMACH.
[2017-01-06] MEDS: Diphenoxylat/Atrop 2.5-0.025M* 1 TAB PO SCH ×4 (10:26→21:00)
[2017-01-06] MEDS: FILGRASTIM-SNDZ* 480 MCG/0.8 ML SYRINGE SUBCUT SCH (10:26)
[2017-01-06] MEDS: oxyCODONE/Acetamin 5/325 MG* TAB PO PRN (10:58)
[2017-01-06] MEDS: Allopurinol TAB* 300 MG PO SCH (10:59)
[2017-01-06 14:19] LABS: Calcium 7.8 mg/dL (8.6-10.3); EGFR African American 293.6 (>60); EGFR Non-African American 228.3 (>60)
[2017-01-06 14:29] LABS: Potassium 2.7 mmol/L (3.5-5.0)
[2017-01-06] MEDS: KCL 20 MEQ/100 ML IVPREMIX* 100 ML BAG IV SCH ×4 (14:55→17:43)
[2017-01-06] MEDS: NS 0.9% 1000 ML* 1,000 ML IV SCH (19:15)
[2017-01-06 19:51] LABS: Calcium 7.7 mg/dL (8.6-10.3); EGFR African American 293.6 (>60); EGFR Non-African American 228.3 (>60); Potassium 2.8 mmol/L (3.5-5.0)
[2017-01-06] MEDS: traZODone TAB* 50 MG TAB PO SCH (21:00)
[2017-01-06] MEDS ORDERED: KCL 20 MEQ/100 ML IVPREMIX* 20 MEQ/100 ML BAG ONE (21:54)
[2017-01-07] MEDS: KCL 20 MEQ/100 ML IVPREMIX* 20 MEQ/100 ML BAG IV SCH ×12 (00:02→21:56)
[2017-01-07] MEDS: Cefepime(*) 2 GM in NS 0.9% 50 ML* 50 ML IVPB SCH ×3 (02:05→17:23)
[2017-01-07] MEDS: NS 0.9% 1000 ML* 1,000 ML IV SCH (04:35)
[2017-01-07 06:02] LABS: Hematocrit 26 % (42-52); Hemoglobin 8.9 g/dl (14.0-18.0); Mean Corpuscular HGB Conc 34 g/dl (31-36); Mean Corpuscular Hemoglobin 30 pg (27-31); Mean Corpuscular Volume 86 fL (80-94); Mean Platelet Volume 9 um3 (7.4-10.4); Red Blood Count 3.02 10^6/ul (4.0-5.4); Red Cell Distribution Width 17 % (10.5-15); White Blood Count 0.3 10^3/ul (3.5-10.8)
[2017-01-07 06:05] LABS: Comments Flag Yes
[2017-01-07 06:08] LABS: Add Diff/Slide Review? Manual Diff Added
[2017-01-07 06:10] LABS: Albumin 1.8 g/dL (3.2-5.2); BUN/Creatinine Ratio 48.5 (8-20); Calcium 7.5 mg/dL (8.6-10.3); EGFR Non-African American 276.8 (>60); Globulin 1.2 g/dL (2-4); Magnesium 1.7 mg/dL (1.9-2.7); Potassium 2.8 mmol/L (3.5-5.0)
[2017-01-07 06:56] LABS: Immature Granulocytes 11 % (0-9); Metamyelocytes % 1 % (0-2); Myelocytes % 1 % (0-1); Neutrophil % 47 % (38-83); Reactive Lymph % 6 % (0-6)
[2017-01-07 06:57] LABS: Burr Cells 1+; Tear Drop Cells 1+
[2017-01-07] MEDS: Citalopram TAB* 20 MG PO SCH (09:38)
[2017-01-07] MEDS: Allopurinol TAB* 300 MG PO SCH (09:38)
[2017-01-07] MEDS: Morphine TAB Extended Release (*) 15 MG TAB.ER PO SCH ×2 (09:38→20:45)
[2017-01-07] MEDS: Diphenoxylat/Atrop 2.5-0.025M* 1 TAB PO SCH ×4 (09:38→20:45)
[2017-01-07] MEDS: Pantoprazole IV* 40 MG IV SCH (09:38)
[2017-01-07] MEDS ORDERED: Magnesium Sulf 4 GM/100 ML IV* 4,000 MG/100 ML BAG IVPB ONE (10:41)
--- NOTE | 2017-01-07 10:41 | PN ---
Progress Note - Progress Note SOAP: Subjective: []Not feeling any better. Has continued diarrhea. Abdominal pain is the same. Eating a little but not much. No SOB but not moving much. No fevers. Acetaminophen (Tylenol Tab*) 650 mg PO Q4H PRN PRN Reason: FEVER/PAIN Allopurinol (Zyloprim Tab*) 300 mg PO DAILY [facility] Last Admin: 01/07/17 09:38 Dose: 300 mg Citalopram Hydrobromide (Celexa Tab*) 20 mg PO DAILY [facility] Last Admin: 01/07/17 09:38 Dose: 20 mg Diphenoxylate HCl/Atropine (Lomotil Tab*) 1 tab PO QID [facility] Last Admin: 01/07/17 09:38 Dose: 1 tab Filgrastim-Sndz (Zarxio*) 480 mcg SUBCUT DAILY [facility] Stop: 01/07/17 23:59 Last Admin: 01/06/17 10:26 Dose: 480 mcg Cefepime HCl 2 gm/ Sodium (Chloride) 50 mls @ 100 mls/hr IVPB Q8H [facility] Last Admin: 01/07/17 09:39 Dose: 100 mls/hr Sodium Chloride (Ns 0.9% 1000 Ml*) 1,000 mls @ 100 mls/hr IV PER RATE [facility] Last Admin: 01/07/17 04:35 Dose: 100 mls/hr Potassium Chloride (Potassium Chloride 20 Meq/100 Ml Ivpremix*) 20 meq in 100 mls @ 50 mls/hr IV Q2H [facility] Stop: 01/07/17 17:59 Last Admin: 01/07/17 10:17 Dose: 50 mls/hr Morphine Sulfate (Ms Contin(*)) 15 mg PO BID [facility] Last Admin: 01/07/17 09:38 Dose: 15 mg Multi-Ingredient Mouthwash/Gargle (Miracle Mw-Jerrod/Nyst/Tetrac*) 5 ml SWISH SPIT Q6H PRN PRN Reason: MOUTH SORES Ondansetron HCl (Zofran Inj*) 4 mg IV Q4H PRN PRN Reason: NAUSEA/VOMITING Oxycodone/Acetaminophen (Percocet 5/325 Tab*) 1 tab PO Q4H PRN PRN Reason: Pain Last Admin: 01/06/17 10:58 Dose: 1 tab Pantoprazole Sodium (Protonix Iv*) 40 mg IV DAILY [facility] Last Admin: 01/07/17 09:38 Dose: 40 mg Trazodone HCl (Desyrel Tab*) 50 mg PO BEDTIME [facility] Last Admin: 01/06/17 21:00 Dose: 50 mg Objective: [] Vital Signs Temp Pulse Resp BP Pulse Ox 97.3 F 108 22 127/70 97 01/07/17 07:56 01/07/17 10:00 01/07/17 10:00 01/07/17 10:00 01/07/17 10:00 HEENT - Mucous dry, no lesions. Pale CTA RRR S1S2 +BS and non tender Ext warm, good pulses, no edema. Assessment: []56 year old with marked cytopenias after does intense chemotherapy. Plan: []1. Neutropenia. Has some improvment in WBC, total to 0.3. Will continue Neupogen until increased ANC. 2. Anemia. Tx for Hgb < 8.0 3. Plts, Tx for Plts < 10,000 4. GI. Abdominal distension, diaharrea, has bowl sounds. Suspect neutropenic colitis. Will check ABD XR and follow. Continue Lomotil for time being, will decrease to bid. 4. FEN. - KCL 240 sean yesterday, continue aggressive repletion. Check P-3 at 1300. - Mg decreased, 2 gm IV - Some fluid overload, hold NS. Add Aldactone 25 mg po daily 5. Continue in ICU
[2017-01-07] MEDS: FILGRASTIM-SNDZ* 480 MCG/0.8 ML SYRINGE SUBCUT SCH (10:47)
[2017-01-07 16:29] LABS: Mean Platelet Volume 6 um3 (7.4-10.4)
[2017-01-07 16:32] LABS: Comments Flag Yes
[2017-01-07 17:02] LABS: BUN/Creatinine Ratio 42.9 (8-20); Calcium 7.6 mg/dL (8.6-10.3); EGFR African American 332.7 (>60); EGFR Non-African American 258.7 (>60); Potassium 3.3 mmol/L (3.5-5.0)
[2017-01-07] MEDS: traZODone TAB* 50 MG TAB PO SCH (20:45)
[2017-01-08] MEDS: Cefepime(*) 2 GM in NS 0.9% 50 ML* 50 ML IVPB SCH ×3 (01:50→16:51)
[2017-01-08] MEDS: oxyCODONE/Acetamin 5/325 MG* TAB PO PRN (01:56)
[2017-01-08 06:23] LABS: Hematocrit 23 % (42-52); Mean Corpuscular HGB Conc 35 g/dl (31-36); Mean Corpuscular Hemoglobin 29 pg (27-31); Mean Corpuscular Volume 85 fL (80-94); Mean Platelet Volume 8 um3 (7.4-10.4); Red Blood Count 2.73 10^6/ul (4.0-5.4); Red Cell Distribution Width 17 % (10.5-15); White Blood Count 0.9 10^3/ul (3.5-10.8)
[2017-01-08 06:25] LABS: Add Diff/Slide Review? Manual Diff Added; Comments Flag Yes
[2017-01-08 07:01] LABS: Immature Granulocytes 8 % (0-9); Myelocytes % 1 % (0-1); Neutrophil % 70 % (38-83); Reactive Lymph % 6 % (0-6)
[2017-01-08 07:02] LABS: Hypochromasia 1+; Toxic Granulation 2+
[2017-01-08 07:08] LABS: Albumin 1.9 g/dL (3.2-5.2); BUN/Creatinine Ratio 45.7 (8-20); Calcium 7.2 mg/dL (8.6-10.3); EGFR African American 332.7 (>60); EGFR Non-African American 258.7 (>60); Potassium 3.2 mmol/L (3.5-5.0); Total Bilirubin 1.1 mg/dL (0.2-1.0); Total Protein 3.9 g/dL (6.4-8.9)
[2017-01-08] MEDS: Citalopram TAB* 20 MG PO SCH (08:04)
[2017-01-08] MEDS: Allopurinol TAB* 300 MG PO SCH (08:04)
[2017-01-08] MEDS: Pantoprazole IV* 40 MG IV SCH (08:04)
[2017-01-08] MEDS: Morphine TAB Extended Release (*) 15 MG TAB.ER PO SCH ×2 (08:04→19:53)
[2017-01-08] MEDS: Diphenoxylat/Atrop 2.5-0.025M* 1 TAB PO SCH ×4 (08:24→19:54)
[2017-01-08] MEDS ORDERED: Magnesium Sulfate 2 GM IV* 2 GM/50 ML BAG IVPB ONE (08:52)
[2017-01-08] MEDS: KCL 20 MEQ/100 ML IVPREMIX* 20 MEQ/100 ML BAG IV SCH ×3 (10:42→14:17)
[2017-01-08] MEDS: FILGRASTIM-SNDZ* 480 MCG/0.8 ML SYRINGE SUBCUT SCH (11:19)
[2017-01-08 16:07] LABS: BUN/Creatinine Ratio 46.2 (8-20); Calcium 7.5 mg/dL (8.6-10.3); EGFR African American 293.6 (>60); EGFR Non-African American 228.3 (>60); Potassium 4.2 mmol/L (3.5-5.0)
[2017-01-08] MEDS: traZODone TAB* 50 MG TAB PO SCH (19:54)
[2017-01-09] MEDS: Cefepime(*) 2 GM in NS 0.9% 50 ML* 50 ML IVPB SCH ×3 (00:59→18:04)
[2017-01-09 05:23] LABS: Hematocrit 22 % (42-52); Hemoglobin 7.3 g/dl (14.0-18.0); Mean Corpuscular HGB Conc 34 g/dl (31-36); Mean Corpuscular Hemoglobin 29 pg (27-31); Mean Corpuscular Volume 86 fL (80-94); Mean Platelet Volume 9 um3 (7.4-10.4); Red Blood Count 2.51 10^6/ul (4.0-5.4); Red Cell Distribution Width 16 % (10.5-15)
[2017-01-09 05:25] LABS: Comments Flag Yes
[2017-01-09 05:26] LABS: White Blood Count 0.9 10^3/ul (3.5-10.8)
[2017-01-09 05:29] LABS: Add Diff/Slide Review? Slide Review Added; BUN/Creatinine Ratio 46.9 (8-20); Calcium 7.1 mg/dL (8.6-10.3); EGFR African American 368.9 (>60); EGFR Non-African American 286.9 (>60); Potassium 3.5 mmol/L (3.5-5.0)
[2017-01-09 06:11] LABS: Immature Granulocytes 13 % (0-9); Metamyelocytes % 2 % (0-2); Neutrophil % 63 % (38-83)
[2017-01-09 06:12] LABS: Tear Drop Cells 1+; Toxic Granulation 1+
[2017-01-09] MEDS: Pantoprazole IV* 40 MG IV SCH (10:01)
[2017-01-09] MEDS: Diphenoxylat/Atrop 2.5-0.025M* 1 TAB PO SCH ×4 (10:02→19:42)
[2017-01-09] MEDS: Citalopram TAB* 20 MG PO SCH (10:04)
[2017-01-09] MEDS: Morphine TAB Extended Release (*) 15 MG TAB.ER PO SCH ×2 (10:04→19:42)
[2017-01-09] MEDS: Allopurinol TAB* 300 MG PO SCH (10:06)
[2017-01-09] MEDS ORDERED: Miracle MW-Ben/Nyst/Tetrac SWISH SPIT SCH (10:32)
[2017-01-09] MEDS: FILGRASTIM-SNDZ* 480 MCG/0.8 ML SYRINGE SUBCUT SCH (10:39)
--- NOTE | 2017-01-09 10:56 | PN ---
Progress Note - Progress Note SOAP: Subjective: []Feeling better then yesterday and cont.'s to feel better then admission date, however still very tired. SOB with amb. to bathroom. Still having loose stools , but less cramping. Right arm became swollen yesterday. Thought maybe it was r/t fluids. Denies pain, but no improvement overnight. Back pain cont.'s, long standing and mostly controlled with meds. Denies chest pain and pressure. Appetite improving but now has developed mouth sores which are painful. Medications: Acetaminophen (Tylenol Tab*) 650 mg PO Q4H PRN PRN Reason: FEVER/PAIN Allopurinol (Zyloprim Tab*) 300 mg PO DAILY [facility] Last Admin: 01/08/17 08:04 Dose: 300 mg Citalopram Hydrobromide (Celexa Tab*) 20 mg PO DAILY [facility] Last Admin: 01/08/17 08:04 Dose: 20 mg Diphenoxylate HCl/Atropine (Lomotil Tab*) 1 tab PO QID [facility] Last Admin: 01/08/17 19:54 Dose: 1 tab Filgrastim-Sndz (Zarxio*) 480 mcg SUBCUT DAILY [facility] Stop: 01/11/17 23:59 Last Admin: 01/08/17 11:19 Dose: 480 mcg Cefepime HCl 2 gm/ Sodium (Chloride) 50 mls @ 100 mls/hr IVPB Q8H [facility] Last Admin: 01/09/17 00:59 Dose: 100 mls/hr Morphine Sulfate (Ms Contin(*)) 15 mg PO BID [facility] Last Admin: 01/08/17 19:53 Dose: 15 mg Multi-Ingredient Mouthwash/Gargle (Miracle Mw-Jerrod/Nyst/Tetrac*) 5 ml SWISH SPIT Q6H PRN PRN Reason: Pain Ondansetron HCl (Zofran Inj*) 4 mg IV Q4H PRN PRN Reason: NAUSEA/VOMITING Oxycodone/Acetaminophen (Percocet 5/325 Tab*) 1 tab PO Q4H PRN PRN Reason: Pain Last Admin: 01/08/17 01:56 Dose: 1 tab Pantoprazole Sodium (Protonix Iv*) 40 mg IV DAILY [facility] Last Admin: 01/08/17 08:04 Dose: 40 mg Trazodone HCl (Desyrel Tab*) 50 mg PO BEDTIME [facility] Last Admin: 01/08/17 19:54 Dose: 50 mg Objective: [] Vital Signs Temp Pulse Resp BP Pulse Ox 97.8 F 93 16 110/67 95 01/09/17 07:47 01/09/17 07:47 01/09/17 08:02 01/09/17 07:47 01/09/17 07:47 A&Ox3, EOMI, [place], ambulating slowly with steady gait, neuro grossly non-focal HRR, SR on tele, though tachycardic with exertion (rate up to 150s), occ. ectopy LS clear bilat., resp. even, slightly labored following exertion ++BS, abd. soft and non-tender +1 edema right ankle, minimal left ankle +2 edema right arm, left none No petechiae or evidence of bleeding Mucositis Laboratory Results - last 24 hr 01/08/17 01/09/17 01/09/17 15:30 04:55 04:55 WBC 0.9 L RBC 2.51 L Hgb 7.3 L Hct 22 L MCV 86 MCH 29 MCHC 34 RDW 16 H Plt Count 7 L* MPV 9 Immature Gran % (Auto) 13 H Neut % (Auto) 82.6 Lymph % (Auto) 6.5 L [place] % (Auto) 10.6 H Eos % (Auto) 0.2 Baso % (Auto) 0.1 Absolute Neuts (auto) 0.8 L Absolute Lymphs (auto) 0.1 L Absolute Monos (auto) 0.1 Absolute Eos (auto) 0 Absolute Basos (auto) 0 Absolute Nucleated RBC 0 Neutrophils % 63 Band Neutrophils % 11 H Lymphocytes % 12 L Monocytes % 12 Metamyelocytes % 2 Nucleated RBC % 0.2 Nucleated RBCs/100 WBC 1 H Toxic Granulation 1+ Normal RBC Morphology Not Reportable Tear Drop Cells 1+ Sodium 134 134 Potassium 4.2 3.5 Chloride 111 109 Carbon Dioxide 18 L 21 L Anion Gap 5 4 BUN 18 15 Creatinine 0.39 L 0.32 L Est GFR ( Amer) 293.6 368.9 Est GFR (Non-Af Amer) 228.3 286.9 BUN/Creatinine Ratio 46.2 H 46.9 H Glucose 116 H 107 H Calcium 7.5 L 7.1 L Crossmatch Assessment: []56 yo with 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 Plan: []1. SIRS: present on admission (hypotension, tachycardia, and neutropenia), resolving, cultures negative, cont. tele and abx until ANC >1000 2. Pancytopenia: chemotherapy induced -- Neutropenia: slowly improving with neupogen, will cont. until >3000 -- Anemia: transfuse 1 unit today (hmg 7.3 and symptomatic), plan to transfuse hmg<7.5 -- Thrombocytopenia: transfuse single donor pack today, plan to transfuse <10 or bleeding 3. Diarrhea: 2/2 neutropenic colitis, slowly improving with lomotil 4. Hypokalemia: 2/2 diarrhea, stable, but will initiate PO replacement, goal > 3.5 5. Mucositis: chemotherapy induced, change MMW to scheduled, soft diet may help 6. Edema: check doppler of right arm, though likely fluid overload 7. Lymphoma: negative bone marrow and improvement on PET /p C3, hypocellular bone marrow likely represents myelosuppressive chemotherapy, goal of completing 6 cycles da-REPOCH (would be due 01/14, dependent on counts - will require dose decrease) and IT methotrexate (started with C2) 8. Chronic Back Pain: cont. pain meds, no changes today
--- NOTE | 2017-01-09 12:49 | RAD ---
HISTORY: Swelling COMPARISONS: None relevant TECHNIQUE: Multiple transverse and longitudinal ultrasound images were obtained of the right upper extremity from the level of the internal jugular vein inferiorly through to the infra-cubital veins using grayscale, color Doppler, and spectral Doppler imaging with and without compression and with augmentation. Comparison images were obtained of the contralateral internal jugular vein and subclavian vein. FINDINGS: VEINS: There is occlusive thrombus within the right cephalic vein. The remainder of the venous system of the right upper extremity is compressible throughout its course, with normal flow on color Doppler imaging and normal response to augmentation on spectral Doppler imaging. SOFT TISSUES: Unremarkable. OTHER FINDINGS: None. IMPRESSION: OCCLUSIVE THROMBUS OF THE RIGHT CEPHALIC VEIN, WITHOUT RIGHT UPPER EXTREMITY DEEP VEIN THROMBOSIS
[2017-01-09] MEDS: Miracle MW-Ben/Nyst/Tetrac SWISH SPIT SCH ×3 (13:27→19:41)
[2017-01-09] MEDS: oxyCODONE/Acetamin 5/325 MG* TAB PO PRN (13:33)
[2017-01-09] MEDS: traZODone TAB* 50 MG TAB PO SCH (19:42)
[2017-01-10] MEDS: Cefepime(*) 2 GM in NS 0.9% 50 ML* 50 ML IVPB SCH ×3 (00:59→17:58)
[2017-01-10 07:06] LABS: Hematocrit 23 % (42-52); Hemoglobin 7.6 g/dl (14.0-18.0); Mean Corpuscular HGB Conc 34 g/dl (31-36); Mean Corpuscular Hemoglobin 29 pg (27-31); Mean Corpuscular Volume 86 fL (80-94); Mean Platelet Volume 9 um3 (7.4-10.4); Red Blood Count 2.63 10^6/ul (4.0-5.4); Red Cell Distribution Width 16 % (10.5-15); White Blood Count 1.7 10^3/ul (3.5-10.8)
[2017-01-10 07:10] LABS: Add Diff/Slide Review? Manual Diff Added; Comments Flag Yes
[2017-01-10 07:18] LABS: BUN/Creatinine Ratio 31.4 (8-20); Calcium 7.2 mg/dL (8.6-10.3); EGFR African American 332.7 (>60); EGFR Non-African American 258.7 (>60); Potassium 3.2 mmol/L (3.5-5.0)
[2017-01-10 08:04] LABS: Eosinophils % 2 % (0-6); Immature Granulocytes 4 % (0-9); Neutrophil % 78 % (38-83); Tear Drop Cells 1+
--- NOTE | 2017-01-10 08:23 | PN ---
Progress Note - Progress Note SOAP: Subjective: []Feeling pretty good this AM while laying in bed. Mouth however is very sore, almost worse then yesterday. MMW provides temporary relief. Sores the worst on the sides of his tongue. No pain in right arm, swelling a little better. Wet cough, occ. productive of sputum. SOB with ambulating to bathroom. Very weak. Medications: Acetaminophen (Tylenol Tab*) 650 mg PO Q4H PRN PRN Reason: FEVER/PAIN Allopurinol (Zyloprim Tab*) 300 mg PO DAILY [facility] Last Admin: 01/09/17 10:06 Dose: 300 mg Citalopram Hydrobromide (Celexa Tab*) 20 mg PO DAILY [facility] Last Admin: 01/09/17 10:04 Dose: 20 mg Diphenoxylate HCl/Atropine (Lomotil Tab*) 1 tab PO QID [facility] Last Admin: 01/09/17 19:42 Dose: 1 tab Filgrastim-Sndz (Zarxio*) 480 mcg SUBCUT DAILY [facility] Stop: 01/11/17 23:59 Last Admin: 01/09/17 10:39 Dose: 480 mcg Cefepime HCl 2 gm/ Sodium (Chloride) 50 mls @ 100 mls/hr IVPB Q8H [facility] Last Admin: 01/10/17 00:59 Dose: 100 mls/hr Morphine Sulfate (Ms Contin(*)) 15 mg PO BID [facility] Last Admin: 01/09/17 19:42 Dose: 15 mg Multi-Ingredient Mouthwash/Gargle (Miracle Mw-Jerrod/Nyst/Tetrac*) 5 ml SWISH SPIT QID [facility] Last Admin: 01/09/17 19:41 Dose: 5 ml Ondansetron HCl (Zofran Inj*) 4 mg IV Q4H PRN PRN Reason: NAUSEA/VOMITING Oxycodone/Acetaminophen (Percocet 5/325 Tab*) 1 tab PO Q4H PRN PRN Reason: Pain Last Admin: 01/09/17 13:33 Dose: 1 tab Pantoprazole Sodium (Protonix Iv*) 40 mg IV DAILY [facility] Last Admin: 01/09/17 10:01 Dose: 40 mg Trazodone HCl (Desyrel Tab*) 50 mg PO BEDTIME [facility] Last Admin: 01/09/17 19:42 Dose: 50 mg Objective: [] Vital Signs Temp Pulse Resp BP Pulse Ox 98.6 F 107 20 129/72 99 01/10/17 03:14 01/10/17 03:14 01/10/17 03:14 01/10/17 03:14 01/10/17 03:14 A&Ox3, EOMI, [place], neuro grossly non-focal HRR, S1S2, tele: ST LS clear, slight wet cough noted +BSx4, abd. soft and non-tender Right arm - SVT (cephalic vein), no antigoags, no IVs in that arm Bilat ankles +2 Laboratory Results - last 24 hr 01/09/17 01/10/17 01/10/17 04:55 06:20 06:20 WBC 1.7 L RBC 2.63 L Hgb 7.6 L Hct 23 L MCV 86 MCH 29 MCHC 34 RDW 16 H Plt Count 12 L D MPV 9 Immature Gran % (Auto) 4 Absolute Neuts (auto) 1.3 L Absolute Lymphs (auto) 0.1 L Absolute Monos (auto) 0.3 Absolute Eos (auto) 0 Absolute Basos (auto) 0 Absolute Nucleated RBC 0.01 Neutrophils % 78 Band Neutrophils % 4 Lymphocytes % 6 L Monocytes % 10 Eosinophils % 2 Nucleated RBCs/100 WBC 4 H Normal RBC Morphology Not Reportable Tear Drop Cells 1+ Sodium 135 Potassium 3.2 L Chloride 109 Carbon Dioxide 23 Anion Gap 3 BUN 11 Creatinine 0.35 L Est GFR ( Amer) 332.7 Est GFR (Non-Af Amer) 258.7 BUN/Creatinine Ratio 31.4 H Glucose 98 Calcium 7.2 L Blood Type A Positive Antibody Screen Negative Crossmatch See Detail Assessment: []56 yo m with 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 Plan: []1. Pancytopenia: Transfuse plt. and PRBCs today, recheck labs in AM, cont. neupogen 2. Mucositis: Add dex. mouth rinse 1mg QID swish and spit (can dilute with sm. amt. of water to make 10 mL), cont. MMW as well 3. Hypokalemia: KCl 40 mEq IV today, start PO 20 mEq daily as well 4. Diarrhea: improved on lomotil, but will change to PRN now 5. De-conditioning: PT eval. and treat 6. Right arm Superficial Venous Thrombosis: heat if painful, no IVs that arm, follow
[2017-01-10 09:20] LABS: Magnesium 1.8 mg/dL (1.9-2.7)
[2017-01-10] MEDS: Pantoprazole IV* 40 MG IV SCH (09:40)
[2017-01-10] MEDS: Potassium Chlor TAB* 20 MEQ TAB.ER PO SCH (10:57)
[2017-01-10] MEDS: Miracle MW-Ben/Nyst/Tetrac SWISH SPIT SCH ×4 (10:57→20:34)
[2017-01-10] MEDS: Diphenoxylat/Atrop 2.5-0.025M* 1 TAB PO SCH ×4 (10:58→20:30)
[2017-01-10] MEDS: Morphine TAB Extended Release (*) 15 MG TAB.ER PO SCH ×2 (10:59→20:31)
[2017-01-10] MEDS: Citalopram TAB* 20 MG PO SCH (10:59)
[2017-01-10] MEDS: FILGRASTIM-SNDZ* 480 MCG/0.8 ML SYRINGE SUBCUT SCH (11:00)
[2017-01-10] MEDS: Allopurinol TAB* 300 MG PO SCH (11:00)
[2017-01-10] MEDS: KCL 20 MEQ/100 ML IVPREMIX* 20 MEQ/100 ML BAG IV SCH ×3 (11:42→14:12)
--- NOTE | 2017-01-10 11:44 | RAD ---
INDICATION: Cough. Fever COMPARISON: January 06, 2017 TECHNIQUE: PA and lateral dual-energy views were obtained. FINDINGS: Bones/Soft Tissues: There are no acute bony findings. There is a left-sided central venous catheter terminating in the superior vena cava. Cardiomediastinal: The cardiomediastinal silhouette is normal. Lungs: There is infiltrate or atelectasis in the right middle and lower lobes. The remaining lung lamar are clear. Pleura: Small right-sided effusion.. Other: None IMPRESSION: SUBTLE RIGHT BASAL INFILTRATE OR ATELECTASIS. SMALL RIGHT-SIDED EFFUSION
[2017-01-10] MEDS: Dexamethasone Oral Solution* 1 MG/ML 10 ML UDC (10 MG) PO SCH ×3 (13:32→20:31)
[2017-01-10] MEDS: oxyCODONE/Acetamin 5/325 MG* TAB PO PRN (15:43)
[2017-01-10] MEDS ORDERED: KCL 20 MEQ/100 ML IVPREMIX* 20 MEQ/100 ML BAG IV ONE (16:00)
[2017-01-10] MEDS: traZODone TAB* 50 MG TAB PO SCH (20:31)
[2017-01-11 00:45] LABS: Mean Platelet Volume 10 um3 (7.4-10.4)
[2017-01-11 00:47] LABS: Comments Flag Yes
[2017-01-11] MEDS: Cefepime(*) 2 GM in NS 0.9% 50 ML* 50 ML IVPB SCH ×3 (02:21→17:54)
[2017-01-11 06:57] LABS: Albumin 1.9 g/dL (3.2-5.2); BUN/Creatinine Ratio 27.8 (8-20); Calcium 7.1 mg/dL (8.6-10.3); EGFR Non-African American 250.4 (>60); Globulin 1.8 g/dL (2-4); Magnesium 1.7 mg/dL (1.9-2.7); Potassium 3.4 mmol/L (3.5-5.0); Total Bilirubin 0.7 mg/dL (0.2-1.0); Total Protein 3.7 g/dL (6.4-8.9)
[2017-01-11] MEDS: Pantoprazole IV* 40 MG IV SCH (09:12)
[2017-01-11 09:36] LABS: Hematocrit 28 % (42-52); Hemoglobin 9.4 g/dl (14.0-18.0); Mean Corpuscular HGB Conc 34 g/dl (31-36); Mean Corpuscular Hemoglobin 29 pg (27-31); Mean Corpuscular Volume 86 fL (80-94); Mean Platelet Volume 10 um3 (7.4-10.4); Red Blood Count 3.21 10^6/ul (4.0-5.4); Red Cell Distribution Width 16 % (10.5-15); White Blood Count 4.5 10^3/ul (3.5-10.8)
[2017-01-11 09:42] LABS: Add Diff/Slide Review? Slide Review Added; Comments Flag Yes
[2017-01-11] MEDS: Citalopram TAB* 20 MG PO SCH (10:08)
[2017-01-11] MEDS: Allopurinol TAB* 300 MG PO SCH (10:08)
[2017-01-11] MEDS: Diphenoxylat/Atrop 2.5-0.025M* 1 TAB PO SCH ×4 (10:08→20:47)
[2017-01-11] MEDS: Morphine TAB Extended Release (*) 15 MG TAB.ER PO SCH ×2 (10:08→20:48)
[2017-01-11] MEDS: Miracle MW-Ben/Nyst/Tetrac SWISH SPIT SCH ×4 (10:09→20:49)
[2017-01-11] MEDS: Potassium Chlor TAB* 20 MEQ TAB.ER PO SCH (10:09)
[2017-01-11] MEDS: Dexamethasone Oral Solution* 1 MG/ML 10 ML UDC (10 MG) PO SCH ×4 (10:09→20:48)
[2017-01-11] MEDS ORDERED: Potassium Chlor TAB* 20 MEQ TAB.ER PO ONE (14:00)
[2017-01-11] MEDS: FILGRASTIM-SNDZ* 480 MCG/0.8 ML SYRINGE SUBCUT SCH (14:25)
[2017-01-11] MEDS: traZODone TAB* 50 MG TAB PO SCH (20:47)
[2017-01-12] MEDS: Cefepime(*) 2 GM in NS 0.9% 50 ML* 50 ML IVPB SCH ×2 (02:19→09:25)
[2017-01-12 06:06] LABS: Hematocrit 25 % (42-52); Hemoglobin 8.4 g/dl (14.0-18.0); Mean Corpuscular HGB Conc 34 g/dl (31-36); Mean Corpuscular Hemoglobin 29 pg (27-31); Mean Corpuscular Volume 88 fL (80-94); Mean Platelet Volume 11 um3 (7.4-10.4); Red Blood Count 2.87 10^6/ul (4.0-5.4); Red Cell Distribution Width 16 % (10.5-15); White Blood Count 3.2 10^3/ul (3.5-10.8)
[2017-01-12 06:17] LABS: BUN/Creatinine Ratio 28.1 (8-20); Calcium 7.3 mg/dL (8.6-10.3); EGFR African American 368.9 (>60); EGFR Non-African American 286.9 (>60); Potassium 3.3 mmol/L (3.5-5.0)
[2017-01-12 06:19] LABS: Add Diff/Slide Review? Manual Diff Added; Comments Flag Yes
[2017-01-12 06:56] LABS: Hypochromasia 1+; Immature Granulocytes 19 % (0-9); Macrocytosis 1+; Metamyelocytes % 2 % (0-2); Microcytosis 1+; Neutrophil % 57 % (38-83); Polychromasia 1+
[2017-01-12 08:07] VITALS: BP 130/72
[2017-01-12] MEDS ORDERED: Lidocaine 2% VISCOUS* 15 ML UDC SWISH SPIT PRN (08:25)
[2017-01-12] MEDS ORDERED: Potassium Chlor TAB* 20 MEQ TAB.ER PO ONE (08:31)
[2017-01-12] MEDS: Pantoprazole IV* 40 MG IV SCH (09:25)
[2017-01-12] MEDS: Dexamethasone Oral Solution* 1 MG/ML 10 ML UDC (10 MG) PO SCH (09:25)
[2017-01-12] MEDS: Diphenoxylat/Atrop 2.5-0.025M* 1 TAB PO SCH (09:26)
[2017-01-12] MEDS: Citalopram TAB* 20 MG PO SCH (09:26)
[2017-01-12] MEDS: Allopurinol TAB* 300 MG PO SCH (09:27)
[2017-01-12] MEDS: Morphine TAB Extended Release (*) 15 MG TAB.ER PO SCH (09:27)
[2017-01-12] MEDS: Potassium Chlor TAB* 20 MEQ TAB.ER PO SCH (09:27)
[2017-01-12] MEDS: Miracle MW-Ben/Nyst/Tetrac SWISH SPIT SCH (09:27)
== END 2017-01-12 13:35 | disposition home or self-care (01) | DRG 809 ==
LOC: ED 15:13 → MEDTELE 18:57 → ICU 01-06 09:09 → MEDTELE 01-08 16:14
PROVIDERS: ADMIT Internal Medicine Hematology & Oncology; ATTEND Internal Medicine Hematology & Oncology
PROC: 30233N1 Transfusion of Nonautologous Red Blood Cells into Peripheral Vein, Percutaneous Approach (ICD-10-PCS; principal; 2017-01-09)
PROC: 30233R1 Transfusion of Nonautologous Platelets into Peripheral Vein, Percutaneous Approach (ICD-10-PCS; 2017-01-10)
DX: D61.810 Antineoplastic chemotherapy induced pancytopenia (principal); C83.30 Diffuse large B-cell lymphoma, unspecified site; I82.611 Acute embolism and thrombosis of superficial veins of right upper extremity; K12.30 Oral mucositis (ulcerative), unspecified; E87.6 Hypokalemia; I10 Essential (primary) hypertension; M10.9 Gout, unspecified; Z87.891 Personal history of nicotine dependence; G89.29 Other chronic pain; M54.5 Low back pain; Z82.49 Family history of ischemic heart disease and other diseases of the circulatory system; K52.89 Other specified noninfective gastroenteritis and colitis; T45.1X5A Adverse effect of antineoplastic and immunosuppressive drugs, initial encounter
CPT/HCPCS: 36415; 71010; 71020; 80048; 80053; 81003; 82550; 82553; 83605; 83690; 83735; 83880; 84443; 84484; 85025; 85049; 85060; 85610; 85730; 86140; 86850; 86900; 86901; 86922; 87040; 87070; 87086; 87205; 87493; 87641; 93005; 99223; 99232; 99233; A9270-GY; J0692; J1642; J2405; J3480; P9016; P9035; P9040; Q5101 ZA

== ENCOUNTER 2017-02-18 10:26 | Inpatient (IN) | payer BC ==
[2017-02-18] MEDS: ETOPOSIDE IVPB SCH ×2 (13:52→15:11)
[2017-02-18] MEDS: VINCRISTINE IVPB SCH ×2 (13:52→15:11)
[2017-02-18] MEDS: [UNRECOGNIZED DRUG - OTHER] IVPB SCH ×2 (13:52→15:11)
[2017-02-18] MEDS: DOXORUBICIN IVPB SCH ×2 (13:52→15:11)
[2017-02-18] MEDS ORDERED: oxyCODONE/Acetamin 5/325 MG* TAB PO PRN (14:29)
[2017-02-18] MEDS ORDERED: Acetaminophen TAB* 325 MG PO PRN ×2 (14:29→14:33)
[2017-02-18] MEDS ORDERED: Prochlorperazine TAB* 10 MG PO PRN (14:33)
[2017-02-18] MEDS ORDERED: Magic M W2 Ben/Maal/Nyst/Lido* 240 ML MOUTHWASH (alt formulation) SWISH SPIT PRN (14:33)
[2017-02-18] MEDS ORDERED: Ondansetron INJ* 2 MG/ML VIAL IV PRN (14:35)
[2017-02-18] MEDS: Enoxaparin(*) 40 MG/0.4 ML SYR SUBCUT SCH (15:27)
--- NOTE | 2017-02-18 16:59 | PM ---
DATE OF PROCEDURE: 02/18/2017 - ROOM #412 DIAGNOSIS: Lymphoma. HISTORY: The patient is a 56-year-old male who has a history of lymphoma and is scheduled today to undergo intrathecal injection of Methotrexate as part of his chemotherapeutic program. I have done the lumbar puncture for Dr. Ayers in the past and he is scheduled today for the procedure. As I stated above, I have done this before for the patient and I provide the access to the subarachnoid space for intrathecal Methotrexate injection. I had a chance to discuss the procedure with the patient, the risks, the benefits and alternatives to therapy, and informed consent was obtained. Labs were reviewed and there are no contraindications to the procedure. PROCEDURE NOTE: In the sitting position, his low back was prepped and draped in the usual sterile fashion. Three cc of 1% Lidocaine was used for local anesthesia at the L3-4 interspace. A 20-gauge introducer was passed into the intraspinous ligament at L3-4. I then placed a 25-gauge Pencan needle via the introducer into the subarachnoid space. There was good free flow of cerebrospinal fluid. There were no paresthesias or blood noted. I proceeded to withdraw 10 cc of clear cerebrospinal fluid. Dr. Ayers then took over and proceeded to inject the intrathecal Methotrexate per their protocol. He was in charge of removing the needle and introducer. [id number]/[facility] #: [id number] [facility]
[2017-02-18] MEDS: Morphine TAB Extended Release (*) 15 MG TAB.ER PO SCH (20:58)
[2017-02-18] MEDS: traZODone TAB* 50 MG TAB PO SCH (20:58)
[2017-02-18] MEDS ORDERED: Zolpidem TAB* 5 MG PO SCH (21:00)
[2017-02-18] MEDS ORDERED: predniSONE TAB* 20 MG PO SCH (21:00)
[2017-02-18] MEDS ORDERED: predniSONE TAB* 50 MG PO SCH (21:00)
[2017-02-18] MEDS: predniSONE TAB* 20 MG PO SCH (21:03)
[2017-02-19] MEDS: Morphine TAB Extended Release (*) 15 MG TAB.ER PO SCH ×2 (08:00→21:33)
[2017-02-19] MEDS: predniSONE TAB* 20 MG PO SCH ×2 (08:00→21:33)
[2017-02-19] MEDS: Aspirin Low Dose CHEW TAB* 81 MG PO SCH (08:00)
[2017-02-19] MEDS: Citalopram TAB* 20 MG PO SCH (08:00)
[2017-02-19] MEDS: Omeprazole CAP* 20 MG PO SCH (08:00)
[2017-02-19] MEDS: Docusate CAP* 100 MG PO SCH (08:00)
[2017-02-19 08:19] LABS: Hematocrit 34 % (42-52); Hemoglobin 11.3 g/dl (14.0-18.0); Mean Corpuscular HGB Conc 33 g/dl (31-36); Mean Corpuscular Hemoglobin 33 pg (27-31); Mean Corpuscular Volume 98 fL (80-94); Mean Platelet Volume 9 um3 (7.4-10.4); Red Blood Count 3.48 10^6/ul (4.0-5.4); Red Cell Distribution Width 18 % (10.5-15); White Blood Count 3.8 10^3/ul (3.5-10.8)
[2017-02-19 08:30] LABS: Albumin 3.5 g/dL (3.2-5.2); BUN/Creatinine Ratio 23.8 (8-20); Calcium 9.2 mg/dL (8.6-10.3); EGFR African American 269.5 (>60); EGFR Non-African American 209.6 (>60); Potassium 3.9 mmol/L (3.5-5.0); Total Bilirubin 0.7 mg/dL (0.2-1.0); Total Protein 5.5 g/dL (6.4-8.9)
--- NOTE | 2017-02-19 11:49 | PN ---
Progress Note - Progress Note SOAP: Subjective: []Feeling very well. No issues with chemotherapy. No nausea. Great appetite and has gained back some wt. Has new insurance and isn't sure about coverage for [employer], has 5 shots at home. Medications: Acetaminophen (Tylenol Tab*) 650 mg PO Q4H PRN PRN Reason: FEVER/PAIN Acetaminophen (Tylenol Tab*) 650 mg PO Q6H PRN PRN Reason: PAIN Aspirin (Aspirin Low Dose Tab*) 81 mg PO DAILY [facility] Last Admin: 02/19/17 08:00 Dose: 81 mg Citalopram Hydrobromide (Celexa Tab*) 20 mg PO DAILY [facility] Last Admin: 02/19/17 08:00 Dose: 20 mg Docusate Sodium (Colace Cap*) 100 mg PO DAILY [facility] Last Admin: 02/19/17 08:00 Dose: 100 mg Enoxaparin Sodium (Lovenox(*)) 40 mg SUBCUT Q24H [facility] Last Admin: 02/18/17 15:27 Dose: 40 mg Etoposide 118 mg/ Doxorubicin HCl 24 mg/ Vincristine Sulfate 0.79 mg/ Sodium Chloride 518.69 mls @ 21.612 mls/hr IVPB Q24H [facility] Stop: 02/22/17 12:59 Last Admin: 02/18/17 13:52 Dose: 21.612 mls/hr Cyclophosphamide 1,780 mg/ (Sodium Chloride) 589 mls @ 589 mls/hr IVPB ONCE ONE Stop: 02/22/17 13:59 Morphine Sulfate (Ms Contin(*)) 15 mg PO BID [facility] Last Admin: 02/19/17 08:00 Dose: 15 mg Multi-Ingredient Mouthwash/Gargle (Magic M W2 Jerrod/Maal/Nyst/Lido*) 5 ml SWISH SPIT Q6HR PRN PRN Reason: MOUTH SORES Omeprazole (Prilosec Cap*) 20 mg PO DAILY [facility] Last Admin: 02/19/17 08:00 Dose: 20 mg Ondansetron HCl (Zofran Inj*) 8 mg IV Q8H PRN PRN Reason: NAUSEA Oxycodone/Acetaminophen (Percocet 5/325 Tab*) 1 tab PO Q4H PRN PRN Reason: Pain Prednisone (Deltasone Tab*) 120 mg PO BID [facility] Last Admin: 02/19/17 08:00 Dose: 120 mg Prochlorperazine (Compazine Tab*) 10 mg PO Q6H PRN PRN Reason: NAUSEA Trazodone HCl (Desyrel Tab*) 50 mg PO BEDTIME [facility] Last Admin: 02/18/17 20:58 Dose: 50 mg Objective: [] Vital Signs Temp Pulse Resp BP Pulse Ox 97.8 F 76 18 117/50 98 02/19/17 08:05 02/19/17 08:05 02/19/17 08:13 02/19/17 08:05 02/19/17 08:05 A&Ox3, EOMI, [place], neuro grossly non-focal HRR, no murmur noted LS clear bilat. throughout +BS, abd. soft and non-tender Laboratory Results - last 24 hr 02/19/17 02/19/17 08:00 08:00 WBC 3.8 RBC 3.48 L Hgb 11.3 L Hct 34 L MCV 98 H MCH 33 H MCHC 33 RDW 18 H Plt Count 101 L MPV 9 Neut % (Auto) 89.5 H Lymph % (Auto) 8.8 L [place] % (Auto) 1.3 Eos % (Auto) 0.2 Baso % (Auto) 0.2 Absolute Neuts (auto) 3.4 Absolute Lymphs (auto) 0.3 L Absolute Monos (auto) 0 Absolute Eos (auto) 0 Absolute Basos (auto) 0 Absolute Nucleated RBC 0 Nucleated RBC % 0.1 Sodium 139 Potassium 3.9 Chloride 108 Carbon Dioxide 22 Anion Gap 9 BUN 10 Creatinine 0.42 L Est GFR ( Amer) 269.5 Est GFR (Non-Af Amer) 209.6 BUN/Creatinine Ratio 23.8 H Glucose 149 H Calcium 9.2 Total Bilirubin 0.70 AST 11 L ALT 25 Alkaline Phosphatase 75 Total Protein 5.5 L Albumin 3.5 Globulin 2.0 Albumin/Globulin Ratio 1.8 Assessment: []56 yo with triple hit lymphoma admitted for last cycle (C6) of dose adjusted EPOCH with IT methotrexate. Doing very well overall. Plan: []1. Chemo as planned, no change in plan of care 2. Will investigate neupogen coverage
[2017-02-19] MEDS: ETOPOSIDE IVPB SCH (13:02)
[2017-02-19] MEDS: [UNRECOGNIZED DRUG - OTHER] IVPB SCH (13:02)
[2017-02-19] MEDS: DOXORUBICIN IVPB SCH (13:02)
[2017-02-19] MEDS: VINCRISTINE IVPB SCH (13:02)
[2017-02-19] MEDS: Enoxaparin(*) 40 MG/0.4 ML SYR SUBCUT SCH (16:42)
[2017-02-19] MEDS: Polyethylene Glycol 3350* 17 GM PACKET PO PRN (18:50)
[2017-02-19] MEDS: traZODone TAB* 50 MG TAB PO SCH (21:32)
[2017-02-20 05:53] LABS: Add Diff/Slide Review? Slide Review Added; Comments Flag Yes; Hematocrit 30 % (42-52); Hemoglobin 9.9 g/dl (14.0-18.0); Mean Corpuscular HGB Conc 33 g/dl (31-36); Mean Corpuscular Hemoglobin 33 pg (27-31); Mean Corpuscular Volume 99 fL (80-94); Mean Platelet Volume 10 um3 (7.4-10.4); Red Blood Count 3.03 10^6/ul (4.0-5.4); Red Cell Distribution Width 17 % (10.5-15); White Blood Count 3.6 10^3/ul (3.5-10.8)
[2017-02-20 06:09] LABS: Albumin 3.3 g/dL (3.2-5.2); BUN/Creatinine Ratio 27.3 (8-20); Calcium 8.9 mg/dL (8.6-10.3); EGFR African American 255.5 (>60); EGFR Non-African American 198.6 (>60); Globulin 1.7 g/dL (2-4); Potassium 3.8 mmol/L (3.5-5.0); Total Bilirubin 0.7 mg/dL (0.2-1.0)
[2017-02-20] MEDS: Morphine TAB Extended Release (*) 15 MG TAB.ER PO SCH ×2 (08:17→21:01)
[2017-02-20] MEDS: Citalopram TAB* 20 MG PO SCH (08:17)
[2017-02-20] MEDS: predniSONE TAB* 20 MG PO SCH ×2 (08:17→21:01)
[2017-02-20] MEDS: Docusate CAP* 100 MG PO SCH (08:17)
[2017-02-20] MEDS: Aspirin Low Dose CHEW TAB* 81 MG PO SCH (08:17)
[2017-02-20] MEDS: Omeprazole CAP* 20 MG PO SCH (08:17)
--- NOTE | 2017-02-20 11:22 | PN ---
Progress Note - Progress Note SOAP: Subjective: []Feeling well with no specific complaints. Very dry skin, but no open areas. Ambulating around unit easily. Good appetite. Curious about his doses. Wonders if he'll have to get his port right out. Medications: Acetaminophen (Tylenol Tab*) 650 mg PO Q4H PRN PRN Reason: FEVER/PAIN Acetaminophen (Tylenol Tab*) 650 mg PO Q6H PRN PRN Reason: PAIN Aspirin (Aspirin Low Dose Tab*) 81 mg PO DAILY [facility] Last Admin: 02/20/17 08:17 Dose: 81 mg Citalopram Hydrobromide (Celexa Tab*) 20 mg PO DAILY [facility] Last Admin: 02/20/17 08:17 Dose: 20 mg Docusate Sodium (Colace Cap*) 100 mg PO DAILY [facility] Last Admin: 02/20/17 08:17 Dose: 100 mg Enoxaparin Sodium (Lovenox(*)) 40 mg SUBCUT Q24H [facility] Last Admin: 02/19/17 16:42 Dose: 40 mg Etoposide 118 mg/ Doxorubicin HCl 24 mg/ Vincristine Sulfate 0.79 mg/ Sodium Chloride 518.69 mls @ 21.612 mls/hr IVPB Q24H [facility] Stop: 02/22/17 12:59 Last Admin: 02/19/17 13:02 Dose: 21.612 mls/hr Cyclophosphamide 1,780 mg/ (Sodium Chloride) 589 mls @ 589 mls/hr IVPB ONCE ONE Stop: 02/22/17 13:59 Morphine Sulfate (Ms Contin(*)) 15 mg PO BID [facility] Last Admin: 02/20/17 08:17 Dose: 15 mg Multi-Ingredient Mouthwash/Gargle (Magic M W2 Jerrod/Maal/Nyst/Lido*) 5 ml SWISH SPIT Q6HR PRN PRN Reason: MOUTH SORES Omeprazole (Prilosec Cap*) 20 mg PO DAILY [facility] Last Admin: 02/20/17 08:17 Dose: 20 mg Ondansetron HCl (Zofran Inj*) 8 mg IV Q8H PRN PRN Reason: NAUSEA Oxycodone/Acetaminophen (Percocet 5/325 Tab*) 1 tab PO Q4H PRN PRN Reason: Pain Polyethylene Glycol/Electrolytes (Miralax*) 17 gm PO DAILY PRN PRN Reason: CONSTIPATION Last Admin: 02/19/17 18:50 Dose: 17 gm Prednisone (Deltasone Tab*) 120 mg PO BID [facility] Last Admin: 02/20/17 08:17 Dose: 120 mg Prochlorperazine (Compazine Tab*) 10 mg PO Q6H PRN PRN Reason: NAUSEA Trazodone HCl (Desyrel Tab*) 50 mg PO BEDTIME [facility] Last Admin: 02/19/17 21:32 Dose: 50 mg Objective: [] Vital Signs Temp Pulse Resp BP Pulse Ox 98.5 F 72 16 109/65 98 02/20/17 07:22 02/20/17 07:22 02/20/17 10:12 02/20/17 07:22 02/20/17 07:22 A&Ox3, EOMI, [place], neuro grossly non-focal HRR, no murmur noted LS clear bilat. throughout with even and non-labored respirations +BS, abd. soft and non-tender +PP=bilat., no edema Dry skin, pink blanchable heels Laboratory Results - last 24 hr 02/20/17 02/20/17 05:30 05:30 WBC 3.6 RBC 3.03 L Hgb 9.9 L Hct 30 L MCV 99 H MCH 33 H MCHC 33 RDW 17 H Plt Count 79 L MPV 10 Neut % (Auto) 88.4 H Lymph % (Auto) 8.2 L [place] % (Auto) 2.8 Eos % (Auto) 0 Baso % (Auto) 0.6 Absolute Neuts (auto) 3.2 Absolute Lymphs (auto) 0.3 L Absolute Monos (auto) 0.1 Absolute Eos (auto) 0 Absolute Basos (auto) 0 Absolute Nucleated RBC 0 Nucleated RBC % 0 Sodium 140 Potassium 3.8 Chloride 111 Carbon Dioxide 24 Anion Gap 5 BUN 12 Creatinine 0.44 L Est GFR ( Amer) 255.5 Est GFR (Non-Af Amer) 198.6 BUN/Creatinine Ratio 27.3 H Glucose 146 H Calcium 8.9 Total Bilirubin 0.70 AST 17 ALT 23 Alkaline Phosphatase 61 Total Protein 5.0 L Albumin 3.3 Globulin 1.7 L Albumin/Globulin Ratio 1.9 Assessment: []56 yo m with 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 30% dose reduction from last tx. d/t significant pancytopenia with fever) doing very well on D3. Nothing concerning on exam and no changes in plan of care. Plan: []1. Continue current treatment, no change 2. Daily labs, likely will need blood D5 and then will plan labs Mon. 02/25 as well 3. Encourage ambulation
[2017-02-20] MEDS: ETOPOSIDE IVPB SCH (13:57)
[2017-02-20] MEDS: [UNRECOGNIZED DRUG - OTHER] IVPB SCH (13:57)
[2017-02-20] MEDS: VINCRISTINE IVPB SCH (13:57)
[2017-02-20] MEDS: DOXORUBICIN IVPB SCH (13:57)
[2017-02-20] MEDS: Enoxaparin(*) 40 MG/0.4 ML SYR SUBCUT SCH (15:49)
[2017-02-20] MEDS: traZODone TAB* 50 MG TAB PO SCH (21:01)
[2017-02-20] MEDS: Polyethylene Glycol 3350* 17 GM PACKET PO PRN (21:16)
[2017-02-21 07:40] LABS: Hematocrit 29 % (42-52); Hemoglobin 9.7 g/dl (14.0-18.0); Mean Corpuscular HGB Conc 34 g/dl (31-36); Mean Corpuscular Hemoglobin 33 pg (27-31); Mean Corpuscular Volume 98 fL (80-94); Mean Platelet Volume 9 um3 (7.4-10.4); Red Blood Count 2.91 10^6/ul (4.0-5.4); Red Cell Distribution Width 17 % (10.5-15); White Blood Count 2.8 10^3/ul (3.5-10.8)
[2017-02-21 07:41] LABS: Add Diff/Slide Review? Slide Review Added; Comments Flag Yes
[2017-02-21 07:48] LABS: Albumin 3.3 g/dL (3.2-5.2); BUN/Creatinine Ratio 34.1 (8-20); Calcium 8.8 mg/dL (8.6-10.3); EGFR African American 277.1 (>60); EGFR Non-African American 215.5 (>60); Globulin 1.7 g/dL (2-4); Potassium 3.6 mmol/L (3.5-5.0); Total Bilirubin 0.8 mg/dL (0.2-1.0)
[2017-02-21] MEDS: Aspirin Low Dose CHEW TAB* 81 MG PO SCH (09:26)
[2017-02-21] MEDS: Citalopram TAB* 20 MG PO SCH (09:26)
[2017-02-21] MEDS: predniSONE TAB* 20 MG PO SCH ×2 (09:26→20:50)
[2017-02-21] MEDS: Docusate CAP* 100 MG PO SCH (09:26)
[2017-02-21] MEDS: Omeprazole CAP* 20 MG PO SCH (09:26)
[2017-02-21] MEDS: Morphine TAB Extended Release (*) 15 MG TAB.ER PO SCH ×2 (09:26→20:50)
--- NOTE | 2017-02-21 12:18 | PN ---
Progress Note - Progress Note SOAP: Subjective: []Feels well. Feet are a little puffy. Skin better with lotion. No concerns. Medications: Acetaminophen (Tylenol Tab*) 650 mg PO Q4H PRN PRN Reason: FEVER/PAIN Acetaminophen (Tylenol Tab*) 650 mg PO Q6H PRN PRN Reason: PAIN Aspirin (Aspirin Low Dose Tab*) 81 mg PO DAILY [facility] Last Admin: 02/21/17 09:26 Dose: 81 mg Citalopram Hydrobromide (Celexa Tab*) 20 mg PO DAILY [facility] Last Admin: 02/21/17 09:26 Dose: 20 mg Docusate Sodium (Colace Cap*) 100 mg PO DAILY [facility] Last Admin: 02/21/17 09:26 Dose: 100 mg Enoxaparin Sodium (Lovenox(*)) 40 mg SUBCUT Q24H [facility] Last Admin: 02/20/17 15:49 Dose: 40 mg Etoposide 118 mg/ Doxorubicin HCl 24 mg/ Vincristine Sulfate 0.79 mg/ Sodium Chloride 518.69 mls @ 21.612 mls/hr IVPB Q24H [facility] Stop: 02/22/17 12:59 Last Admin: 02/20/17 13:57 Dose: 21.612 mls/hr Cyclophosphamide 1,780 mg/ (Sodium Chloride) 589 mls @ 589 mls/hr IVPB ONCE ONE Stop: 02/22/17 13:59 Morphine Sulfate (Ms Contin(*)) 15 mg PO BID [facility] Last Admin: 02/21/17 09:26 Dose: 15 mg Multi-Ingredient Mouthwash/Gargle (Magic M W2 Jerrod/Maal/Nyst/Lido*) 5 ml SWISH SPIT Q6HR PRN PRN Reason: MOUTH SORES Omeprazole (Prilosec Cap*) 20 mg PO DAILY [facility] Last Admin: 02/21/17 09:26 Dose: 20 mg Ondansetron HCl (Zofran Inj*) 8 mg IV Q8H PRN PRN Reason: NAUSEA Oxycodone/Acetaminophen (Percocet 5/325 Tab*) 1 tab PO Q4H PRN PRN Reason: Pain Polyethylene Glycol/Electrolytes (Miralax*) 17 gm PO DAILY PRN PRN Reason: CONSTIPATION Last Admin: 02/20/17 21:16 Dose: 17 gm Prednisone (Deltasone Tab*) 120 mg PO BID [facility] Last Admin: 02/21/17 09:26 Dose: 120 mg Prochlorperazine (Compazine Tab*) 10 mg PO Q6H PRN PRN Reason: NAUSEA Trazodone HCl (Desyrel Tab*) 50 mg PO BEDTIME [facility] Last Admin: 02/20/17 21:01 Dose: 50 mg Objective: [] Vital Signs Temp Pulse Resp BP Pulse Ox 98.1 F 64 15 134/63 100 02/21/17 07:52 02/21/17 07:52 02/21/17 09:26 02/21/17 07:52 02/21/17 07:52 A&Ox3. EOMI, [place], neuro grossly non-focal HRR, no murmur noted LS clear bilat. +BS, abd. soft and non-tender +PP=bilat., very slight edema to feet, non-pitting Laboratory Results - last 24 hr 02/21/17 02/21/17 05:58 05:58 WBC 2.8 L RBC 2.91 L Hgb 9.7 L Hct 29 L MCV 98 H MCH 33 H MCHC 34 RDW 17 H Plt Count 82 L MPV 9 Neut % (Auto) 91.0 H Lymph % (Auto) 7.7 L [place] % (Auto) 1.2 Eos % (Auto) 0 Baso % (Auto) 0.1 Absolute Neuts (auto) 2.6 Absolute Lymphs (auto) 0.2 L Absolute Monos (auto) 0 Absolute Eos (auto) 0 Absolute Basos (auto) 0 Absolute Nucleated RBC 0 Nucleated RBC % 0 Sodium 139 Potassium 3.6 Chloride 108 Carbon Dioxide 24 Anion Gap 7 BUN 14 Creatinine 0.41 L Est GFR ( Amer) 277.1 Est GFR (Non-Af Amer) 215.5 BUN/Creatinine Ratio 34.1 H Glucose 142 H Calcium 8.8 Total Bilirubin 0.80 AST 17 ALT 27 Alkaline Phosphatase 55 Total Protein 5.0 L Albumin 3.3 Globulin 1.7 L Albumin/Globulin Ratio 1.9 Assessment: []56 yo m with 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 H&H stable therefore may not need transfusion prior to d/c, however will follow labs closely. Plan: []1. Continue chemotherapy, no change 2. Follow daily labs, plan labs on d/c Mon. 02/24 and may repeat more frequently dependent on levels d/t prior pancytopenia 3. Constipation: Increase miralax, cont. ambulation D/C tomorrow after completion of tx.
[2017-02-21] MEDS ORDERED: Polyethylene Glycol 3350* 17 GM PACKET ONE (12:23)
[2017-02-21] MEDS: Polyethylene Glycol 3350* 17 GM PACKET PO SCH ×3 (13:09→20:48)
[2017-02-21] MEDS: [UNRECOGNIZED DRUG - OTHER] IVPB SCH (13:19)
[2017-02-21] MEDS: DOXORUBICIN IVPB SCH (13:19)
[2017-02-21] MEDS: VINCRISTINE IVPB SCH (13:19)
[2017-02-21] MEDS: ETOPOSIDE IVPB SCH (13:19)
[2017-02-21] MEDS: Enoxaparin(*) 40 MG/0.4 ML SYR SUBCUT SCH (17:07)
[2017-02-21] MEDS: traZODone TAB* 50 MG TAB PO SCH (20:50)
[2017-02-22 07:22] LABS: Comments Flag Yes; Hematocrit 30 % (42-52); Mean Corpuscular HGB Conc 34 g/dl (31-36); Mean Corpuscular Hemoglobin 33 pg (27-31); Mean Corpuscular Volume 98 fL (80-94); Mean Platelet Volume 9 um3 (7.4-10.4); Red Blood Count 3.06 10^6/ul (4.0-5.4); Red Cell Distribution Width 16 % (10.5-15)
[2017-02-22 07:23] LABS: White Blood Count 2.8 10^3/ul (3.5-10.8)
[2017-02-22 07:41] LABS: Albumin 3.3 g/dL (3.2-5.2); BUN/Creatinine Ratio 34.1 (8-20); Calcium 8.7 mg/dL (8.6-10.3); EGFR African American 277.1 (>60); EGFR Non-African American 215.5 (>60); Globulin 1.6 g/dL (2-4); Potassium 3.4 mmol/L (3.5-5.0); Total Bilirubin 0.9 mg/dL (0.2-1.0); Total Protein 4.9 g/dL (6.4-8.9)
[2017-02-22 07:42] VITALS: BP 133/74
[2017-02-22] MEDS: Docusate CAP* 100 MG PO SCH (08:45)
[2017-02-22] MEDS: Polyethylene Glycol 3350* 17 GM PACKET PO SCH ×2 (08:45→14:32)
[2017-02-22] MEDS: Omeprazole CAP* 20 MG PO SCH (08:46)
[2017-02-22] MEDS: Morphine TAB Extended Release (*) 15 MG TAB.ER PO SCH (08:46)
[2017-02-22] MEDS: Aspirin Low Dose CHEW TAB* 81 MG PO SCH (08:46)
[2017-02-22] MEDS: Citalopram TAB* 20 MG PO SCH (08:46)
[2017-02-22] MEDS: predniSONE TAB* 20 MG PO SCH (08:47)
[2017-02-22] MEDS ORDERED: NS 0.9% IVPB ONE (13:00)
[2017-02-22] MEDS ORDERED: CYCLOPHOSPHAMIDE IVPB ONE (13:00)
--- NOTE | 2017-02-22 23:02 | DS ---
DISCHARGE SUMMARY: DATE OF ADMISSION: 02/18/17 DATE OF DISCHARGE: 02/22/17 REASON FOR ADMISSION: Chemotherapy admission of EPOCH chemotherapy. PRINCIPAL DIAGNOSES: Include: 1. Diffuse large cell lymphoma, stage 4. 2. Previous history of febrile neutropenia. 3. Previous history of gout. 4. History of hypokalemia. 5. History of pancytopenia secondary to chemotherapy. 6. History of syncope. DISCHARGE MEDICATIONS: Include: 1. Tylenol 650 mg p.o. every 6 hours as needed. 2. Aspirin 81 mg daily. 3. Celexa 20 mg p.o. daily. 4. Colace 100 mg p.o. daily. 5. Morphine sulfate 15 mg p.o. twice daily. 6. Miracle Mouthwash 5 mL swish and spit every 6 hours for mouth sores. 7. Prilosec 20 mg p.o. daily. 8. Zofran 8 mg p.o. every 8 hours as needed for nausea. 9. Percocet 1 tab every 6 hours as needed for breakthrough pain. 10. MiraLAX 17 g p.o. 3 times daily. 11. Potassium chloride 20 mEq p.o. daily. 12. Prednisone 120 mg p.o. daily. 13. Compazine 10 mg p.o. every 6 hours as needed for nausea. 14. Trazodone 50 mg p.o. at bedtime as needed for sleep. In addition, he will start Neupogen 480 mcg subcutaneous daily as scheduled 24 hours after his chemo therapy is complete and he will follow a regular diet as tolerated. Activity level is to ambulate a s often as possible as tolerated. He will need to follow up in the [facility] office on Saturday, Saturday , and Saturday for labs and chemistry checks to be scheduled at 8:10 each morning and also followup [facility] MD as previously scheduled. HOSPITAL COURSE: The patient was admitted to the hospital for a chemotherapy admission and started on his EPOCH chemotherapy and tolerated that exceptionally well and no incidences of fevers during t he course of his stay, and denies any mouth sores or subsequent side effects from the chemotherapy s o far. His blood pressure and vital signs remained stable throughout the course of his chemotherapy admission. He offers no specific complaints today and will go home in stable condition. ALON ROMAN [id number]/[facility] #: [id number]
[2017-02-23] MEDS ORDERED: Potassium Chlor TAB* 20 MEQ TAB.ER PO SCH (09:00)
== END 2017-02-22 15:00 | disposition home or self-care (01) | DRG 693 ==
LOC: MED 12:35
PROVIDERS: ADMIT Internal Medicine Hematology & Oncology; ATTEND Internal Medicine Hematology & Oncology
PROC: 3E03305 Introduction of Other Antineoplastic into Peripheral Vein, Percutaneous Approach (ICD-10-PCS; principal; 2017-02-18)
PROC: 3E0R305 Introduction of Other Antineoplastic into Spinal Canal, Percutaneous Approach (ICD-10-PCS; 2017-02-19)
DX: Z51.11 Encounter for antineoplastic chemotherapy (principal); C83.30 Diffuse large B-cell lymphoma, unspecified site; M89.9 Disorder of bone, unspecified; M10.9 Gout, unspecified; K59.00 Constipation, unspecified; Z79.82 Long term (current) use of aspirin; Z87.891 Personal history of nicotine dependence; Z82.0 Family history of epilepsy and other diseases of the nervous system; Z79.52 Long term (current) use of systemic steroids; Z79.891 Long term (current) use of opiate analgesic
CPT/HCPCS: 36415; 80053; 83735; 85025; 99223; 99232; 99239; A9270-GY; J1200; J1453; J1642; J1650; J1720; J2469; J3490; J7512; J9000; J9070; J9181; J9260; J9310; J9370